=== PATIENT | female | born 1955 | race Caucasian/White ===

== ENCOUNTER → 2017-09-30 | Outpatient (CLI) | payer OTHER ==
--- NOTE | 2017-10-01 10:46 | MM ---
Reason for exam: screening (asymptomatic). Last mammogram was performed 1 year and 1 month ago. History: Family history of breast cancer in mother at age 68 and breast cancer in 2 sisters. Physical Findings: A clinical breast exam by your physician is recommended on an annual basis and results should be correlated with mammographic findings. MG Screening Mammo w CAD Bilateral CC and MLO view(s) were taken. Prior study comparison: August 19, 2016, bilateral MG 3d screening mammo w/cad. December 26, 2010, bilateral digital screening mammo w/CAD. There are scattered fibroglandular densities. No suspicious abnormality. No significant changes when compared with prior studies. ASSESSMENT: Negative, BI-RAD 1 RECOMMENDATION: Routine screening mammogram of both breasts in 1 year.
== END | disposition home or self-care (01) ==
LOC: RADMAMWWP 14:58
PROVIDERS: ATTEND Family Medicine
DX: Z12.31 Encounter for screening mammogram for malignant neoplasm of breast (principal)
CPT/HCPCS: 77067

== ENCOUNTER → 2018-02-26 | Outpatient (CLI) | payer OTHER | END | disposition home or self-care (01) | LOC: LABPAT 10:19 | PROVIDERS: ATTEND Orthopaedic Surgery | DX: Z01.812 Encounter for preprocedural laboratory examination (principal) | CPT/HCPCS: 87070 ==

== ENCOUNTER 2018-03-10 08:36 | Inpatient (IN) | payer OTHER ==
[2018-03-04 13:05] VITALS: BMI 39.9
--- NOTE | 2018-03-09 09:44 | HP ---
HISTORY AND PHYSICAL CHIEF COMPLAINT: Left knee pain. HISTORY OF PRESENT ILLNESS: The patient is a 62-year-old female on disability, who presents with progressive left knee pain, worsening over the past couple years. She has tried previous medications and injections with recurrence of her symptoms. She has swelling, locking, and giving way. She has been taking narcotic medications intermittently. PAST MEDICAL HISTORY: Significant for arthritis, hypertension, reflux disease, irritable bowel syndrome, hypothyroidism, asthma, depression. PAST SURGICAL HISTORY: Significant for hysterectomy and cervical fusion. FAMILY HISTORY: Significant for cancer and heart disease. SOCIAL HISTORY: Negative for current tobacco or alcohol use. REVIEW OF SYSTEMS: A 16 point review of systems otherwise reviewed and is noncontributory. PHYSICAL EXAMINATION: The patient is approximately 5 foot 5, 250 pounds of endomorphic habitus. HEENT exam is nonfocal. Neck is supple. She has painless passive motion of her left hip. Straight leg raise is negative. Active motion left knee -10 to 105 degrees of flexion. She has a moderate effusion. She is tender about the medial joint line. Collaterals are stable, Isela is negative, Beverly's elicits medial pain. She has pain with patellofemoral compression. She has genu varum alignment. Her distal neurovascular exam appears to be intact in the left lower extremity. Previous x-rays of the left knee obtained in the office show severe medial and patellofemoral compartment narrowing. IMPRESSION: 1. Left knee severe medial and patellofemoral compartment osteoarthrosis. 2. Increased body mass index of 41.6. RECOMMENDATIONS: I talked to the patient at length regarding her condition and treatment options. At this point, she is quite symptomatic and limited because of pain related to her osteoarthrosis despite extensive conservative measures. She opts to proceed with surgery. We will plan to proceed with left total knee arthroplasty. We will institute DVT prophylaxis postoperatively. MMODL / IJN: [id number] /
[~2018-03-10 08:36] MED LIST: ACETAMINOPHEN TAB 500 MG TAB PO ONE; CLINDAMYCIN 900 MG in DEXTROSE 5% IN WATER 50 ML IVPB ONE; DEXAMETHASONE SOD PHOSPHATE 10 MG/ML 1 ML VIAL IV ONE; MELOXICAM 7.5 MG TAB PO ONE; MIDAZOLAM 2 MG/2 ML VIAL IV PRN; ONDANSETRON 4 MG/2 ML VIAL IVP ONE; SCOPOLAMINE 1.5MG/72HR PATCH TRANSDERM ONE; TRANEXAMIC ACID 1,000 MG in SODIUM CHLORIDE 0.9% 50 ML IVPB ONE; fentaNYL (PF) 50 MCG/ML 2 ML AMP IV PRN
[2018-03-10] MEDS: LACTATED RINGERS 1,000 ML IV SCH (09:08)
[2018-03-10] MEDS ORDERED: LIDOCAINE 1% 20 ML VIAL (10MG/ML) FOR IV START INTRADERMA ONE (09:09)
[2018-03-10] MEDS ORDERED: ROPIVACAINE 246.25 MG, EPINEPHrine 0.5 MG, KETOROLAC 30 MG, cloNIDine HCL/PF 80 MCG, WA... MISCELLANE ONE ×5 (10:15)
--- NOTE | 2018-03-10 10:49 | P.ONQ ---
Anesthesiology Proc Note - PNB - Peripheral Nerve Block Performed Left Adductor Canal Time Out Performed: Yes Procedure Start Time: 09:38 Indication: Acute Post-Operative Pain, Requested by physician (Dr Armando) Sedation Type: Sedate with meaningful contact maintained Preparation: Sterile Prep Position: Supine Catheter: None Needle Types: Other (see comment) (Pajunk) Needle Size: 100mm (4") Needle Gauge: 21 Injectate: 0.5% Ropivacaine (see comment for volume) (20cc) Blood Aspirated: No Pain Paresthesia on Injection Noted: No Resistance on Injection: Normal Events: Other (see comment) (Blood in cather noticed when the needle was pulled out of it. It was decided not to place an indwelling cather, therefore the patient received a single shot blockl. no complications noted)
[2018-03-10] MEDS ORDERED: CLINDAMYCIN 1,800 MG in SODIUM CHLORIDE 0.9% IRRIGATIO 3,000 ML IRRIGATION ONE (11:52)
[2018-03-10] MEDS ORDERED: LACTATED RINGERS 1,000 ML IV ONE (12:38)
[2018-03-10] MEDS ORDERED: HYDROcodone/APAP 7.5-325MG 1 EACH TAB PO PRN (13:00)
[2018-03-10] MEDS ORDERED: MORPHINE SULFATE 2 MG/ML SYRINGE IVP PRN (13:00)
[2018-03-10] MEDS ORDERED: NALOXONE 0.4 MG/ML 1 ML VIAL IV PRN (13:00)
[2018-03-10] MEDS ORDERED: MAGNESIUM HYDROXIDE 2,400 MG/10 ML CUP PO PRN (13:00)
[2018-03-10] MEDS ORDERED: MORPHINE SULFATE 2 MG/ML SYRINGE IV PRN (13:00)
[2018-03-10] MEDS ORDERED: ONDANSETRON 4 MG/2 ML VIAL IVP PRN (13:00)
--- NOTE | 2018-03-10 13:30 | P.OP ---
Date of Procedure: 03/10/18 Preoperative Diagnosis: Left knee severe tricompartmental osteoarthrosis Postoperative Diagnosis: Same Procedure(s) Performed: Left total knee [id number]-[id number]-frsqwniai stabilized Implants: Depuy Attune size 5 cemented femoral component, size 5 cemented tibial component , 9 mm articular surface, 32 mm cemented patellar component. This is a posterior stabilized implant. Anesthesia: local, spinal Surgeon: Jason Armando Applied Statistician #1: Thompson Conner Estimated Blood Loss (ml): 50 Pathology: other (Bone fragments) Condition: stable Disposition: PACU Indications for Procedure: The patient's a 62-year-old female who presents with progressive left knee pain secondary to osteoarthrosis despite conservative measures. A discussion of the risks and benefits of operative intervention versus continued conservative measures was made with patient. She opted to proceed with surgery. Operative risks to include infection, neurovascular injury, development of blood clots, possible component loosening, possible component failure and need for subsequent procedures was discussed. Informed consent was obtained. Operative Findings: As below Description of Procedure: The patient was brought to the operating room, and after induction of spinal anesthesia the left lower extremity was prepped and draped in a normal fashion. The tourniquet was inflated to 270 mmHg. A longitudinal incision extending 3 finger breaths above the superior pole of patella extending to the medial aspect the tibial tubercle was then made. The skin and subcutaneous tissues were divided sharply. Electrocautery was used for hemostasis. A medial parapatellar arthrotomy was then performed. The medial soft tissues to include the superficial and deep portions of the medial collateral ligament as well as the medial hamstring tendons were elevated subperiosteally. The proximal medial tibia osteophytes were also removed. The patella was everted. A portion of the retropatellar fat pad was excised sharply. The knee was then flexed. The anterior cruciate ligament was sacrificed. A starting hole was made in the distal femur 1 m anterior to the posterior cruciate ligament origin. An inch medullary femoral guide was gently inserted planning on 5 valgus distal cut with 9 mm distal resection. The cutting block was pinned in place. The distal cut was then made. The posterior referencing sizing guide was utilized. 3 external rotation was built into the system and verified off the trans-epicondylar axis and the posterior condyles. I felt size 5 was most appropriate. The cutting block was pinned in place. The anterior, posterior, and chamfer cuts were made. The bone fragments were removed. The notch guide was used for the intracondylar box cut. A reciprocating saw was utilized. The bone was removed in one fragment. The trial size 5 femoral components placed and was fully seated. There was good anterior to posterior and medial to lateral fit. The distal peg holes were drilled. The trial component was then removed. An extra medullary tibial guide was utilized in line with the tibial shaft and second metatarsal distally. a 0 posterior slope cutting block was utilized. I planned on 2 mm resection from the medial compartment. The cutting block was pinned in place. The proximal tibial cut was then made. The bone was removed in one fragment. The remnants of the medial and lateral menisci were excised at the capsular junction with electrocautery. The tibia sized most appropriate size 5. The trial femoral and tibial components were placed along with a 9 mm articular surface. I was tight in flexion and extension therefore an additional 2 mm was resected from the proximal tibia utilizing the cutting block. The trial components again were placed along with a 9 mm articular surface. I was able to obtain full flexion and extension with good stability with varus and valgus stress. After several flexion and extension cycles, the tibial rotation was marked with electrocautery in line with the medial one third of the tibial tubercle. Attention was then paid towards the patella. A patella reamer was utilized taking this down to 14 mm of bone stock. A good flush cut was made. The patella sized most appropriately at 32 mm. The peg holes were drilled. The trial components placed. The knee was taken through range of motion. I had good patellofemoral tracking with no hands technique. The trial components were then removed. The tibia was prepared in the appropriate rotation with appropriate drill and keel punch. Posterior osteophytes off the distal femur were carefully removed a curved osteotome. The flexion and extension gaps were checked and felt to be symmetric. The posterior soft tissues were injected with ropivacaine. The bony surfaces were prepared with pulsatile lavage and dried. The tibia was then cemented in placed and was fully seated. Excess cement was removed. The femoral component cemented in placed and was fully seated. Excess cement was removed. The trial 9 mm articular surface was placed in the knee was put in full extension. The patella component was cemented in place. After the cement had sufficiently hardened, the knee was again taken through range of motion. Again I had good stability in flexion and extension with varus and valgus stress. The trial 9 mm articular surface was removed and the final one inserted. This was gently impacted. Care was taken to avoid any soft tissue interposition. Pulsatile lavage was again utilized. The tourniquet was deflated with approximately 70 minutes total tourniquet time. Final hemostasis was obtained with electrocautery. The second dose of IV TXA was given. The medial parapatellar arthrotomy was closed with #2 Ethibond suture. A deep drain was placed exiting laterally. The subcu changed tissues were reapproximated with interrupted 2-0 Vicryl sutures. The skin was reapproximated through a subarticular strata fix suture. Skin tape and adhesive was applied. A sterile dressing was applied. The patient was then awoken from sedation and transferred to recovery room in good condition. Blood loss was estimated at 50 mL. No complications were incurred. Sponge and needle counts were correct at the end of the case.
--- NOTE | 2018-03-10 14:03 | XR ---
EXAMINATION TYPE: XR knee limited LT DATE OF EXAM: 03/10/2018 CLINICAL HISTORY: Left knee pain and arthritis status post total knee replacement. TECHNIQUE: Portable AP and crosstable lateral views of the left knee are obtained immediately postop eratively. COMPARISON: Left knee x-ray March 23, 2015 FINDINGS: Metallic hardware from total left knee arthroplasty is seen and appears satisfactory in al ignment and position. There is evidence of recent surgery with diffuse subcutaneous gas and percutan eous suprapatellar surgical drain noted. IMPRESSION: METALLIC HARDWARE FROM TOTAL LEFT KNEE ARTHROPLASTY IS SATISFACTORY IN ALIGNMENT.
[2018-03-10] MEDS: CLINDAMYCIN 900 MG in DEXTROSE 5% IN WATER 50 ML IVPB SCH ×4 (16:08→22:19)
[2018-03-10] MEDS: traMADol 50 MG TAB PO SCH ×2 (18:03→20:52)
[2018-03-10] MEDS: SENNOSIDES-DOCUSATE SODIUM 1 EACH TAB PO SCH (20:51)
[2018-03-10] MEDS ORDERED: ALBUTEROL NEBULIZED 2.5 MG/3 ML INHALATION PRN (21:03)
--- NOTE | 2018-03-10 22:11 | CONS ---
CONSULTATION DATE OF SERVICE: 03/10/2018 REASON FOR CONSULTATION: Advice regarding hypertension and hyperlipidemia requested by Orthopedic Surgery. HISTORY OF PRESENT ILLNESS: This 62-year-old woman with past medical history of asthma, fibromyalgia, GERD, hypertension, hyperlipidemia, DJD, obstructive sleep apnea being followed by Dr. Ana Amado in the outpatient setting was admitted after left total knee arthroplasty by Dr. Callejas. There is no history of fever, rigors. No headache, loss of consciousness or seizures at this time. PAST MEDICAL HISTORY: Asthma, fibromyalgia, GERD, hypertension, DJD, obstructive sleep apnea. MEDICATIONS PRIOR TO ADMISSION: Include home medications are: 1. Trazodone 300 mg q.h.s. 2. Zocor 40 mg at bedtime. 3. Protonix 40 mg daily. 4. Aleve 220 mg p.o. b.i.d. p.r.n. 5. Claritin 10 mg p.o. daily. 6. Zestril 20 mg p.o. daily. 7. Synthroid 100 mcg p.o. daily. 8. Neurontin 360 mg q.h.s. 9. Cymbalta 60 mg p.o. daily. 10.Vitamin D 3000 daily. 11.Ventolin HFA 1-2 puffs q.6h p.r.n. 12.Tylenol 325 mg q.6h p.r.n. ALLERGIES: PENICILLIN and TETRACYCLINE. FAMILY HISTORY: History of cancer, breast, uterine and cervical in the family. SOCIAL HISTORY: No history of smoking. No history of alcohol intake. REVIEW OF SYSTEMS: ENT: No diminished hearing or diminished vision. CARDIOVASCULAR SYSTEM: No angina. RESPIRATORY SYSTEM: No cough or hemoptysis. GI: No nausea. : No dysuria. NERVOUS SYSTEM: No numbness or weakness. ALLERGY/IMMUNOLOGY: No asthma. MUSCULOSKELETAL: As mentioned earlier. HEMATOLOGY/ONCOLOGY: No history of anemia. ENDOCRINE: Hypothyroidism. CONSTITUTIONAL: As mentioned earlier. DERMATOLOGY: Negative. RHEUMATOLOGY: Negative. PSYCHIATRY: As mentioned earlier. PHYSICAL EXAM: The patient is alert and oriented x3. Pulse 100, blood pressure 170/70, respiration 20, temperature 98.2, pulse ox 92% on room air. HEENT: Conjunctivae normal. Oral mucosa moist. Neck is no jugular venous distention. No carotid bruit. No lymph node enlargement. CARDIOVASCULAR: S1, S2 muffled. No S3, S4. RESPIRATORY: Breath sounds diminished at the bases. No rhonchi, no crackles. ABDOMEN: Soft, nontender. No mass palpable. LEGS: Status post left knee arthroplasty. NERVOUS SYSTEM: Higher functions as mentioned earlier. Moves all four limbs. No focal motor deficits. LYMPHATICS: No lymphadenopathy of the neck, axillae or groin. SKIN: No ulcer, rash or bleeding. LABS: Not available. ASSESSMENT: 1. Status post left total knee arthroplasty. 2. Asthma. 3. Fibromyalgia. 4. Gastroesophageal reflux disease. 5. Hypertension. 6. Hyperlipidemia. 7. Degenerative joint disease. 8. Hypothyroidism. 9. History of depression. RECOMMENDATIONS AND DISCUSSION: In this 62-year-old woman who presented with multiple medical issues at this time I recommend to continue the current medications. Resume the home medications. I would also recommend incentive spirometry and DVT prophylaxis. Hold the NSAIDs for now and we will follow the patient closely with you and the patient may be asked to follow up with the primary physician closely after discharge. Thank you, Dr. Callejas for letting us participate in the care of this patient. DVT prophylaxis. MMODL / IJN: [id number] /
[2018-03-10] MEDS: HYDROcodone/APAP 7.5-325MG 1 EACH TAB PO PRN (22:18)
[2018-03-10] MEDS: ATORVASTATIN 20 MG TAB PO SCH (22:19)
[2018-03-10] MEDS: GABAPENTIN 300 MG CAP PO SCH (22:19)
[2018-03-10] MEDS: traZODone HCL 100 MG TAB PO SCH (22:19)
[2018-03-11] MEDS: LACTATED RINGERS 1,000 ML IV SCH (00:03)
[2018-03-11] MEDS ORDERED: FAMOTIDINE 20 MG TAB PO SCH (09:00)
[2018-03-11 09:32] LABS: Basophils % (A) 0 %; Eosinophils % (A) 0 %; HCT 32.2 % (34.0-46.0); HGB 10.6 gm/dL (11.4-16.0); Lymphocytes % (A) 21 %; MCH 28.6 pg (25.0-35.0); MCHC 32.9 g/dL (31.0-37.0); MCV 87.1 fL (80.0-100.0); Mean Platelet Volume 7.4; Monocytes # (A) 0.4 k/uL (0-1.0); Monocytes % (A) 4 %; Neutrophils # (A) 7.4 k/uL (1.3-7.7); Neutrophils % (A) 74 %; Platelet Count 279 k/uL (150-450); RDW 13.8 % (11.5-15.5); WBC 9.9 k/uL (3.8-10.6)
[2018-03-11] MEDS: LISINOPRIL 20 MG TAB PO SCH (10:40)
[2018-03-11] MEDS: DULoxetine HCL 60 MG CAPSULE.DR PO SCH (10:40)
[2018-03-11] MEDS: LORATADINE 10 MG TAB PO SCH (10:40)
[2018-03-11] MEDS: PANTOPRAZOLE 40 MG TABLET PO SCH (10:40)
[2018-03-11] MEDS: CHOLECALCIFEROL 1,000 UNIT TAB PO SCH (10:40)
[2018-03-11] MEDS: traMADol 50 MG TAB PO SCH ×4 (10:40→22:21)
[2018-03-11] MEDS: RIVAROXABAN 10 MG TAB PO SCH (10:40)
[2018-03-11] MEDS: LEVOTHYROXINE 100 MCG TAB PO SCH (10:40)
[2018-03-11] MEDS: HYDROcodone/APAP 7.5-325MG 1 EACH TAB PO PRN ×2 (13:01→19:28)
--- NOTE | 2018-03-11 13:23 | P.PN ---
Subjective Progress Note Date: 03/11/18 Principal diagnosis: Status post left total knee arthroplasty Patient seen today resting in her hospital bed, she appears comfortable. She is utilizing the CPM. She denies any headaches, lightheadedness, chest pain or shortness breath. Objective - Vital Signs Vital signs: Vital Signs Temp 98.6 F 03/11/18 00:37 Pulse 77 03/11/18 00:37 Resp 16 03/11/18 00:37 BP 93/57 03/11/18 00:37 Pulse Ox 93 L 03/11/18 00:37 Intake & Output 03/10/18 03/11/18 03/11/18 18:59 06:59 18:59 Intake Total 857 1050 400 Output Total 230 750 Balance 627 300 400 Intake: IV 857 Intake, IV Titration 50 400 Amount Clindamycin 900 mg In 50 Dextrose 5% in Water 50 ml @ 100 mls/hr IVPB Q6H [facility] Rx#:[id number] Lactated Ringers 1,000 ml 400 @ 50 mls/hr IV .Q20H [facility] Rx#:[id number] Oral 1000 Output: Urine 180 750 Estimated Blood Loss 50 Other: Voiding Method Indwelling Catheter Indwelling Catheter - Exam Left lower extremity: Incision is clean, dry, and intact. The prineo tape is in good condition. There is minimal soft tissue swelling and ecchymosis surrounding the medial and lateral aspects of the incision. Calf is soft, no tenderness with palpation. Plantar flexion, dorsiflexion, EHL, FHL are intact. Sensory exam to light touch throughout the extremity is intact, dorsal pedis pulses 2+. - Labs CBC & Chem 7: 03/11/18 08:07 Labs: Abnormal Lab Results - Last 24 Hours (Table) 03/11/18 Range/Units 08:07 RBC 3.70 L (3.80-5.40) m/uL Hgb 10.6 L (11.4-16.0) gm/dL Hct 32.2 L (34.0-46.0) % Assessment and Plan Plan: Assessment: 1. Postop day 1 status post left total knee arthroplasty Plan: Pain control, continue use of oral medication GI and DVT prophylaxis, continue current medication Daily dressing changes/ice and elevate Encourage incentive spirometer Continue with physical therapy Medical recommendations Discharge planning: Patient will likely be discharged home tomorrow Time with Patient: Less than 30
--- NOTE | 2018-03-11 13:47 | CDI ---
Last Revision, August 2017 Documentation Clarification Form Date: 03/11/2018 1:34:00 PM From: Mely AraujoSINDI, CCDS Admit Date: 03/10/2018 8:36:00 AM Patient Name: Deyanira Bedolla Visit Number: [id number] Discharge Date: ATTENTION: The Clinical Documentation Specialists (CDI) and [facility] Coding Staff appreciate your assistance in clarifying documentation. Please respond to the clarification below the line at the bottom and electronically sign. The CDI & [facility] Coding staff will review the response and follow-up if needed. Please note: Queries are made part of the Legal Health Record. If you have any questions, please contact the author of this message via ITS. Dr. Jason Armando: Per your history & physical, the patient has an "increased body mass index of 41.6". History/Risk Factors: Hypertension, Hyperlipidemia, Degenerative joint disease, GERD, Fibromyalgia, Asthma and OA of left knee. Clinical Indicators: Presented for elective Left Total Knee Arthroplasty Patients weight is: 108.8 kg Patients height is: 39.9 (per nursing). Physician documentation: 41.6 Nursing Assessment postop: 1 person assist, Obesity, High risk for thrombosis, mobility slightly limited. Treatments: Routine postop care & meds. Incentive spirometry. In order to capture the severity of condition associated with patient BMI of 41.6, a clinical diagnoses needs to be documented by the physician. Please clarify: Obese Morbidly obese Other, please specify Unable to determine Please continue to document in your progress notes and discharge summary in order to capture severity of illness and risk of mortality. Include clinical findings that support your diagnosis. morbidly obese MTDD
[2018-03-11] MEDS: MORPHINE SULFATE 2 MG/ML SYRINGE IVP PRN ×3 (13:57→21:08)
--- NOTE | 2018-03-11 15:05 | PN ---
PROGRESS NOTE DATE OF SERVICE: 03/11/2018. INTERVAL HISTORY: This 62-year-old woman who was admitted after left knee arthroplasty, is being closely monitored. No chest pain. No palpitations. No fever. EXAM: Alert and oriented times three. Pulse 77. Blood pressure 93/52, respiratory rate 16, temperature 98.2, pulse ox 98% on room air. HEENT: Conjunctivae normal. NECK: No jugular venous distention. CARDIOVASCULAR: S1, S2 muffled. RESPIRATION: Breath sounds diminished in the bases. No rhonchi. No crackles. ABDOMEN: Soft, nontender. Legs: Status post surgery. CENTRAL NERVOUS SYSTEM: No focal deficits. LABS: Hemoglobin 10.6. ASSESSMENT: 1. Status post left total knee arthroplasty. 2. Asthma. 3. Fibromyalgia. 4. Gastroesophageal reflux disease. 5. Hypertension. 6. Hyperlipidemia. 7. Degenerative joint disease. 8. Hypothyroidism. 9. History of depression. RECOMMENDATIONS AND DISCUSSION: Recommend to continue current medications, management and symptomatic treatment. Otherwise, at this time, resume home medications. DVT prophylaxis. Incentive spirometry. Continue to monitor. Further recommendations to follow. MMODL / IJN: [id number] /
--- NOTE | 2018-03-11 17:37 | US ---
EXAMINATION TYPE: US venous doppler duplex LE LT DATE OF EXAM: 03/11/2018 5:25 PM COMPARISON: NONE CLINICAL HISTORY: pain. Left leg pain 1 day post op. SIDE PERFORMED: Left TECHNIQUE: The lower extremity deep venous system is examined utilizing real time linear array sonog kathya with graded compression, doppler sonography and color-flow sonography. VESSELS IMAGED: External Iliac Vein (EIV) Common Femoral Vein Deep Femoral Vein Greater Saphenous Vein * Femoral Vein Popliteal Vein Small Saphenous Vein * Proximal Calf Veins (* superficial vessels FINDINGS: Grayscale, color doppler, spectral doppler imaging performed of the deep veins of the lower extremities. There is normal flow, compressibility, vascular waveforms. IMPRESSION: NEGATIVE FOR DVT LEFT LOWER EXTREMITY.
[2018-03-11] MEDS: GABAPENTIN 300 MG CAP PO SCH (20:58)
[2018-03-11] MEDS: ATORVASTATIN 20 MG TAB PO SCH (20:59)
[2018-03-11] MEDS: traZODone HCL 100 MG TAB PO SCH (20:59)
[2018-03-11] MEDS: SENNOSIDES-DOCUSATE SODIUM 1 EACH TAB PO SCH (21:00)
[2018-03-11] MEDS ORDERED: ATORVASTATIN 20 MG TAB PO SCH (21:00)
[2018-03-11] MEDS ORDERED: traZODone HCL 100 MG TAB PO SCH (21:00)
[2018-03-11] MEDS ORDERED: GABAPENTIN 300 MG CAP PO SCH (21:00)
[2018-03-12] MEDS: LACTATED RINGERS 1,000 ML IV SCH (01:01)
[2018-03-12] MEDS: HYDROcodone/APAP 7.5-325MG 1 EACH TAB PO PRN ×3 (01:02→12:08)
[2018-03-12] MEDS: LEVOTHYROXINE 100 MCG TAB PO SCH (05:35)
--- NOTE | 2018-03-12 08:28 | P.PN ---
Subjective Progress Note Date: 03/12/18 Principal diagnosis: Status post left total knee arthroplasty Patient seen today resting in her hospital bed, she appears comfortable. She does admit to increase in pain yesterday. There was concern over pain in the back of the knee, Doppler was ordered for prophylaxis, and was negative for DVT. She notes improvement in the pain this morning. She denies any headaches , lightheadedness, chest pain or shortness breath. Objective - Vital Signs Vital signs: Vital Signs Temp 98.8 F 03/11/18 23:00 Pulse 89 03/11/18 23:00 Resp 18 03/11/18 23:00 BP 128/62 03/11/18 23:00 Pulse Ox 94 L 03/11/18 23:00 Intake & Output 03/11/18 03/12/18 03/12/18 18:59 06:59 18:59 Intake Total 400 600 Balance 400 600 Intake: Intake, IV Titration 400 600 Amount Lactated Ringers 1,000 ml 400 600 @ 50 mls/hr IV .Q20H [facility] Rx#:[id number] Other: Voiding Method Toilet # Voids 3 - Exam Left lower extremity: Incision is clean, dry, and intact. The prineo tape is in good condition. There is minimal soft tissue swelling and ecchymosis surrounding the medial and lateral aspects of the incision. Calf is soft, no tenderness with palpation. Plantar flexion, dorsiflexion, EHL, FHL are intact. Sensory exam to light touch throughout the extremity is intact, dorsal pedis pulses 2+. - Labs CBC & Chem 7: 03/11/18 08:07 Labs: Abnormal Lab Results - Last 24 Hours (Table) 03/11/18 Range/Units 08:07 RBC 3.70 L (3.80-5.40) m/uL Hgb 10.6 L (11.4-16.0) gm/dL Hct 32.2 L (34.0-46.0) % Assessment and Plan Plan: Assessment: 1. Postop day #2 status post left total knee arthroplasty Plan: Pain control, continue use of oral medication GI and DVT prophylaxis, plan for discharge home on Xarelto 10 mg daily for 12 days Daily dressing changes/ice and elevate Encourage incentive spirometer Continue with physical therapy Medical recommendations Discharge planning: Discharged home today Time with Patient: Less than 30
[2018-03-12 08:33] VITALS: BP 111/76; PULSE 92; RESP 16; TEMP 98.7
[2018-03-12] MEDS: traMADol 50 MG TAB PO SCH ×2 (08:34→13:48)
--- NOTE | 2018-03-12 08:34 | P.DS ---
Providers Date of admission: 03/10/18 08:36 Expected date of discharge: 03/12/18 Attending physician: Jason Armando Consults: 03/10/18 13:02 Consult Physician Routine Consulting Provider: Sugey Campbell Consult Reason/Comments: Medical Management Do you want consulting provider notified?: Yes 03/10/18 15:31 Consult Physician Routine Consulting Provider: Lauren Stockton Consult Reason/Comments: medical managment Do you want consulting provider notified?: Yes Primary care physician: [facility] Hospital Course: Date of admission: 03/10/2019 Date of discharge: 03/12/2018 Admission diagnosis: Status post left total knee arthroplasty Discharge diagnosis: Same Attending physician: Dr. Armando Surgical procedures: Left total knee arthroplasty Brief history: Patient is a 62-year-old female with a history of progressive primary left knee osteoarthritis. At this point patient has failed conservative treatment measures and has opted to proceed with a elective left total knee arthroplasty. Hospital course: Details of patient's surgery can be found in operative report. Patient tolerated the procedure well and was subsequently transported to orthopedic floor. Patient's orthopeidc and medical care was provided daily. Patient had daily laboratory tests performed for evaluation of overall blood counts. Patient had daily physical therapy to include strengthening range of motion as well as education with walker ambulation. Patient had daily CPM usage as part of their physical therapy program. Patient was treated with Xarelto for their postoperative DVT prophylaxis during their inpatient stay. Patient was noted to have a relatively uneventful postoperative course. Patient reported satisfactory pain control with oral pain medications by postoperative day 0. Patient showed satisfactory progress with physical therapy. Patient moved steadily through the program and had no difficulty meeting the goals by postoperative day 2. Given patient's otherwise satisfactory course and having met physical therapy goals, plan is to discharge patient home on postoperative day 2. Discharge condition/disposition: Patient will be discharged home in stable condition. Discharge medications: Instructions are given on resumption of patient's normal daily medications per primary care recommendation, in addition patient will be prescribed [place] 7.5 mg/325 mg, Colace 100 mg, Xarelto 10 mg. Discharge instructions: 1. Wound care and infection precautions, keep incision dry and covered while showering, no lotions, creams, moisturizers. No soaking, tubs, pools, hottubs. Do not scrub over the incision. 2. Weight-bear [as tolerated] with walker / cane until follow-up. 3. Ice and elevate when necessary. Do not exceed 20 minutes per hour with ice pack. 4. Utilize compression sleeve until seen at first follow up appointment. 5. Visiting nursing care. 6. Home physical therapy [including home CPM]. 7. Pain meds and anticoagulants per prescription. 8. Pain medication has potential to cause constipation. Increase oral fluid and fiber intake. Contact primary care provider if you have not had a bowel movement within 48 hours after discharge 9. No anti-inflammatory medication until discussed at first post operative visit, this including Motrin, Aleve, Mobic, Diclofenac. 10. Follow up in office at 2 weeks postop with Ismael Conner PA-C 11. Follow up with your primary care doctor 7-10 days after discharge. 12. Contact [facility] with any questions, . Procedures: Left total knee arthroplasty Patient Condition at Discharge: Good Plan - Discharge Summary Discharge Rx Participant: Yes New Discharge Prescriptions: New Rivaroxaban [Xarelto] 10 mg PO DAILY #12 tab Docusate [Colace] 100 mg PO DAILY #30 capsule HYDROcodone/APAP 7.5-325MG [[place] 7.5] 1 - 2 each PO Q6HR PRN #56 tab PRN Reason: Pain No Action Gabapentin [Neurontin] 600 mg PO HS traZODone HCL 300 mg PO HS Loratadine [Claritin] 10 mg PO DAILY Lisinopril [Zestril] 20 mg PO DAILY Levothyroxine Sodium [Synthroid] 100 mcg PO DAILY Simvastatin [Zocor] 40 mg PO HS DULoxetine HCL [Cymbalta] 60 mg PO DAILY Cholecalciferol [Vitamin D3] 1,000 unit PO DAILY Albuterol Inhaler [Ventolin Hfa Inhaler] 1 - 2 puff INHALATION RT-Q6H PRN PRN Reason: Dyspnea Acetaminophen [Tylenol] 325 mg PO Q6H PRN PRN Reason: Pain Pantoprazole Sodium [Protonix] 40 mg PO DAILY Discharge Medication List Acetaminophen [Tylenol] 325 mg PO Q6H PRN 03/04/18 [History] Albuterol Inhaler [Ventolin Hfa Inhaler] 1 - 2 puff INHALATION RT-Q6H PRN [History] Cholecalciferol [Vitamin D3] 1,000 unit PO DAILY 03/04/18 [History] DULoxetine HCL [Cymbalta] 60 mg PO DAILY 03/04/18 [History] Gabapentin [Neurontin] 600 mg PO HS 03/04/18 [History] Levothyroxine Sodium [Synthroid] 100 mcg PO DAILY 03/04/18 [History] Lisinopril [Zestril] 20 mg PO DAILY 03/04/18 [History] Loratadine [Claritin] 10 mg PO DAILY 03/04/18 [History] Pantoprazole Sodium [Protonix] 40 mg PO DAILY 03/04/18 [History] Simvastatin [Zocor] 40 mg PO HS 03/04/18 [History] traZODone HCL 300 mg PO HS 03/04/18 [History] Docusate [Colace] 100 mg PO DAILY #30 capsule 03/12/18 [Rx] HYDROcodone/APAP 7.5-325MG [[place] 7.5] 1 - 2 each PO Q6HR PRN #56 tab 03/12/18 [ Rx] Rivaroxaban [Xarelto] 10 mg PO DAILY #12 tab 03/12/18 [Rx] Follow up Appointment(s)/Referral(s): Thompson Conner PAC [[employer]ENTATIVE] - 2 Weeks Activity/Diet/Wound Care/Special Instructions: [place] is setting up home care and will notify patient of agency - [phone] [id number] Orthopedic Discharge Instructions: 1. Wound care and infection precautions, keep incision dry and covered while showering, no lotions, creams, moisturizers. No soaking, pools, hot tubs. Do not scrub over incision. 2. Weight-bear as tolerated with walker / cane until follow-up. 3. Ice and elevate when necessary. Do not exceed 20 minutes per hour with ice pack. 4. Utilize compression sleeve until seen at first follow up appointment. 5. Visiting nursing care. 6. Home physical therapy including home CPM. 7. Pain meds and anticoagulants per prescription. 8. Pain medication has potential to cause constipation. Increase oral fluid and fiber intake. Contact primary care provider if you have not had a bowel movement within 48 hours after discharge. 9. No anti-inflammatory medication until discussed at first post operative visit, this including Motrin, Aleve, Mobic, Diclofenac. 10. Follow up in office at 2 weeks postop with Ismael Conner PA-C 11. Follow up with your primary care doctor 7-10 days after discharge. 12. Contact [facility] with any questions, . Discharge Disposition: HOME WITH HOME HEALTH SERVICES
[2018-03-12] MEDS: LORATADINE 10 MG TAB PO SCH (08:35)
[2018-03-12] MEDS: CHOLECALCIFEROL 1,000 UNIT TAB PO SCH (08:35)
[2018-03-12] MEDS: LISINOPRIL 20 MG TAB PO SCH (08:35)
[2018-03-12] MEDS: PANTOPRAZOLE 40 MG TABLET PO SCH (08:35)
[2018-03-12] MEDS: DULoxetine HCL 60 MG CAPSULE.DR PO SCH (08:35)
[2018-03-12] MEDS: RIVAROXABAN 10 MG TAB PO SCH (08:35)
--- NOTE | 2018-03-12 14:27 | P.PN ---
Subjective No overnight events patient is clinically doing well is being discharged today her blood pressure is stable. No changes in medications are being made and I did review the vacation reconciliation no further recommendations from medicine perspective. Constitutional: Denied any fatigue denied any fever. Cardio vascular: denied any chest pain, palpitations Gastrointestinal denied any nausea vomiting Pulmonary: Denied any shortness of breath cough Neurologic denied any new focal deficits Objective - Vital Signs Vital signs: Vital Signs Temp 98.7 F 03/12/18 08:32 Pulse 92 03/12/18 08:32 Resp 16 03/12/18 08:32 BP 111/76 03/12/18 08:32 Pulse Ox 95 03/12/18 08:32 Intake & Output 03/11/18 03/12/18 03/12/18 18:59 06:59 18:59 Intake Total 400 600 740 Balance 400 600 740 Intake: Intake, IV Titration 400 600 Amount Lactated Ringers 1,000 ml 400 600 @ 50 mls/hr IV .Q20H WILLIS Rx#:[id number] Oral 740 Other: Voiding Method Toilet # Voids 3 2 - Exam PHYSICAL EXAMINATION: GENERAL: The patient is alert and oriented x3, not in any acute distress. Well developed, well nourished. HEENT: Pupils are round and equally reacting to light. EOMI. No scleral icterus. No conjunctival pallor. Normocephalic, atraumatic. No pharyngeal erythema. No thyromegaly. CARDIOVASCULAR: S1 and S2 present. No murmurs, rubs, or gallops. PULMONARY: Chest is clear to auscultation, no wheezing or crackles. ABDOMEN: Soft, nontender, nondistended, normoactive bowel sounds. No palpable organomegaly. MUSCULOSKELETAL: Deferred to orthopedic surgery EXTREMITIES: No cyanosis, clubbing, or pedal edema. NEUROLOGICAL: Gross neurological examination did not reveal any focal deficits. SKIN: No rashes. - Labs CBC & Chem 7: 03/11/18 08:07 Assessment and Plan Plan: Have is status post left knee arthroplasty: Pain management due to prophylaxis per primary service -Chronic intermittent asthma not in acute exacerbation -Fibromyalgia -Hypertension blood pressure is well controlled postoperatively patient was resumed on on her antidepressants medications postoperatively. -Gastro-esophageal reflux disease -Fibromyalgia -Hyperlipidemia -Hypothyroidism -Depression -Degenerative joint disease Her discharge medication reconciliation was reviewed no further recommendations for medicine perspective patient can be discharged from medicine perspective.
== END 2018-03-12 14:10 | disposition home health service (06) | DRG 470 ==
LOC: 2ORMAIN 08:36 → 3SUR 14:23
PROVIDERS: ADMIT Orthopaedic Surgery; ATTEND Orthopaedic Surgery
PROC: 0SRD0J9 Replacement of Left Knee Joint with Synthetic Substitute, Cemented, Open Approach (ICD-10-PCS; principal; 2018-03-10 10:40)
DX: M17.12 Unilateral primary osteoarthritis, left knee (principal); Z68.41 Body mass index [BMI] 40.0-44.9, adult; E66.01 Morbid (severe) obesity due to excess calories; I10 Essential (primary) hypertension; K21.9 Gastro-esophageal reflux disease without esophagitis; K58.9 Irritable bowel syndrome, unspecified; E03.9 Hypothyroidism, unspecified; J45.20 Mild intermittent asthma, uncomplicated; F32.9 Major depressive disorder, single episode, unspecified; M79.7 Fibromyalgia; E78.5 Hyperlipidemia, unspecified; G47.33 Obstructive sleep apnea (adult) (pediatric); Z79.890 Hormone replacement therapy; Z79.899 Other long term (current) drug therapy; Z90.710 Acquired absence of both cervix and uterus; Z98.1 Arthrodesis status; Z88.1 Allergy status to other antibiotic agents; Z88.0 Allergy status to penicillin; Z80.3 Family history of malignant neoplasm of breast; Z82.49 Family history of ischemic heart disease and other diseases of the circulatory system; Z80.49 Family history of malignant neoplasm of other genital organs
CPT/HCPCS: 85025; 88300; 94640

== ENCOUNTER → 2018-10-06 | Outpatient (CLI) | payer OTHER ==
--- NOTE | 2018-10-12 14:40 | MM ---
Reason for exam: screening (asymptomatic). Last mammogram was performed 1 year ago. History: Family history of breast cancer in mother at age 68 and breast cancer in 2 sisters. Physical Findings: A clinical breast exam by your physician is recommended on an annual basis and results should be correlated with mammographic findings. MG Screening Mammo w CAD Bilateral CC and MLO view(s) were taken. Prior study comparison: September 30, 2017, bilateral MG screening mammo w CAD. August 19, 2016, bilateral MG 3d screening mammo w/cad. There are scattered fibroglandular densities. No significant changes when compared with prior studies. ASSESSMENT: Negative, BI-RAD 1 RECOMMENDATION: Routine screening mammogram of both breasts in 1 year.
== END | disposition home or self-care (01) ==
LOC: RADMAMWWP 08:46
PROVIDERS: ATTEND Physician Assistant
DX: Z12.31 Encounter for screening mammogram for malignant neoplasm of breast (principal)
CPT/HCPCS: 77067

== ENCOUNTER 2019-02-18 13:03 | Observation (INO) | payer OTHER ==
[2019-02-18] MEDS ORDERED: ASPIRIN 81 MG PO STA (13:06)
--- NOTE | 2019-02-18 13:21 | ED ---
General Adult HPI - General Stated complaint: chest pain Time Seen by Provider: 02/18/19 13:06 Source: patient, RN notes reviewed Limitations: no limitations - History of Present Illness Initial comments: 63-year-old female with a past medical history of fibromyalgia, hyperlipidemia, hypertension, thyroid disorder presents to the emergency department for a chief complaint of chest pain 2 days. Patient states 2 days ago she was at her son's name. States she had to walk across the field quite a long wait started to have left-sided chest pain and pressure. States that she became diaphoretic and so mewhat short of breath. Patient at home and this resolved. Patient states yesterday she was in her group grief meeting because her granddaughter of the IPG 6 months ago. States that during this meeting she started to have this chest pressure again and became sweaty. States that she washed her face off in the bathroom and started to feel somewhat better. States she was following up with her doctor today at [facility] for headaches that have been ongoing chronically and when she mentioned the chest pain he wanted her to be evaluated through the emergency department. The patient denies any smoking history. Does admit to history of hyperlipidemia and hypertension. States that sister had an VT requiring stent placement when she was only 39. States her parents both had heart problems but she does not know much about this. States she is pain-free at this time.Patient has no other complaints at this time including abdominal pain, nausea or vomiting, headache, or visual changes. - Related Data Home Medications Medication Instructions Recorded Confirmed Albuterol Inhaler [Ventolin Hfa 1 - 2 puff INHALATION RT-Q6H PRN 03/04/18 10/08/18 Inhaler] DULoxetine HCL [Cymbalta] 60 mg PO BID 03/04/18 10/08/18 Levothyroxine Sodium [Synthroid] 100 mcg PO DAILY 03/04/18 10/08/18 Lisinopril [Zestril] 20 mg PO DAILY 03/04/18 10/08/18 Loratadine [Claritin] 10 mg PO DAILY 03/04/18 10/08/18 traZODone HCL 300 mg PO HS 03/04/18 10/08/18 Gabapentin [Neurontin] 400 mg PO TID 10/08/18 10/08/18 Omeprazole 40 mg PO DAILY 10/08/18 10/08/18 Simvastatin [Zocor] 20 mg PO HS 10/08/18 10/08/18 Previous Rx's Medication Instructions Recorded Cyclobenzaprine [Flexeril] 10 mg PO TID #20 tab 10/08/18 Ibuprofen 600 mg PO TID #30 tablet 10/08/18 Nitrofurantoin Monohyd/M-Cryst 100 mg PO Q12HR #14 cap 10/08/18 [Macrobid] Allergies Allergy/AdvReac Type Severity Reaction Status Date / Time Penicillins Allergy Swelling Verified 02/18/19 13:38 Tetracyclines Allergy Dyspnea Verified 02/18/19 13:38 Review of Systems ROS Statement: Those systems with pertinent positive or pertinent negative responses have been documented in the HPI. ROS Other: All systems not noted in ROS Statement are negative. Past Medical History Past Medical History: Fibromyalgia, Hyperlipidemia, Hypertension, Thyroid Disorder Additional Past Medical History / Comment(s): Chronic back pain. History of Any Multi-Drug Resistant Organisms: None Reported Past Surgical History: Hysterectomy Additional Past Surgical History / Comment(s): cervical fusion Oct 2017 Past Anesthesia/Blood Transfusion Reactions: No Reported Reaction Past Psychological History: Depression Smoking Status: Never smoker Past Alcohol Use History: None Reported Past Drug Use History: None Reported - Past Family History Mother Sister(s) Family Medical History: Cancer Additional Family Medical History / Comment(s): breast,uterine,cervical Brother(s) Family Medical History: Cancer General Exam General appearance: alert, in no apparent distress Head exam: Present: atraumatic, normocephalic, normal inspection Eye exam: Present: normal appearance, PERRL, EOMI. Absent: scleral icterus, conjunctival injection, periorbital swelling ENT exam: Present: normal exam, mucous membranes moist Neck exam: Present: normal inspection, full ROM. Absent: tenderness, meningismus, lymphadenopathy Respiratory exam: Present: normal lung sounds bilaterally. Absent: respiratory distress, wheezes, rales, rhonchi, stridor, chest wall tenderness Cardiovascular Exam: Present: regular rate, normal rhythm, normal heart sounds. Absent: systolic murmur, diastolic murmur, rubs, gallop, clicks GI/Abdominal exam: Present: soft, normal bowel sounds. Absent: distended, tenderness, guarding, rebound, rigid Neurological exam: Present: alert, oriented X3, CN II-XII intact Psychiatric exam: Present: normal affect, normal mood Course Vital Signs 02/18/19 02/18/19 13:15 14:36 Temperature 98.1 F 97.9 F Pulse Rate 72 71 Respiratory 18 18 Rate Blood Pressure 142/85 143/73 O2 Sat by Pulse 99 100 Oximetry EKG Findings - EKG Comments: EKG Findings:: Normal sinus rhythm, ventricular rate 75, CT interval 158, QTC 439, no evidence of ST elevation or depression, T-wave inversions noted in V2 V3 Medical Decision Making - Medical Decision Making 63-year-old female with a past medical history of fibromyalgia, hyperlipidemia, hypertension since to the emergency department for chest pain 2 days. Chest pain does seem to be secondary to exertion and includes diaphoresis and a pressure in her chest. Also include shortness of breath. Patient is currently pain-free at this time but did come to the ER because her primary care provider wanted her to be seen. CBC and CMP are unremarkable. Troponin is negative. EKG does not show any evidence of elevation or depressions but does show inverted T waves in V2 V3. Patient was given aspirin however as she denies any chest pain whatsoever she was not heparinized. Patient is complaining of headache which is chronic and has been ongoing for several months. Will be given Tylenol for this. Vitals are stable. Patient will be admitted for cardiology consultation and trending troponin. - Lab Data Result diagrams: 02/18/19 13:15 02/18/19 13:15 Lab Results 02/18/19 02/18/19 02/18/19 Range/Units 13:15 13:15 13:15 WBC 5.6 (3.8-10.6) k/uL RBC 4.20 (3.80-5.40) m/uL Hgb 11.8 (11.4-16.0) gm/dL Hct 35.4 (34.0-46.0) % MCV 84.5 (80.0-100.0) fL MCH 28.1 (25.0-35.0) pg MCHC 33.3 (31.0-37.0) g/dL RDW 13.9 (11.5-15.5) % Plt Count 321 (150-450) k/uL Neutrophils % 48 % Lymphocytes % 39 % Monocytes % 7 % Eosinophils % 3 % Basophils % 1 % Neutrophils # 2.7 (1.3-7.7) k/uL Lymphocytes # 2.2 (1.0-4.8) k/uL Monocytes # 0.4 (0-1.0) k/uL Eosinophils # 0.2 (0-0.7) k/uL Basophils # 0.0 (0-0.2) k/uL PT 9.6 (9.0-12.0) sec INR 0.9 (<1.2) APTT 23.9 (22.0-30.0) sec Sodium 139 (137-145) mmol/L Potassium 4.3 (3.5-5.1) mmol/L Chloride 104 (98-107) mmol/L Carbon Dioxide 29 (22-30) mmol/L Anion Gap 6 mmol/L BUN 16 (7-17) mg/dL Creatinine 0.81 (0.52-1.04) mg/dL Est GFR (CKD-EPI)AfAm >90 (>60 ml/min/1.73 sqM) Est GFR (CKD-EPI)NonAf 79 (>60 ml/min/1.73 sqM) Glucose 99 (74-99) mg/dL Calcium 9.5 (8.4-10.2) mg/dL Magnesium 1.9 (1.6-2.3) mg/dL Total Bilirubin 0.4 (0.2-1.3) mg/dL AST 21 (14-36) U/L ALT 22 (9-52) U/L Alkaline Phosphatase 60 (38-126) U/L Troponin I (0.000-0.034) ng/mL Total Protein 7.1 (6.3-8.2) g/dL Albumin 4.4 (3.5-5.0) g/dL /03/03 Range/Units 13:15 WBC (3.8-10.6) k/uL RBC (3.80-5.40) m/uL Hgb (11.4-16.0) gm/dL Hct (34.0-46.0) % MCV (80.0-100.0) fL MCH (25.0-35.0) pg MCHC (31.0-37.0) g/dL RDW (11.5-15.5) % Plt Count (150-450) k/uL Neutrophils % % Lymphocytes % % Monocytes % % Eosinophils % % Basophils % % Neutrophils # (1.3-7.7) k/uL Lymphocytes # (1.0-4.8) k/uL Monocytes # (0-1.0) k/uL Eosinophils # (0-0.7) k/uL Basophils # (0-0.2) k/uL PT (9.0-12.0) sec INR (<1.2) APTT (22.0-30.0) sec Sodium (137-145) mmol/L Potassium (3.5-5.1) mmol/L Chloride (98-107) mmol/L Carbon Dioxide (22-30) mmol/L Anion Gap mmol/L BUN (7-17) mg/dL Creatinine (0.52-1.04) mg/dL Est GFR (CKD-EPI)AfAm (>60 ml/min/1.73 sqM) Est GFR (CKD-EPI)NonAf (>60 ml/min/1.73 sqM) Glucose (74-99) mg/dL Calcium (8.4-10.2) mg/dL Magnesium (1.6-2.3) mg/dL Total Bilirubin (0.2-1.3) mg/dL AST (14-36) U/L ALT (9-52) U/L Alkaline Phosphatase (38-126) U/L Troponin I <0.012 (0.000-0.034) ng/mL Total Protein (6.3-8.2) g/dL Albumin (3.5-5.0) g/dL - EKG Data -: EKG Interpreted by Me (and Dr Aguillon) Disposition Clinical Impression: Chest pain Disposition: ADMITTED IP TO THIS HOSP Condition: Fair Is patient prescribed a controlled substance at d/c from ED?: No Referrals: [facility],Clinic [Primary Care Provider] - 1-2 days Time of Disposition: 15:06
[2019-02-18 13:51] LABS: Basophils % (A) 1 %; Eosinophils # (A) 0.2 k/uL (0-0.7); Eosinophils % (A) 3 %; HCT 35.4 % (34.0-46.0); HGB 11.8 gm/dL (11.4-16.0); Lymphocytes # (A) 2.2 k/uL (1.0-4.8); Lymphocytes % (A) 39 %; MCH 28.1 pg (25.0-35.0); MCHC 33.3 g/dL (31.0-37.0); MCV 84.5 fL (80.0-100.0); Mean Platelet Volume 7.6; Monocytes # (A) 0.4 k/uL (0-1.0); Monocytes % (A) 7 %; Neutrophils # (A) 2.7 k/uL (1.3-7.7); Neutrophils % (A) 48 %; Platelet Count 321 k/uL (150-450); RDW 13.9 % (11.5-15.5); WBC 5.6 k/uL (3.8-10.6)
[2019-02-18 13:58] LABS: ALT 22 U/L (9-52); AST 21 U/L (14-36); African American GFR (CKD) >90 (>60 ml/min/1.73 sqM); Albumin 4.4 g/dL (3.5-5.0); Alkaline Phosphatase 60 U/L (38-126); Anion Gap 6 mmol/L; Blood Urea Nitrogen 16 mg/dL (7-17); Calcium 9.5 mg/dL (8.4-10.2); Carbon Dioxide 29 mmol/L (22-30); Chloride 104 mmol/L (98-107); Glucose 99 mg/dL (74-99); Magnesium 1.9 mg/dL (1.6-2.3); Potassium 4.3 mmol/L (3.5-5.1); Sodium 139 mmol/L (137-145); Total Bilirubin 0.4 mg/dL (0.2-1.3); Total Protein 7.1 g/dL (6.3-8.2)
[2019-02-18 14:06] LABS: INR 0.9 (<1.2); Partial Thromboplastin Time 23.9 sec (22.0-30.0); Prothrombin Time 9.6 sec (9.0-12.0)
--- NOTE | 2019-02-18 14:18 | XR ---
EXAMINATION TYPE: XR chest 2V DATE OF EXAM: 02/18/2019 COMPARISON: None INDICATION: Chest pain TECHNIQUE: Frontal and lateral views of the chest are obtained. FINDINGS: The heart size is normal. The pulmonary vasculature is normal. The lungs are clear. IMPRESSION: 1. No acute pulmonary process.
[2019-02-18] MEDS ORDERED: ACETAMINOPHEN TAB 325 MG TAB PO STA (15:03)
[2019-02-18] MEDS ORDERED: NITROGLYCERIN SL TABS 0.4 MG TAB SUBLINGUAL PRN (15:06)
[2019-02-18] MEDS ORDERED: SODIUM CHLORIDE 0.9% 1,000 ML IV STA (15:09)
[2019-02-18] MEDS ORDERED: FLUTICASONE 50MCG/SPRAY NASAL 16GM EA NOSTRIL PRN (23:15)
[2019-02-18] MEDS ORDERED: ATORVASTATIN 20 MG TAB PO SCH (23:15)
[2019-02-18] MEDS ORDERED: traZODone HCL 50 MG TAB PO SCH (23:15)
[2019-02-18] MEDS: LISINOPRIL 20 MG TAB PO SCH (23:27)
[2019-02-18] MEDS: LORATADINE 10 MG TAB PO SCH (23:28)
[2019-02-18] MEDS: GABAPENTIN 400 MG CAP PO SCH (23:28)
[2019-02-19] MEDS: Carboxymethylcellulose Sodium [Refresh Tears] BOTH EYES SCH ×2 (01:06→12:10)
[2019-02-19 02:39] LABS: Cholesterol 155 mg/dL (<200); HDL Cholesterol 57 mg/dL (40-60); LDL Cholesterol,Calculated 78 mg/dL (0-99); Triglycerides 102 mg/dL (<150)
[2019-02-19] MEDS ORDERED: LEVOTHYROXINE 100 MCG TAB PO SCH (06:30)
--- NOTE | 2019-02-19 07:39 | P.CRDCN ---
History of Present Illness Consult date: 02/19/19 Chief complaint: Chest pain History of present illness: This is a pleasant 63-year-old female patient with a past medical history significant for hypertension as well as dyslipidemia and history of depression presented to the emergency room complaining of chest discomfort. She was in her usual state of health when she was watching a baseball game with her grandson the day before yesterday when she was walking to her car and started experien cing discomfort in the mid of the chest, as a pressure on the chest, without any radiation to the arm or neck or shoulders but it was associated with shortness of breath as well as a sweating. The discomfort lasted for about 15 minutes. The following day, she was walking in the hallway when she started experiencing chest discomfort again. She described it as a pressure again on the chest without any radiation and without any associated symptoms at this time. The patient does have hypertension as well as dyslipidemia. She is not a smoker. She does have fairly significant family history of coronary artery disease with her sister who does have CAD and prior stenting and she is in the 30s. The EKG showed sinus rhythm with nonspecific changes. The cardiac enzymes were checked and came in to be unremarkable. The chest x-ray did not show any acute abnormalities. Past Medical History Past Medical History: Fibromyalgia, Hyperlipidemia, Hypertension, Thyroid Disorder Additional Past Medical History / Comment(s): Chronic back pain. hypothyroid. History of Any Multi-Drug Resistant Organisms: None Reported Past Surgical History: Hysterectomy Additional Past Surgical History / Comment(s): cervical fusion Oct 2017, left total knee replacement. Past Anesthesia/Blood Transfusion Reactions: No Reported Reaction Past Psychological History: Anxiety, Depression Smoking Status: Never smoker Past Alcohol Use History: None Reported Past Drug Use History: None Reported - Past Family History Mother Sister(s) Family Medical History: Cancer Additional Family Medical History / Comment(s): breast,uterine,cervical Brother(s) Family Medical History: Cancer Medications and Allergies Home Medications Medication Instructions Recorded Confirmed Type Levothyroxine Sodium [Synthroid] 100 mcg PO DAILY 03/04/18 02/18/19 History Lisinopril [Zestril] 20 mg PO DAILY 03/04/18 02/18/19 History Loratadine [Claritin] 10 mg PO DAILY 03/04/18 02/18/19 History traZODone HCL 300 mg PO HS 03/04/18 02/18/19 History Gabapentin [Neurontin] 400 mg PO TID 10/08/18 02/18/19 History Carboxymethylcellulose Sodium 1 drop BOTH EYES TID 02/18/19 02/18/19 History [Refresh Tears] Cholecalciferol [Vitamin D3 (25 1,000 unit PO DAILY 02/18/19 02/18/19 History Mcg = 1000 Iu)] DULoxetine HCL [Cymbalta] 90 mg PO DAILY 02/18/19 02/18/19 History Fluticasone Nasal [place] [Flonase 1 spray EA NOSTRIL DAILY 02/18/19 02/18/19 History Nasal [place]] Meloxicam 15 mg PO DAILY 02/18/19 02/18/19 History [place]-3 Fatty Acids/Fish Oil [Fish 1 cap PO DAILY 02/18/19 02/18/19 History Oil 1,000 mg Softgel] Pantoprazole [Protonix] 40 mg PO DAILY 02/18/19 02/18/19 History Simvastatin [Zocor] 40 mg PO HS 02/18/19 02/18/19 History Allergies Allergy/AdvReac Type Severity Reaction Status Date / Time Penicillins Allergy Swelling Verified 02/18/19 15:54 Tetracyclines Allergy Dyspnea Verified 02/18/19 15:54 Physical Exam Vitals: Vital Signs Temp Pulse Pulse Resp BP BP Pulse Ox 02/19/19 07:10 97.9 F 65 16 126/78 96 02/19/19 04:00 76 16 02/19/19 03:56 97.8 F 67 16 128/66 94 L 02/19/19 00:00 67 16 02/18/19 23:38 97.9 F 67 16 113/56 95 02/18/19 20:00 70 16 02/18/19 19:43 98.2 F 68 16 116/72 94 L 02/18/19 17:35 98.2 F 70 16 114/71 100 02/18/19 17:02 98.2 F 68 18 133/69 100 02/18/19 15:30 72 18 117/73 100 02/18/19 14:36 97.9 F 71 18 143/73 100 02/18/19 13:15 98.1 F 72 18 142/85 99 Intake and Output 02/18/19 02/19/19 02/19/19 22:59 06:59 14:59 Other: Voiding Method Toilet Toilet # Voids 2 - Constitutional General appearance: no acute distress - Respiratory Respiratory: bilateral: CTA - Cardiovascular Rhythm: regular Heart sounds: normal: S1, S2 Results 02/18/19 13:15 02/18/19 13:15 Cardiac Enzymes 02/18/19 02/18/19 02/18/19 Range/Units 13:15 13:15 18:51 AST 21 (14-36) U/L Troponin I <0.012 <0.012 (0.000-0.034) ng/mL 02/19/19 Range/Units 01:00 AST (14-36) U/L Troponin I <0.012 (0.000-0.034) ng/mL Coagulation 02/18/19 Range/Units 13:15 PT 9.6 (9.0-12.0) sec APTT 23.9 (22.0-30.0) sec Lipids 02/18/19 Range/Units 13:15 Triglycerides 102 (<150) mg/dL Cholesterol 155 (<200) mg/dL HDL Cholesterol 57 (40-60) mg/dL CBC 02/18/19 Range/Units 13:15 WBC 5.6 (3.8-10.6) k/uL RBC 4.20 (3.80-5.40) m/uL Hgb 11.8 (11.4-16.0) gm/dL Hct 35.4 (34.0-46.0) % Plt Count 321 (150-450) k/uL Comprehensive Metabolic Panel 02/18/19 Range/Units 13:15 Sodium 139 (137-145) mmol/L Potassium 4.3 (3.5-5.1) mmol/L Chloride 104 (98-107) mmol/L Carbon Dioxide 29 (22-30) mmol/L BUN 16 (7-17) mg/dL Creatinine 0.81 (0.52-1.04) mg/dL Glucose 99 (74-99) mg/dL Calcium 9.5 (8.4-10.2) mg/dL AST 21 (14-36) U/L ALT 22 (9-52) U/L Alkaline Phosphatase 60 (38-126) U/L Total Protein 7.1 (6.3-8.2) g/dL Albumin 4.4 (3.5-5.0) g/dL Current Medications Generic Name Dose Route Start Last Admin Trade Name Freq PRN Reason Stop Dose Admin Aspirin 325 mg 02/19/19 09:00 Aspirin PO DAILY [facility] Atorvastatin Calcium 20 mg 02/18/19 23:15 02/18/19 23:27 Lipitor PO 20 mg HS WILLIS Administration Cholecalciferol 1,000 unit 02/19/19 09:00 Vitamin D3 (25 Mcg = 1000 Iu) PO DAILY [facility] Duloxetine HCl 90 mg 02/19/19 09:00 Cymbalta PO DAILY [facility] Fluticasone Propionate 1 spray 02/18/19 23:15 Flonase Nasal [place] EA NOSTRIL DAILY PRN ALLERGIES Gabapentin 400 mg 02/18/19 23:15 02/18/19 23:28 Neurontin PO 400 mg TID WILLIS Administration Levothyroxine Sodium 100 mcg 02/19/19 06:30 02/19/19 05:29 Synthroid PO 100 mcg DAILY@0630 [facility] Administration Lisinopril 20 mg 02/18/19 23:15 02/18/19 23:27 Zestril PO Not Given DAILY [facility] Loratadine 10 mg 02/18/19 23:15 02/18/19 23:28 Claritin PO Not Given DAILY [facility] Nitroglycerin 0.4 mg 02/18/19 15:06 Nitrostat SUBLINGUAL Q5M PRN Chest Pain Carboxymethylcellulo 1 drop 02/18/19 23:15 02/19/19 01:06 se Sodium [Refresh BOTH EYES Not Given Tears] TID [facility] Pantoprazole Sodium 40 mg 02/19/19 09:00 Protonix PO DAILY [facility] Trazodone HCl 300 mg 02/18/19 23:15 02/18/19 23:27 Desyrel PO 300 mg HS [facility] Administration Intake and Output 02/18/19 02/19/19 02/19/19 22:59 06:59 14:59 Other: Voiding Method Toilet Toilet # Voids 2 02/18/19 13:15 02/18/19 13:15 Assessment and Plan Assessment: Assessment #1 intermittent episodes of chest discomfort #2 multiple risk factors for CAD including hypertension and dyslipidemia #3 significant family history of coronary artery disease Plan #1 the patient was ruled out for acute coronary syndrome #2 I am concerned about severe CAD behind her symptoms #3 I did recommend proceeding with a stress test and echocardiogram #4 follow-up with the patient Thank you for allowing us participate in her care
[2019-02-19] MEDS ORDERED: AMINOPHYLLINE 500 MG/20 ML VIAL IV PRN (07:41)
[2019-02-19] MEDS ORDERED: CAFFEINE CITRATE 60 MG/3 ML VIAL IV PRN (07:41)
--- NOTE | 2019-02-19 07:56 | HP ---
HISTORY AND PHYSICAL DATE OF SERVICE: 02/18/2019 CHIEF COMPLAINT: Chest pain. HISTORY OF PRESENT ILLNESS: This 63-year-old woman with a past medical history of multiple medical problems including fibromyalgia, hypertension, hyperlipidemia, history of DJD, anxiety and depression being followed by [facility] in the outpatient setting was complaining of significant social stressors. The patient apparently had a stress test some time ago which was reported negative. The results are not available at this time. Currently, the patient is complaining of chest pain which is mostly in central part and left side of the chest for the last 2 days. The pain was increasing on walking and also sharp and pressure type of character and the patient also had shortness of breath, and as well as diaphoresis also. The patient came to [facility] admitted for evaluation and treatment. The initial troponins are negative at this time. Initial EKG showed ST changes. There is no history of fever, rigors. No headache, loss of consciousness or seizures. Patient had family history of coronary artery disease also. PAST MEDICAL HISTORY: Past medical history of fibromyalgia, hyperlipidemia, hypertension, hypothyroidism, history of anxiety and depression. MEDICATIONS ARE: 1. Trazodone 300 mg q.h.s. 2. Zocor 40 mg q.h.s. 3. Protonix 40 mg p.o. daily. 4. Synthroid 100 mcg p.o. daily. 5. Vitamin D 3000 mg b.i.d. 6. Meloxicam 50 mg p.o. daily. 7. Neurontin 400 mg p.o. t.i.d. 8. Cymbalta 90 mg p.o. daily. 9. Refresh 1 drop eyes t.i.d. 10.Fish oil 1 p.o. daily. 11.Claritin 10 mg p.o. daily. 12.Zestril 20 mg p.o. daily. 13.Flonase 1 spray daily. ALLERGIES: PENICILLIN. FAMILY HISTORY: History of breast cancer, uterine cancer, cervical cancer. SOCIAL HISTORY: No history of smoking. No history of alcohol intake. REVIEW OF SYSTEMS: ENT: No diminished vision. No diminished hearing. CARDIOVASCULAR SYSTEM: As mentioned earlier. RESPIRATORY: As mentioned earlier. GI no nausea or vomiting. no dysuria. NERVOUS SYSTEM: No angina or palpitations. ALLERGY/IMMUNOLOGY: No asthma or hayfever. MUSCULOSKELETAL as mentioned earlier. HEMATOLOGY/ONCOLOGY: No history of anemia. ENDOCRINE: No history of diabetes. The patient has hypothyroidism. CONSTITUTIONAL: As mentioned earlier. DERMATOLOGY: Negative. RHEUMATOLOGY: Negative. PSYCHIATRY: As mentioned earlier. PHYSICAL EXAMINATION: GENERAL: Alert and oriented x3. VITAL SIGNS: Pulse is 67. Blood pressure 113/56, respirations 16, temperature 97.9, pulse ox 94% on room air. HEENT: Conjunctivae normal. Oral mucosa moist. NECK is no jugular venous distention. No carotid bruit. No lymph node enlargement. CARDIOVASCULAR system: S1, S2 muffled. RESPIRATORY: Breath sounds diminished in the bases. A few scattered rhonchi. No crackles. ABDOMEN: Soft, nontender. No mass palpable. LEGS: No edema. No swelling. NERVOUS SYSTEM: Higher functions as mentioned earlier. Moves all 4 limbs. No focal motor or sensory deficits. LYMPHATICS: No lymph nodes palpable in the neck, axillae or groin. JOINTS no active deforming arthropathy. LABS: At this time shows CBC within normal limits. INR is 0.9, PTT is 9.6. CMP within normal limits. ASSESSMENT: 1. Chest pain possible unstable angina. 2. Hypertension. 3. Hyperlipidemia. 4. Fibromyalgia. 5. Social stressors. 6. Hypothyroid. 7. Chronic back pain. 8. History of cervical fusion. 9. History of anxiety and depression. 10.Obesity with body mass index of 40.9. RECOMMENDATIONS AND DISCUSSION: This 63-year-old woman who presented with multiple complex medical issues, we will monitor the patient closely. Continue the current medications, management and symptomatic treatment. Unstable angina protocol. Closely follow with Cardiology. Resume the home medications. Otherwise, I would also recommend review of the previous stress test and continue to monitor. supply service worker to address social issues. Repeat labs will be ordered. Prognosis guarded because of multiple complex medical issues. Discussed with the patient. A copy of dictation being forwarded to Dr. Marino who is the primary physician. MMJOSHL / SAMANTHAN: [id number] /
[2019-02-19] MEDS ORDERED: DIPYRIDAMOLE IV ONE (08:00)
[2019-02-19] MEDS ORDERED: SODIUM CHLORIDE 0.9% IV ONE (08:00)
[2019-02-19] MEDS ORDERED: DULoxetine HCL 30 MG CAPSULE.DR PO SCH (09:00)
[2019-02-19] MEDS ORDERED: CHOLECALCIFEROL 1,000 UNIT TAB PO SCH (09:00)
[2019-02-19] MEDS ORDERED: NON-FORMULARY DRUG (Omega-3 Fatty Acids/Fish Oil [Fish Oil 1,000 Mg Softgel] 1 CAP) PO SCH (09:00)
[2019-02-19] MEDS ORDERED: ASPIRIN 325 MG TAB PO SCH (09:00)
[2019-02-19] MEDS ORDERED: PANTOPRAZOLE 40 MG TABLET PO SCH (09:00)
--- NOTE | 2019-02-19 10:39 | ECHOF ---
Referral Reason:cp MEASUREMENTS -------- HEIGHT: 165.1 cm WEIGHT: 111.6 kg BP: 126/78 RVIDd: 2.4 cm (< 3.3) IVSd: 1.6 cm (0.6 - 1.1) LVIDd: 3.9 cm (3.9 - 5.3) LVPWd: 1.6 cm (0.6 - 1.1) IVSs: 1.9 cm LVIDs: 2.6 cm LVPWs: 1.8 cm LAESV Index (A-L): 14.27 ml/m Ao Diam: 3.4 cm (2.0 - 3.7) AV Cusp: 2.0 cm (1.5 - 2.6) LA Diam: 3.5 cm (2.7 - 3.8) MV EXCURSION: 8.677 mm (> 18.000) MV EF SLOPE: 84 mm/s (70 - 150) EPSS: 0.6 cm MV E Farzad: 0.60 m/s MV DecT: 223 ms MV A Farzad: 0.63 m/s MV E/A Ratio: 0.95 RAP: 5.00 mmHg RVSP: 20.11 mmHg FINDINGS -------- Sinus rhythm. This was a technically good study. The left ventricular size is normal. There is moderate concentric left ventricular hypertrophy. O verall left ventricular systolic function is normal with, an EF between 55 - 60 %. The right ventricle is normal in size. The left atrial size is normal. The right atrial size is normal. Interatrial and interventricular septum intact. The aortic valve is trileaflet and appears structurally normal. The mitral valve is normal. There is trace mitral regurgitation. Trace tricuspid regurgitation present. Right ventricular systolic pressure is normal at < 35 mmHg. There is no pulmonic regurgitation present. The aortic root size is normal. Normal inferior vena cava with normal inspiratory collapse consistent with estimated right atrial pre ssure of 5 mmHg. There is no pericardial effusion. CONCLUSIONS -------- 1. Sinus rhythm. 2. This was a technically good study. 3. The left ventricular size is normal. 4. There is moderate concentric left ventricular hypertrophy. 5. Overall left ventricular systolic function is normal with, an EF between 55 - 60 %. 6. The right ventricle is normal in size. 7. The left atrial size is normal. 8. The right atrial size is normal. 9. Interatrial and interventricular septum intact. 10. The aortic valve is trileaflet and appears structurally normal. 11. The mitral valve is normal. 12. There is trace mitral regurgitation. 13. Trace tricuspid regurgitation present. 14. Right ventricular systolic pressure is normal at < 35 mmHg. 15. There is no pulmonic regurgitation present. 16. The aortic root size is normal. 17. Normal inferior vena cava with normal inspiratory collapse consistent with estimated right atrial pressure of 5 mmHg. 18. There is no pericardial effusion. CEMENT TESTER ASSISTANT: Lainey Conn RDCS
[2019-02-19 12:10] VITALS: BP 121/64; PULSE 72; RESP 17; TEMP 98.4
[2019-02-19] MEDS: LORATADINE 10 MG TAB PO SCH (12:13)
[2019-02-19] MEDS: LISINOPRIL 20 MG TAB PO SCH (12:14)
[2019-02-19] MEDS: GABAPENTIN 400 MG CAP PO SCH (12:14)
--- NOTE | 2019-02-19 12:40 | NM ---
EXAMINATION TYPE: NM stress persantine cardiolit DATE OF EXAM: 02/19/2019 COMPARISON: NONE HISTORY: Chest pain TECHNIQUE: After the intravenous administration of 10.3 mCi Tc 99m Sestamibi - Cardiolite resting SP ECT images acquired 60 minutes post injection. The patient received 64 mg Persantine, 25.7 mCi Tc 99m Sestamibi - Stress images obtained 35 minutes post injection FINDINGS: Review of stress and rest SPECT images demonstrates decreased radio pharmaceutical uptake along the i nferolateral left ventricle extending towards the apex on stress as compared to rest images. Gated a nalysis shows normal wall motion with an estimated left ventricular ejection fraction of 62 %. IMPRESSION: Pharmacologically induced left ventricular myocardial ischemia
--- NOTE | 2019-02-19 13:44 | EST ---
EXERCISE STRESS DATE OF SERVICE: 02/19/2019 AGE: 63 SEX: Female HT: 5'5" WT: 246 PROTOCOL: Persantine Cardiolite STAGE: DURATION OF EXERCISE: HEART RATE REST: 64 BLOOD PRESSURE REST: 122/70 MAXIMUM HEART RATE ACHIEVED: 83 MAXIMUM BLOOD PRESSURE: 128/67 85% MPHR: 135 100% MPHR: 159 METS: INDICATIONS: Chest pain. CLINICAL INFORMATION: STRESS DATA: Heart rate is 64, pressure 122/70 mmHg. Baseline EKG showed sinus mechanism. There was 64 mg of Persantine given over 15 seconds per protocol. Max heart rate was 83 beats per minute. Maximum pressure was 128/67 mmHg. Clinically the patient did not have any symptoms and the EKG did not show any significant ST or T-wave abnormalities concerning for ischemia. CONCLUSION: 1. Nondiagnostic electrocardiogram stress testing in response to Persantine. 2. Please follow up on the Cardiolite portion on separate report from radiology department. MMODL / IJN: [id number] /
--- NOTE | 2019-02-19 15:05 | PN ---
PROGRESS NOTE DATE OF SERVICE: 02/19/2019 This is a 63-year-old woman admitted with chest pain, had an abnormal stress test, pharmacologically induced reversible ischemia is suspected in the Cardiolite stress test. No chest pain. No palpitations. No fever. PHYSICAL EXAM: Alert and oriented x3. Pulse 72, blood pressure 120/65, respirations 17, temperature 98.2, pulse ox 94% on room air skin: HEENT: Conjunctivae normal. NECK: No jugular venous distension. CARDIOVASCULAR SYSTEM: S1, S2, muffled. RESPIRATION: Breath sounds diminished at the bases. No rhonchi. No crackles. ABDOMEN: Soft, nontender. LEGS: No edema, no swelling. NERVOUS SYSTEM: No focal deficits. LABS: CBC, BMP within normals. ASSESSMENT: 1. Chest pain, possible unstable angina. 2. Possible positive stress test. 3. Hypertension. 4. Hyperlipidemia. 5. History of fibromyalgia. 6. Social stressors. 7. Hypothyroid. 8. Chronic back pain. 9. History of cervical fusion. 10.History of anxiety, depression. 11.Obesity with body mass index 40.9. RECOMMENDATION: Recommend to continue current medications, symptomatic treatment. Otherwise closely with Cardiology. Possible cardiac cath. Guarded prognosis because of multiple complex medical issues. Further recommendations to follow. MMODL / IJN: [id number] /
== END 2019-02-19 14:10 | disposition home or self-care (01) ==
LOC: EC 13:03 → 1SOBS 15:00
PROVIDERS: ADMIT Internal Medicine; ATTEND Internal Medicine
DX: R07.89 Other chest pain (principal); R61 Generalized hyperhidrosis; R51 Headache; R06.02 Shortness of breath; E78.5 Hyperlipidemia, unspecified; I10 Essential (primary) hypertension; M79.7 Fibromyalgia; E03.9 Hypothyroidism, unspecified; E66.9 Obesity, unspecified; F32.9 Major depressive disorder, single episode, unspecified; G89.29 Other chronic pain; M54.9 Dorsalgia, unspecified; Z68.41 Body mass index [BMI] 40.0-44.9, adult; Z79.1 Long term (current) use of non-steroidal anti-inflammatories (NSAID); Z79.890 Hormone replacement therapy; Z79.899 Other long term (current) drug therapy; Z98.1 Arthrodesis status; Z96.652 Presence of left artificial knee joint; Z90.710 Acquired absence of both cervix and uterus; Z88.0 Allergy status to penicillin; Z88.1 Allergy status to other antibiotic agents; Z80.49 Family history of malignant neoplasm of other genital organs; Z82.49 Family history of ischemic heart disease and other diseases of the circulatory system
CPT/HCPCS: 96360; 99285; 36415; 93005; 93017; 93306; 80061; 80053; 83735; 84484 ×2; 85025; 85610; 85730; 71046; 78452; G0378 ×2; A9500

== ENCOUNTER → 2019-03-30 | Outpatient (CLI) | payer OTHER ==
[2019-03-30 10:30] LABS: HCT 36.8 % (34.0-46.0); HGB 12.1 gm/dL (11.4-16.0); MCH 28.5 pg (25.0-35.0); MCHC 32.9 g/dL (31.0-37.0); MCV 86.8 fL (80.0-100.0); Mean Platelet Volume 6.8; Platelet Count 349 k/uL (150-450); RBC 4.24 m/uL (3.80-5.40); RDW 13.7 % (11.5-15.5); WBC 7.1 k/uL (3.8-10.6)
[2019-03-30 10:44] LABS: African American GFR (CKD) >90 (>60 ml/min/1.73 sqM); Anion Gap 7 mmol/L; Blood Urea Nitrogen 12 mg/dL (7-17); Carbon Dioxide 31 mmol/L (22-30); Chloride 102 mmol/L (98-107); Potassium 4.6 mmol/L (3.5-5.1); Sodium 140 mmol/L (137-145)
== END | disposition home or self-care (01) ==
LOC: LABPAT 09:35
PROVIDERS: ATTEND Internal Medicine Interventional Cardiology
DX: Z01.812 Encounter for preprocedural laboratory examination (principal); R94.39 Abnormal result of other cardiovascular function study
CPT/HCPCS: 36415; 80051; 82565; 84520; 85027

== ENCOUNTER 2019-04-07 11:46 | Day surgery (SDC) | payer OTHER ==
[2019-03-31 13:02] VITALS: BMI 41.5
[~2019-04-07 11:46] MED LIST changes: -ACETAMINOPHEN TAB 500 MG TAB PO ONE; +ALPRAZolam 0.25 MG TAB PO PRN; +ALPRAZolam 0.5 MG TAB PO PRN; +ASPIRIN 325 MG TAB PO STA; +ATORVASTATIN 80 MG TAB PO STA; -CLINDAMYCIN 900 MG in DEXTROSE 5% IN WATER 50 ML IVPB ONE; -DEXAMETHASONE SOD PHOSPHATE 10 MG/ML 1 ML VIAL IV ONE; -MELOXICAM 7.5 MG TAB PO ONE; -MIDAZOLAM 2 MG/2 ML VIAL IV PRN; +NITROGLYCERIN SL TABS 0.4 MG TAB SUBLINGUAL PRN; -ONDANSETRON 4 MG/2 ML VIAL IVP ONE; -SCOPOLAMINE 1.5MG/72HR PATCH TRANSDERM ONE; +SODIUM CHLORIDE 0.9% 1,000 ML in EMPTY BAG 1 BAG IV ONE; -TRANEXAMIC ACID 1,000 MG in SODIUM CHLORIDE 0.9% 50 ML IVPB ONE; -fentaNYL (PF) 50 MCG/ML 2 ML AMP IV PRN
[2019-04-07] MEDS ORDERED: IV FLUID CONTINUATION 1,000 ML IV ONE (14:52)
[2019-04-07] MEDS ORDERED: VERAPAMIL 2.5 MG/ML 2 ML AMP ONE (15:02)
[2019-04-07] MEDS ORDERED: HEPARIN SODIUM 1,000 UN/ML (10ML VL) ONE (15:02)
[2019-04-07] MEDS ORDERED: LIDOCAINE 1% INJ 10MG/ML (20 ML MDV) ONE (15:02)
[2019-04-07] MEDS ORDERED: MIDAZOLAM (PF) 2 MG/2 ML VIAL IVP ONE (15:21)
[2019-04-07] MEDS ORDERED: LIDOCAINE 1% INJ 10MG/ML (20 ML MDV) SQ ONE (15:23)
[2019-04-07] MEDS: VERAPAMIL SYRINGE (5 MG/10 ML) INTRAARTER ONE ×2 (15:25→15:33)
[2019-04-07] MEDS ORDERED: HEPARIN SODIUM 1,000 UN/ML (10ML VL) IV ONE (15:25)
[2019-04-07] MEDS ORDERED: IOPAMIDOL-370 125ML BTL INJ ONE (15:33)
[2019-04-07] MEDS ORDERED: RX INFO: IV CONTRAST WAS GIVEN 1 EACH MISC MISCELLANE PRN (15:54)
[2019-04-07] MEDS ORDERED: SODIUM CHLORIDE 0.9% 1,000 ML IV SCH (16:00)
--- NOTE | 2019-04-07 17:55 | CC ---
CARDIAC CATHETERIZATION REPORT DATE OF SERVICE: 04/07/2019 PERFORMING PHYSICIAN: Santos Garcia MD, Planimeter Operator. PROCEDURES PERFORMED: 1. Selective right and left coronary angiogram. 2. Left heart catheterization. INDICATION: This is a 64-year-old female patient with hypertension and dyslipidemia who was experiencing chest discomfort and underwent myocardial perfusion imaging stress test and that revealed reversible defect. Because of that, a heart catheterization was advised. APPROACH: Right radial artery. COMPLICATIONS: None. LEVEL OF SEDATION: Moderate, with sedation length of 13 minutes. PROCEDURE DESCRIPTION: After obtaining informed consent, the patient was brought to the cardiac bundle tier and labeler. The right radial artery was cannulated using micropuncture technique. The micropuncture wire passed easily. Then I placed a 5-Faroese sheath in the right radial artery. After that I gave the patient 2 mg of verapamil IA and 8000 units of heparin IV. Selective right and left coronary angiogram was performed using JR4 and JL3.5 catheters. After that I did left heart catheterization using the JR4 catheter which flipped into the LV, then I pulled back across the aortic valve. The procedure was completed without any complication. SELECTIVE CORONARY ANGIOGRAM: 1. The right coronary artery is a large-caliber vessel and it is a dominant vessel and appears to be angiographically normal. 2. The left main is angiographically normal. It bifurcates into left circumflex and left anterior descending artery. 3. The left circumflex is a large-caliber vessel. It is a nondominant vessel and appeared to be angiographically normal. It gives rise in the proximal portion to a large OM branch which ramus intermedius and second OM branch which appeared to be angiographically normal. 4. The LAD is angiographically normal. It gives rise in the proximal to mid portion to a diagonal branch which seems to be normal. HEMODYNAMICS: The left ventricular end-diastolic pressure was about 10 mmHg without significant gradient across the aortic valve. CONCLUSION: 1. Normal coronary angiogram. 2. Normal left ventricular end-diastolic pressure. POST-PROCEDURE MANAGEMENT: 1. Medical treatment. 2. Follow up with the patient. MMJOSHL / SAMANTHAN: [id number] /
[2019-04-07 19:32] VITALS: BP 95/61; PULSE 61; RESP 16; TEMP 98
== END 2019-04-07 20:10 | disposition home or self-care (01) ==
LOC: CATHCVL 11:46 → 1SOBS 15:34 → CATHCVL 20:10
PROVIDERS: ATTEND Internal Medicine Interventional Cardiology
DX: R94.39 Abnormal result of other cardiovascular function study (principal); I10 Essential (primary) hypertension; E78.5 Hyperlipidemia, unspecified; Z82.49 Family history of ischemic heart disease and other diseases of the circulatory system; E03.9 Hypothyroidism, unspecified; Z79.890 Hormone replacement therapy; Z79.899 Other long term (current) drug therapy
CPT/HCPCS: 93458

== ENCOUNTER → 2019-04-09 | Outpatient (CLI) | payer OTHER ==
--- NOTE | 2019-04-09 09:50 | CT ---
EXAMINATION TYPE: CT brain w con DATE OF EXAM: 04/09/2019 COMPARISON: None HISTORY: Left sided headache, pain behind left eye, and dizziness x [address] DLP: 2348 mGycm Automated exposure control for dose reduction was used. CONTRAST: CT scan of the head is performed with IV Contrast, patient injected with 100 mL of Isovue M300. FINDINGS: There is no abnormal enhancing mass or midline shift identified. The ventricles and sulci are within normal limits in size. The globes are intact and the visualized sinuses are clear. IMPRESSION: Negative contrast enhanced head CT exam.
== END | disposition home or self-care (01) ==
LOC: RADCTMAIN 09:00
DX: R51 Headache (principal); Z88.0 Allergy status to penicillin; Z88.8 Allergy status to other drugs, medicaments and biological substances
CPT/HCPCS: 70460; Q9967

== ENCOUNTER → 2019-11-24 | Outpatient (CLI) | payer OTHER ==
--- NOTE | 2019-11-24 12:23 | CONS ---
CONSULTATION DATE OF SERVICE: 11/24/2019 A 64-year-old lady who has been evaluated [facility] the [facility] for possible obstructive sleep apnea-hypopnea syndrome. HISTORY OF PRESENT ILLNESS, SLEEP/WAKE EVALUATION: Patient had been diagnosed with obstructive sleep apnea about 10 years ago in [facility]. She tried to use the CPAP but for different reason including insurance issues, the treatment was stopped. Presently, her sleep schedule is from 10 p.m. to 7:30 am. She does have problems with falling asleep, partially related to discomfort in her legs and restless leg symptoms. She snores and has episodes of stopped breathing during sleep according to her sister. She wakes up from sleep up to 4 times with nocturia, dry mouth, heartburn, episodes of gasping for air, restless leg, sweating. Patient also has episodes of choking during the sleep. In the morning, patient wakes up tired, has problems with memory, concentration, irritability, depression, anxiety. She worries about her sleep. Star Sleepiness Scale is 10. She may take one nap after noon, usually does not feel refreshed often and does not see the dreams during naps. No history of hypnagogic hallucinations, sleep paralysis or cataplexy. PAST MEDICAL HISTORY: Positive for hypertension, hyperlipidemia, acid reflux, hypothyroidism, low level of vitamin D. PAST SURGICAL HISTORY: Partial hysterectomy, neck fusion, total left knee replacement. MEDICATIONS: Fluticasone, Loratadine, lisinopril, aspirin, simvastatin, duloxetine, gabapentin, trazodone at bedtime to help falling asleep, pantoprazole, cholecalciferol, levothyroxine. SOCIAL HISTORY: Negative for smoking. Alcohol consumption rarely. FAMILY HISTORY: Hypertension, heart problems, hyperlipidemia, stroke, fibromyalgia, asthma, sinus problems. pneumonia, headaches, snoring, emphysema, bronchitis, thyroid problems, mental illness, restless legs. REVIEW OF SYSTEMS: Multiple awakenings from sleep, restless legs, and kicking at night, sleepiness during the day. PHYSICAL EXAM: lady without distress, BP 130/72, HR 68, RR 16, height 5 foot 5-1/2 inches, weight 259 pounds. Body mass index 42.4, temperature 98.3, oxygen saturation at room air 94% oropharynx slightly too low position of soft palate, Mallampati II to III. Short distance between soft palate and posterior pharyngeal wall. Sharp wide pillars, restriction of nasal breathing. Neck 15-3/4 inches in circumference. ABDOMEN: Slightly obese. LUNGS: Clear to percussion and to auscultation. Good air exchange. No wheezing or rhonchi. HEART: S1, S2 regular. No murmurs, gallops, or rubs. EXTREMITIES: No clubbing or cyanosis. COLLECTION SYSTEMS TECHNICIAN: Awake, alert, and oriented X3. Cranial nerves 2 to 7 intact. There is no fasciculation or atrophy. noted. No focal deficits observed. IMPRESSION: 1. Snoring, witnessed episodes of stopped breathing during the sleep, a small oropharyngeal air space restriction of nasal breathing, multiple awakenings from sleep, sleepiness, history of obstructive sleep apnea in the past, obstructive sleep apnea-hypopnea syndrome. 2. Obesity, body mass index 42.4. 3. Hypertension. 4. Restless legs. 5. Possible periodic limb movements. 6. Hyperlipidemia. 7. Acid reflux. 8. Hypothyroidism. 9. Low vitamin D level on vitamin D replacement pills. 10.Allergies. 11.Status post partial hysterectomy. 12.Status post neck fusion. 13.Status post total left knee replacement. PLAN: 1. Polysomnography for evaluation of patient's breathing during sleep. 2. CPAP/BiPAP titration if sleep study confirms obstructive sleep apnea-hypopnea syndrome. 3. Preferable position during sleep on the side. 4. No driving if patient feels any sleepiness. 5. I will see patient for follow up visit to explain results of testing and following plan. Thank you very much for referring this patient for consultation. Sincerely, Aakash Ramirez MD, PhD, FAASM Diplomat of [employer] [place] [employer] [place] [employer] Word Processing Operator of [facility] [place] MMODL / IJN: [id number] /
== END | disposition home or self-care (01) ==
LOC: SLEEP 10:06
PROVIDERS: ATTEND Internal Medicine
DX: R06.83 Snoring (principal); E66.9 Obesity, unspecified; Z68.41 Body mass index [BMI] 40.0-44.9, adult; I10 Essential (primary) hypertension; G25.81 Restless legs syndrome; E78.5 Hyperlipidemia, unspecified; K21.9 Gastro-esophageal reflux disease without esophagitis; E03.9 Hypothyroidism, unspecified; T78.40XA Allergy, unspecified, initial encounter; Z90.711 Acquired absence of uterus with remaining cervical stump; Z98.1 Arthrodesis status; Z96.652 Presence of left artificial knee joint; Z79.82 Long term (current) use of aspirin; Z79.899 Other long term (current) drug therapy
CPT/HCPCS: 99211

== ENCOUNTER → 2020-07-20 | Outpatient (CLI) | payer OTHER ==
--- NOTE | 2020-07-20 16:06 | US ---
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 Cyst seen on outside MRI EXAM MEASUREMENTS: Right Kidney: 9.3 x 5.0 x 4.5 cm Left Kidney: 10.8 x 4.7 x 4.5 cm Right Kidney: Cyst lower/lateral= 2.2 x 1.7 x 1.7 cm/ cyst upper pole= 1.1 x 0.8 x 1.0 cm evaluation somewhat limited due to technical features. Left Kidney: wnl Bladder: wnl Bilateral Jets seen: Yes There is no evidence for hydronephrosis at this point in time. No nephrolithiasis is seen. No bebe s are identified. The urinary bladder is anechoic. Bilateral ureteral jets are seen. Cortical medul felecia differentiation is maintained. IMPRESSION: Probable simple cysts right kidney, consider follow-up
== END | disposition home or self-care (01) ==
LOC: RADUSWWP 15:29
DX: Q61.8 Other cystic kidney diseases (principal)
CPT/HCPCS: 76770

== ENCOUNTER 2020-09-22 14:18 | Emergency (ER) | payer OTHER, MEDICARE ==
[2020-09-22 14:39] VITALS: RESP 18; TEMP 98.2
[2020-09-22] MEDS ORDERED: SODIUM CHLORIDE 0.9% 500 ML 500 ML IV STA (15:06)
[2020-09-22] MEDS ORDERED: MORPHINE SULFATE 4 MG/ML SYRINGE IV STA (15:06)
--- NOTE | 2020-09-22 15:26 | XR ---
EXAMINATION TYPE: XR KUB DATE OF EXAM: 09/22/2020 3:22 PM CLINICAL HISTORY: Left lower quadrant pain TECHNIQUE: Two Upright KUB images of the abdomen are obtained. COMPARISON: CT abdomen and pelvis October 08, 2018. FINDINGS: Gas seen in nondistended stomach. Scattered gas is seen in non-distended small bowel loops. Gas and fecal material is seen in non-distended colon. There is no visceromegaly, pneumoperitoneum, or abnormal calcification appreciated. The lung bases are clear and the osseous structures are intact . IMPRESSION: Overall nonobstructive bowel gas pattern.
[2020-09-22 15:27] LABS: Appearance,Urine Clear (Clear); Bacteria,Urine Rare /hpf; Bilirubin,Urine Negative (Negative); Blood,Urine Negative (Negative); Color,Urine Yellow; Glucose,Urine (UA) Negative (Negative); Hyaline Casts,Urine 1 /lpf (0-2); Ketones,Urine Negative (Negative); Leukocyte Esterase,Urine Large (Negative); Mucus,Urine Few /hpf; Nitrite,Urine Negative (Negative); Protein,Urine Negative (Negative); RBC,Urine 2 /hpf (0-5); Specific Gravity,Urine 1.018 (1.001-1.035); Squamous Epithelial Cell,Urine 2 /hpf (0-4); Urobilinogen,Urine <2.0 mg/dL (<2.0); WBC,Urine 6 /hpf (0-5)
[2020-09-22 15:31] LABS: Basophils % (A) 0 %; Eosinophils # (A) 0.1 k/uL (0-0.7); Eosinophils % (A) 1 %; HCT 39.7 % (34.0-46.0); HGB 12.5 gm/dL (11.4-16.0); Lymphocytes # (A) 2.2 k/uL (1.0-4.8); Lymphocytes % (A) 36 %; MCH 27.4 pg (25.0-35.0); MCHC 31.5 g/dL (31.0-37.0); MCV 87.1 fL (80.0-100.0); Mean Platelet Volume 7.1; Monocytes # (A) 0.4 k/uL (0-1.0); Monocytes % (A) 6 %; Neutrophils # (A) 3.2 k/uL (1.3-7.7); Neutrophils % (A) 53 %; Platelet Count 312 k/uL (150-450); RBC 4.55 m/uL (3.80-5.40); RDW 14.3 % (11.5-15.5)
--- NOTE | 2020-09-22 16:05 | ED ---
General Adult HPI - General Chief complaint: Abdominal Pain Stated complaint: abd & back pain Time Seen by Provider: 09/22/20 15:01 Source: patient, RN notes reviewed, old records reviewed Mode of arrival: ambulatory Limitations: no limitations - History of Present Illness Initial comments: 64-year-old female with left-sided abdominal pain, left flank pain. Patient states she's had some constipation. She denies dysuria or hematuria. She denies vomiting. She denies fever. Pain is moderate to severe. No previous history of abdominal surgeries according to the patient. No right-sided abdominal pain. - Related Data Home Medications Medication Instructions Recorded Confirmed Levothyroxine Sodium [Synthroid] 100 mcg PO DAILY 03/04/18 09/22/20 Loratadine [Claritin] 10 mg PO DAILY 03/04/18 09/22/20 lisinopriL [Zestril] 20 mg PO DAILY 03/04/18 09/22/20 Cholecalciferol [Vitamin D3 (25 1,000 unit PO DAILY 02/18/19 09/22/20 Mcg = 1000 Iu)] Fluticasone Nasal [place] [Flonase 1 spray EA NOSTRIL DAILY 02/18/19 09/22/20 Nasal [place]] Wilkinson-3 Fatty Acids/Fish Oil [Fish 1,000 mg PO DAILY 02/18/19 09/22/20 Oil 1,000 mg Softgel] Pantoprazole [Protonix] 40 mg PO DAILY 02/18/19 09/22/20 Metoprolol Succinate [Toprol XL] 25 mg PO DAILY 03/31/19 09/22/20 Aspirin [Adult Low Dose Aspirin EC] 81 mg PO DAILY 04/02/19 09/22/20 Albuterol Inhaler [Ventolin Hfa 2 puff INHALATION RT-QID PRN 09/22/20 09/22/20 Inhaler] Calcium Carbonate 500 mg PO BID 09/22/20 09/22/20 Cyclobenzaprine [Flexeril] 5 mg PO TID PRN 09/22/20 09/22/20 DULoxetine HCL [Cymbalta] 60 mg PO BID 09/22/20 09/22/20 Diclofenac Sodium [Voltaren Gel] 1 applic TOPICAL BID PRN 09/22/20 09/22/20 Ferrous Sulfate [Feosol] 325 mg PO BID 09/22/20 09/22/20 Gabapentin 600 mg PO TID 09/22/20 09/22/20 Lidocaine 5% Patch [Lidoderm] 1 patch TOPICAL DAILY PRN 09/22/20 09/22/20 Simvastatin 40 mg PO HS 09/22/20 09/22/20 Sodium Chloride 0.65% Nasal [Deep 2 spray EA NOSTRIL HS 09/22/20 09/22/20 Sea (Saline)] traZODone HCL 300 mg PO HS 09/22/20 09/22/20 Previous Rx's Medication Instructions Recorded Nitrofurantoin Monohyd/M-Cryst 100 mg PO Q12HR #20 cap 09/22/20 [Macrobid] Allergies Allergy/AdvReac Type Severity Reaction Status Date / Time Penicillins Allergy Rash/Hives/ Verified 09/22/20 16:26 Swelling Tetracyclines Allergy Rash/Hives/ Verified 09/22/20 16:26 Swelling Review of Systems ROS Statement: Those systems with pertinent positive or pertinent negative responses have been documented in the HPI. ROS Other: All systems not noted in ROS Statement are negative. Past Medical History Past Medical History: Fibromyalgia, Hyperlipidemia, Hypertension, Thyroid Disorder Additional Past Medical History / Comment(s): Chronic back pain. hypothyroid. History of Any Multi-Drug Resistant Organisms: None Reported Past Surgical History: Hysterectomy Additional Past Surgical History / Comment(s): cervical fusion Oct 2017, left total knee replacement. Past Anesthesia/Blood Transfusion Reactions: No Reported Reaction Past Psychological History: Anxiety, Depression Smoking Status: Never smoker Past Alcohol Use History: None Reported Past Drug Use History: None Reported - Past Family History Mother Sister(s) Family Medical History: Cancer Additional Family Medical History / Comment(s): breast,uterine,cervical Brother(s) Family Medical History: Cancer Sister(s) Family Medical History: Cancer General Exam Limitations: no limitations General appearance: alert, in no apparent distress Head exam: Present: atraumatic, normocephalic Eye exam: Present: normal appearance, PERRL ENT exam: Present: normal exam Neck exam: Present: normal inspection. Absent: tenderness, meningismus Respiratory exam: Present: normal lung sounds bilaterally. Absent: respiratory distress, wheezes Cardiovascular Exam: Present: regular rate, normal rhythm GI/Abdominal exam: Present: soft, tenderness (Left upper and lower tenderness palpation). Absent: distended, guarding, rebound Extremities exam: Present: normal inspection, normal capillary refill. Absent: pedal edema Neurological exam: Present: alert, oriented X3, CN II-XII intact. Absent: motor sensory deficit Psychiatric exam: Present: normal affect, normal mood Skin exam: Present: warm, dry, intact. Absent: cyanosis, diaphoretic Course Vital Signs 09/22/20 14:36 Temperature 98.2 F Pulse Rate 76 Respiratory 18 Rate Blood Pressure 125/57 O2 Sat by Pulse 98 Oximetry Medical Decision Making - Medical Decision Making 64-year-old female with left-sided abdominal pain. Patient well-appearing with stable vitals. Workup initiated, normal CBC, normal CMP, mild hematuria 6 red cells in the urine and rare bacteria, culture will be obtained. X-ray negative for obstruction or intraperitoneal free air. Did perform CT without contrast, this is negative for kidney stone, negative for hydronephrosis, shows a moderate stool burden but no acute process. Patient feeling better on reevaluation. She will have a trial of magnesium citrate as well as will be treated for possible UTI she does report some dysuria. - Lab Data Result diagrams: 09/22/20 15:07 09/22/20 15:41 Lab Results 09/22/20 09/22/20 09/22/20 Range/Units 15:07 15:07 15:41 WBC 6.0 (3.8-10.6) k/uL RBC 4.55 (3.80-5.40) m/uL Hgb 12.5 (11.4-16.0) gm/dL Hct 39.7 (34.0-46.0) % MCV 87.1 (80.0-100.0) fL MCH 27.4 (25.0-35.0) pg MCHC 31.5 (31.0-37.0) g/dL RDW 14.3 (11.5-15.5) % Plt Count 312 (150-450) k/uL MPV 7.1 Neutrophils % 53 % Lymphocytes % 36 % Monocytes % 6 % Eosinophils % 1 % Basophils % 0 % Neutrophils # 3.2 (1.3-7.7) k/uL Lymphocytes # 2.2 (1.0-4.8) k/uL Monocytes # 0.4 (0-1.0) k/uL Eosinophils # 0.1 (0-0.7) k/uL Basophils # 0.0 (0-0.2) k/uL Sodium 139 (137-145) mmol/L Potassium 4.0 (3.5-5.1) mmol/L Chloride 104 (98-107) mmol/L Carbon Dioxide 32 H (22-30) mmol/L Anion Gap 3 mmol/L BUN 10 (7-17) mg/dL Creatinine 0.78 (0.52-1.04) mg/dL Est GFR (CKD-EPI)AfAm >90 (>60 ml/min/1.73 sqM) Est GFR (CKD-EPI)NonAf 82 (>60 ml/min/1.73 sqM) Glucose 92 (74-99) mg/dL Plasma Lactic Acid Donnell (0.7-2.0) mmol/L Calcium 9.1 (8.4-10.2) mg/dL Total Bilirubin 0.4 (0.2-1.3) mg/dL AST 26 (14-36) U/L ALT 18 (4-34) U/L Alkaline Phosphatase 63 (38-126) U/L Total Protein 6.7 (6.3-8.2) g/dL Albumin 3.9 (3.5-5.0) g/dL Amylase 37 (30-110) U/L Lipase 84 (23-300) U/L Urine Color Yellow Urine Appearance Clear (Clear) Urine pH 6.0 (5.0-8.0) Ur Specific [place] 1.018 (1.001-1.035) Urine Protein Negative (Negative) Urine Glucose (UA) Negative (Negative) Urine Ketones Negative (Negative) Urine Blood Negative (Negative) Urine Nitrite Negative (Negative) Urine Bilirubin Negative (Negative) Urine Urobilinogen <2.0 (<2.0) mg/dL Ur Leukocyte Esterase Large H (Negative) Urine RBC 2 (0-5) /hpf Urine WBC 6 H (0-5) /hpf Ur Squamous Epith Cells 2 (0-4) /hpf Urine Bacteria Rare H (None) /hpf Hyaline Casts 1 (0-2) /lpf Urine Mucus Few H (None) /hpf 09/22/20 Range/Units 15:41 WBC (3.8-10.6) k/uL RBC (3.80-5.40) m/uL Hgb (11.4-16.0) gm/dL Hct (34.0-46.0) % MCV (80.0-100.0) fL MCH (25.0-35.0) pg MCHC (31.0-37.0) g/dL RDW (11.5-15.5) % Plt Count (150-450) k/uL MPV Neutrophils % % Lymphocytes % % Monocytes % % Eosinophils % % Basophils % % Neutrophils # (1.3-7.7) k/uL Lymphocytes # (1.0-4.8) k/uL Monocytes # (0-1.0) k/uL Eosinophils # (0-0.7) k/uL Basophils # (0-0.2) k/uL Sodium (137-145) mmol/L Potassium (3.5-5.1) mmol/L Chloride (98-107) mmol/L Carbon Dioxide (22-30) mmol/L Anion Gap mmol/L BUN (7-17) mg/dL Creatinine (0.52-1.04) mg/dL Est GFR (CKD-EPI)AfAm (>60 ml/min/1.73 sqM) Est GFR (CKD-EPI)NonAf (>60 ml/min/1.73 sqM) Glucose (74-99) mg/dL Plasma Lactic Acid Donnell 0.9 (0.7-2.0) mmol/L Calcium (8.4-10.2) mg/dL Total Bilirubin (0.2-1.3) mg/dL AST (14-36) U/L ALT (4-34) U/L Alkaline Phosphatase (38-126) U/L Total Protein (6.3-8.2) g/dL Albumin (3.5-5.0) g/dL Amylase (30-110) U/L Lipase (23-300) U/L Urine Color Urine Appearance (Clear) Urine pH (5.0-8.0) Ur Specific [place] (1.001-1.035) Urine Protein (Negative) Urine Glucose (UA) (Negative) Urine Ketones (Negative) Urine Blood (Negative) Urine Nitrite (Negative) Urine Bilirubin (Negative) Urine Urobilinogen (<2.0) mg/dL Ur Leukocyte Esterase (Negative) Urine RBC (0-5) /hpf Urine WBC (0-5) /hpf Ur Squamous Epith Cells (0-4) /hpf Urine Bacteria (None) /hpf Hyaline Casts (0-2) /lpf Urine Mucus (None) /hpf Disposition Clinical Impression: Abdominal pain, UTI (urinary tract infection) Disposition: HOME SELF-CARE Condition: Good Instructions (If sedation given, give patient instructions): Abdominal Pain (ED) Prescriptions: Nitrofurantoin Monohyd/M-Cryst [Macrobid] 100 mg PO Q12HR #20 cap Is patient prescribed a controlled substance at d/c from ED?: No Referrals: [facility],Clinic [Primary Care Provider] - 1-2 days Time of Disposition: 17:14
[2020-09-22 16:09] LABS: ALT 18 U/L (4-34); AST 26 U/L (14-36); African American GFR (CKD) >90 (>60 ml/min/1.73 sqM); Albumin 3.9 g/dL (3.5-5.0); Alkaline Phosphatase 63 U/L (38-126); Amylase 37 U/L (30-110); Anion Gap 3 mmol/L; Blood Urea Nitrogen 10 mg/dL (7-17); Calcium 9.1 mg/dL (8.4-10.2); Carbon Dioxide 32 mmol/L (22-30); Chloride 104 mmol/L (98-107); Glucose 92 mg/dL (74-99); Lipase 84 U/L (23-300); Non-African American GFR(CKD) 82 (>60 ml/min/1.73 sqM); Sodium 139 mmol/L (137-145); Total Bilirubin 0.4 mg/dL (0.2-1.3); Total Protein 6.7 g/dL (6.3-8.2)
--- NOTE | 2020-09-22 16:55 | CT ---
EXAMINATION TYPE: CT abdomen pelvis wo con DATE OF EXAM: 09/22/2020 COMPARISON: 10/08/2018 HISTORY: Left flank pain. CT DLP: 1211.4 mGycm Automated exposure control for dose reduction was used. The lung bases are clear. There is no pleural effusion. There is no pericardial effusion. Liver and spleen appear normal. Bile ducts are not dilated. Stomach is intact. Gallbladder appears no rmal. There is no evidence of pancreatic mass. There is no adrenal mass. Kidneys have normal size. There is no hydronephrosis. There is 3 cm exophyt ic cortical cyst lower pole right kidney. There is no retroperitoneal adenopathy. Bladder distends smoothly. There is no inguinal hernia. There is hysterectomy. There is no mesenteric edema. There is no ascites or free air. There is no evidence of bowel obstruct ion. Appendix is posterior and appears normal. There is no sign of a pelvic mass. The lumbar vertebra have normal alignment. There is no compression fracture. There is vacuum disc and disc space narrowing at L4-5. The bony pelvis is intact. The hip joints are intact. IMPRESSION: Normal appendix. No sign of acute abdomen and pelvis. No adverse change compared to old exam.
[2020-09-22] MEDS ORDERED: MAGNESIUM CITRATE 296 ML BOTTLE PO ONE (17:12)
[2020-09-22 17:28] VITALS: BP 127/67; PULSE 67
== END 2020-09-22 17:28 | disposition home or self-care (01) ==
LOC: EC 14:18
DX: N39.0 Urinary tract infection, site not specified (principal); F41.9 Anxiety disorder, unspecified; F32.9 Major depressive disorder, single episode, unspecified; E78.5 Hyperlipidemia, unspecified; I10 Essential (primary) hypertension; E03.9 Hypothyroidism, unspecified; Z79.82 Long term (current) use of aspirin; Z79.890 Hormone replacement therapy; Z79.899 Other long term (current) drug therapy; Z88.0 Allergy status to penicillin; Z88.1 Allergy status to other antibiotic agents; Z90.710 Acquired absence of both cervix and uterus; Z98.1 Arthrodesis status; Z96.652 Presence of left artificial knee joint
CPT/HCPCS: 36415; 80053; 82150; 83605; 83690; 85025; 81001; 74018; 74176; 99285; 96374; 96361; J2270

== ENCOUNTER 2020-11-06 09:38 | Day surgery (SDC) | payer MEDICARE, OTHER ==
[2020-11-02 10:42] VITALS: BMI 43.2
[~2020-11-06 09:38] MED LIST changes: -ALPRAZolam 0.25 MG TAB PO PRN; -ALPRAZolam 0.5 MG TAB PO PRN; -ASPIRIN 325 MG TAB PO STA; -ATORVASTATIN 80 MG TAB PO STA; +LACTATED RINGERS 1,000 ML IV SCH; +LIDOCAINE 1% (10MG/ML) FOR IV START INTRADERMA PRN; -NITROGLYCERIN SL TABS 0.4 MG TAB SUBLINGUAL PRN; -SODIUM CHLORIDE 0.9% 1,000 ML in EMPTY BAG 1 BAG IV ONE
[2020-11-06 10:13] VITALS: TEMP 97.4
[2020-11-06] MEDS ORDERED: fentaNYL (PF) 50 MCG/ML 2 ML AMP ONE (10:36)
[2020-11-06] MEDS ORDERED: LIDOCAINE 1% INJ 10MG/ML (20 ML MDV) ONE (10:36)
[2020-11-06] MEDS ORDERED: PROPOFOL 10 MG/ML 20 ML VIAL IV ONE (10:36)
--- NOTE | 2020-11-06 11:17 | P.PCN ---
Date of Procedure: 11/06/20 Description of Procedure: BRIEF HISTORY: Patient is a 65-year-old female presenting for outpatient colonoscopy for screening for malignant neoplasm of the colon. She believes her last colonoscopy was 3-4 years ago. Denies any change in bowel habits or blood per rectum. No family history of colon cancer. PROCEDURE PERFORMED: Colonoscopy with polypectomy. PREOPERATIVE DIAGNOSIS: Screening from the neoplasm of the colon, patient reports last colonoscopy was 3-4 years ago with polypectomy at that time. ESTIMATED BLOOD LOSS: Minimal. IV sedation per Anesthesia. PROCEDURE: After informed consent was obtained, the patient, was brought into the endoscopy unit. IV sedation was administered by Anesthesia under continuous monitoring. Digital rectal examination was normal. Initially the Olympus CF-190 flexible video colonoscope was then inserted in the rectum, gradually advanced into the cecum without any difficulty. Careful examination was performed as the scope was gradually being withdrawn. Ileocecal valve and the appendiceal orifice were visualized and appeared normal. Prep was excellent. Mucosa of the cecum, ascending colon, transverse colon, descending colon, sigmoid colon, and rectum appeared normal. 2 diminutive polyps measuring 1-2 mm in size removed from the ascending colon and hepatic flexure with cold forcep polypectomy. Retroflexion was performed in the rectum and no lesions were seen. The patient tolerated the procedure well. IMPRESSION: 2 diminutive polyps removed with forcep polypectomy from the ascending colon and hepatic flexure. Otherwise normal appearing colon. RECOMMENDATIONS: Findings of this examination were discussed with the patient and her family. Okay to resume diet. Okay to resume medications. Await pathology from polypectomies. Recommend repeat colonoscopy in 5 years given patient's history of colon polyps.
[2020-11-06 11:35] VITALS: BP 123/74; PULSE 75; RESP 16
== END 2020-11-06 11:55 | disposition home or self-care (01) ==
LOC: ORWHC2ENDO 09:38
PROVIDERS: ATTEND Internal Medicine
DX: Z12.11 Encounter for screening for malignant neoplasm of colon (principal); D12.2 Benign neoplasm of ascending colon; D12.3 Benign neoplasm of transverse colon; I10 Essential (primary) hypertension; E78.5 Hyperlipidemia, unspecified; J45.909 Unspecified asthma, uncomplicated; G47.00 Insomnia, unspecified; K21.9 Gastro-esophageal reflux disease without esophagitis; Z79.899 Other long term (current) drug therapy; Z88.0 Allergy status to penicillin; Z88.1 Allergy status to other antibiotic agents; Z90.710 Acquired absence of both cervix and uterus; Z98.51 Tubal ligation status; Z96.652 Presence of left artificial knee joint; Z98.890 Other specified postprocedural states
CPT/HCPCS: 88305; 45380; J2001; J3010; J2704

== ENCOUNTER → 2021-01-09 | Outpatient (CLI) | payer OTHER | LOC: CPPFTMAIN 12:00 | DX: R06.02 Shortness of breath (principal) | CPT/HCPCS: 94060; 94726; 94729 ==

== ENCOUNTER → 2021-02-01 | Outpatient (CLI) | payer OTHER ==
--- NOTE | 2021-02-05 09:59 | MM ---
Reason for exam: screening (asymptomatic). Last mammogram was performed 2 years and 4 months ago. History: Family history of breast cancer in mother at age 68 and breast cancer in 2 sisters. Physical Findings: A clinical breast exam by your physician is recommended on an annual basis and results should be correlated with mammographic findings. MG Screening Mammo w CAD Bilateral CC and MLO view(s) were taken. Prior study comparison: October 06, 2018, bilateral MG screening mammo w CAD. September 30, 2017, bilateral MG screening mammo w CAD. There are scattered fibroglandular densities. ASSESSMENT: Benign, BI-RAD 2 RECOMMENDATION: Routine screening mammogram of both breasts in 1 year.
== END | disposition home or self-care (01) ==
LOC: RADMAMWWP 13:23
DX: Z12.31 Encounter for screening mammogram for malignant neoplasm of breast (principal); Z80.3 Family history of malignant neoplasm of breast
CPT/HCPCS: 77067

== ENCOUNTER → 2021-05-16 | Outpatient (CLI) | payer OTHER ==
--- NOTE | 2021-05-18 14:57 | MR ---
EXAMINATION TYPE: MR cervical spine wo con DATE OF EXAM: 05/16/2021 COMPARISON: MR cervical spine from outside institution 06/28/2020 HISTORY: Radiculopathy, cervical region, neck pain, renee x 10 years TECHNIQUE: Multiplanar, multisequence images of the cervical spine were acquired without contrast. C2-C3: No evidence for degenerative disc disease. No disc bulge/herniation or protrusion. No Canal stenosis. Foramina are patent bilaterally. C3-C4: No evidence for degenerative disc disease. No disc bulge/herniation or protrusion. No Canal stenosis. Foramina are patent bilaterally. C4-C5: Posterior extension of endplate disc complex shows a similar appearance, is mild anterior mass effect on the thecal sac. Uncovertebral joint hypertrophy encroaches minimally on the right neural f oramen. No significant spinal stenosis. C5-C6: Posterior extension endplate disc complex is present similar to prior exam, there is anterolat eral mass effect on the thecal sac greater on the left, there is left-sided foraminal encroachment si milar to prior exam. No central canal stenosis. C6-C7: Bilateral foraminal encroachment is present due to uncovertebral joint hypertrophy. No signifi cant spinal stenosis or evident disc herniation. C7-T1: No evidence for degenerative disc disease. No disc bulge/herniation or protrusion. No Canal stenosis. Foramina are patent bilaterally. There is stable alignment. Cervical spinal cord is remarkable for hyperintense signal on T2, low sig nal on T1 at the C6-7 level, stable finding, patient is status post anterior cervical fusion and disc ectomy at C5-C7. Craniovertebral junction relationships are within normal limits. IMPRESSION: Stable myelomalacia within the cord. Degenerative disc disease, foraminal encroachment. Postop change s. Similar findings to prior exam.
== END | disposition home or self-care (01) ==
LOC: RADMRIMAIN 09:32
PROVIDERS: ATTEND Physician Assistant
DX: G95.89 Other specified diseases of spinal cord (principal); M50.123 Cervical disc disorder at C6-C7 level with radiculopathy; M99.71 Connective tissue and disc stenosis of intervertebral foramina of cervical region
CPT/HCPCS: 72141

== ENCOUNTER → 2021-05-29 | Outpatient (CLI) | payer OTHER | END | disposition home or self-care (01) | LOC: LABWHC1 12:17 | PROVIDERS: ATTEND Psychiatry & Neurology Pain Medicine | DX: H02.402 Unspecified ptosis of left eyelid (principal); H53.8 Other visual disturbances | CPT/HCPCS: 36415 ==

== ENCOUNTER → 2022-02-13 | Outpatient (CLI) | payer OTHER ==
--- NOTE | 2022-02-14 12:10 | MM ---
Reason for Exam: Screening (asymptomatic). Last mammogram was performed 1 year(s) and 1 month(s) ago. Patient History: Menarche at age 16. First Full-Term at age 24. Hysterectomy at age 40. Sister had breast cancer. Sister had breast cancer. Mother had breast cancer, age 68. Risk Values: Gracy 5 year model risk: 6.0%. NCI Lifetime model risk: 22.1%. Prior Study Comparison: 09/30/2017 Bilateral Screening Mammogram, [facility]. 10/06/2018 Bilateral Screening Mammogram, [facility]. 02/01/2021 Bilateral Screening Mammogram, [facility]. Tissue Density: There are scattered fibroglandular densities. Findings: Analyzed By CAD. A few scattered benign-appearing punctate calcifications bilaterally are redemonstrated. There is no suspicious group of microcalcifications or new suspicious mass in either breast. Overall Assessment: Benign, BI-RAD 2 Management: Screening Mammogram of both breasts in 1 year. A clinical breast exam by your physician is recommended on an annual basis and results should be correlated with mammographic findings. Electronically signed and approved by: Tray Sterling M.D.
== END | disposition home or self-care (01) ==
LOC: RADMAMWWP 08:49
DX: Z12.31 Encounter for screening mammogram for malignant neoplasm of breast (principal); Z80.3 Family history of malignant neoplasm of breast
CPT/HCPCS: 77067

== ENCOUNTER → 2022-03-01 | Outpatient (CLI) | payer OTHER ==
--- NOTE | 2022-03-01 12:50 | MR ---
EXAMINATION TYPE: MR knee RT wo con DATE OF EXAM: 03/01/2022 COMPARISON: none HISTORY: R knee pain TECHNIQUE: Multiplanar, multisequence imaging of the right knee is performed without IV contrast. FINDINGS: MEDIAL MENISCUS: Anterior and posterior horns are intact without tear. LATERAL MENISCUS: Anterior and posterior horns are intact without tear. CRUCIATE LIGAMENTS: The anterior and posterior cruciate ligaments are intact and unremarkable. COLLATERAL LIGAMENTS: The medial collateral ligament and lateral collateral ligament complex are inta ct and unremarkable. EXTENSOR MECHANISM: Visualized quadriceps and patellar tendons are intact. EFFUSION: No significant suprapatellar joint effusion. POPLITEAL CYST: 8 mm Hickman's cyst. TRICOMPARTMENT SPACES: Moderate narrowing medial tibiofemoral joint space. CARTILAGE: Cartilaginous thinning patellofemoral joint space and medial tibiofemoral joint space. BONE MARROW SIGNAL: No focal abnormal marrow signal is appreciated. OTHER: No additional significant abnormality is appreciated. IMPRESSION: 1. Degenerative changes of osteoarthritis as noted.
== END | disposition home or self-care (01) ==
LOC: RADMRIMAIN 11:13
PROVIDERS: ATTEND Orthopaedic Surgery
DX: M17.11 Unilateral primary osteoarthritis, right knee (principal)

== ENCOUNTER 2022-03-22 13:28 | Emergency (ER) | payer OTHER, MEDICARE ==
[2022-03-22 14:31] VITALS: BP 128/80; PULSE 77; RESP 16; TEMP 98.4
[2022-03-22] MEDS ORDERED: ALPRAZolam 0.25 MG TAB PO STA (15:58)
--- NOTE | 2022-03-22 16:01 | ED ---
Anxiety HPI - General Chief Complaint: Anxiety Stated Complaint: KRISTIE/Anxiety Time Seen by Provider: 03/22/22 15:50 Source: patient, RN notes reviewed, old records reviewed Mode of arrival: wheelchair - History of Present Illness Initial Comments: 67-year-old female presents tearful with complaints of anxiety for several months with shortness of breath. Patient states that she seen the [place] doctors and they have done cardiac and pulmonary workups and all normal. She states that she has been seeing through telemedicine her psychiatrist and was recently placed on Rexulti a month and half ago for her depression but she states it is not helping. She states that her symptoms are worse at night when she feels like she can't breathe. She states that she cannot get into her doctor again until the . She denies any homicidal or suicidal ideations. No chest pain, fevers, nausea or vomiting. She does have a history of asthma, hypertension, depression, anxiety and fibromyalgia. MD Complaint: anxiety, shortness of breath -: month(s) (2) Place: home Previous History of Same: Yes Quality: worsening, similar to prior episodes Improves With: nothing Associated symptoms: shortness of breath - Related Data Home Medications: Home Medications Medication Instructions Recorded Confirmed Levothyroxine Sodium [Synthroid] 100 mcg PO DAILY 03/04/18 11/06/20 Loratadine [Claritin] 10 mg PO DAILY 03/04/18 11/06/20 lisinopriL [Zestril] 20 mg PO DAILY 03/04/18 11/06/20 Cholecalciferol [Vitamin D3 (25 1,000 unit PO DAILY 02/18/19 11/06/20 Mcg = 1000 Iu)] Fluticasone Nasal [place] [Flonase 1 spray EA NOSTRIL DAILY 02/18/19 11/06/20 Nasal [place]] [place]-3 Fatty Acids/Fish Oil [Fish 1,000 mg PO DAILY 02/18/19 11/06/20 Oil 1,000 mg Softgel] Pantoprazole [Protonix] 40 mg PO DAILY 02/18/19 11/06/20 Metoprolol Succinate [Toprol XL] 25 mg PO DAILY 03/31/19 11/06/20 Aspirin [Adult Low Dose Aspirin EC] 81 mg PO DAILY 04/02/19 11/06/20 Albuterol Inhaler [Ventolin Hfa 2 puff INHALATION RT-QID PRN 09/22/20 11/06/20 Inhaler] Calcium Carbonate 500 mg PO BID 09/22/20 11/06/20 Cyclobenzaprine [Flexeril] 5 mg PO TID PRN 09/22/20 11/06/20 DULoxetine HCL [Cymbalta] 60 mg PO BID 09/22/20 11/06/20 Ferrous Sulfate [Feosol] 325 mg PO BID 09/22/20 11/06/20 Gabapentin 600 mg PO TID 09/22/20 11/06/20 Lidocaine 5% Patch [Lidoderm] 1 patch TOPICAL DAILY PRN 09/22/20 11/06/20 Simvastatin 40 mg PO HS 09/22/20 11/06/20 Sodium Chloride 0.65% Nasal [Deep 2 spray EA NOSTRIL HS PRN 09/22/20 11/06/20 Sea (Saline)] traZODone HCL 300 mg PO HS 09/22/20 11/06/20 Allergies/Adverse Reactions: Allergies Allergy/AdvReac Type Severity Reaction Status Date / Time Penicillins Allergy Rash/Hives/ Verified 03/22/22 14:29 Swelling Tetracyclines Allergy Dyspnea/asa Verified 03/22/22 14:29 h Review of Systems ROS Statement: Those systems with pertinent positive or pertinent negative responses have been documented in the HPI. ROS Other: All systems not noted in ROS Statement are negative. Past Medical History Past Medical History: Asthma, Chest Pain / Angina, Fibromyalgia, GERD/Reflux, Hyperlipidemia, Hypertension, Osteoarthritis (OA), Skin Disorder, Sleep Apnea/C PAP/BIPAP, Thyroid Disorder Additional Past Medical History / Comment(s): Chronic back pain. no cpap used currently, IBS, hx colitis, flaky spot on eyelid, History of Any Multi-Drug Resistant Organisms: None Reported Past Surgical History: Hysterectomy, Joint Replacement, Tubal Ligation Additional Past Surgical History / Comment(s): cervical fusion, left total knee replacement. Past Anesthesia/Blood Transfusion Reactions: No Reported Reaction Past Psychological History: Anxiety, Depression Smoking Status: Never smoker - Past Family History Mother Sister(s) Family Medical History: Cancer Additional Family Medical History / Comment(s): breast,uterine,cervical Brother(s) Family Medical History: Cancer Sister(s) Family Medical History: Cancer Mother Family Medical History: Cancer General Exam Limitations: no limitations General appearance: alert, in no apparent distress Head exam: Present: atraumatic Eye exam: Present: normal appearance. Absent: scleral icterus, conjunctival injection, periorbital swelling, periorbital tenderness ENT exam: Present: mucous membranes moist Neck exam: Present: full ROM. Absent: tenderness, meningismus Respiratory exam: Present: normal lung sounds bilaterally. Absent: respiratory distress, accessory muscle use Cardiovascular Exam: Present: regular rate, normal rhythm GI/Abdominal exam: Present: soft. Absent: distended, tenderness, rigid Extremities exam: Present: normal inspection, normal capillary refill. Absent: pedal edema Neurological exam: Present: alert, oriented X3 Psychiatric exam: Present: depressed, anxious (tearful). Absent: flat affect, manic, homicidal ideation, suicidal ideation Skin exam: Present: warm, dry, normal color. Absent: cyanosis, diaphoretic, petechiae, pallor Course Vital Signs 03/22/22 03/22/22 14:29 16:55 Temperature 98.4 F 98.4 F Pulse Rate 77 77 Respiratory 16 16 Rate Blood Pressure 128/80 128/80 O2 Sat by Pulse 96 96 Oximetry Medical Decision Making - Medical Decision Making Patient complains of anxiety for several years of anxiety and shortness of breath. She denies any homicidal or suicidal ideations. No chest pain, fevers, nausea or vomiting. She does have a history of depression and anxiety. Patient states that her symptoms have been ongoing for years and she is seeing a psychiatrist and was recently placed on Rexulti a month and half ago for her depression. She does have an appointment on April 08 with her psychiatrist. Patient has also had a cardiac catheterization in 2018, sleep study done in 2019, and pulmonary function tests December 2020 for her symptoms. I did explain that the Rexulti may help with her anxiety in addition to her depression but any dosing changes or new medications should be discussed with your doctor before making changes. She was directed to continue her previously prescribed medications. Return to the emergency room if any new or concerning symptoms including worsening difficulty breathing, chest pain or fevers. Call her primary care doctor and psychiatrist next week to discuss her symptoms. Patient is agreeable to this plan of care. Case discussed with Dr. Aguillon. Disposition Clinical Impression: Acute anxiety Disposition: HOME SELF-CARE Condition: Good Instructions (If sedation given, give patient instructions): Generalized Anxiety Disorder (ED) Additional Instructions: Continue taking your previously prescribed medications. Call your primary care doctor next week to discuss your symptoms. You're prescription for Rexulti may help with anxiety in addition to your depression but any dosing changes or new medications should be discussed with your doctor before making changes. Return to the emergency room if any new or concerning symptoms including worsening difficulty breathing, chest pain or fevers. Is patient prescribed a controlled substance at d/c from ED?: No [facility] [Primary Care Provider] - 1-2 days Time of Disposition: 16:18
== END 2022-03-22 16:56 | disposition home or self-care (01) ==
LOC: EC 13:28
DX: F41.9 Anxiety disorder, unspecified (principal); I10 Essential (primary) hypertension; J45.909 Unspecified asthma, uncomplicated; K21.9 Gastro-esophageal reflux disease without esophagitis; E78.5 Hyperlipidemia, unspecified; M79.7 Fibromyalgia; M19.90 Unspecified osteoarthritis, unspecified site; E07.9 Disorder of thyroid, unspecified; F32.A Depression, unspecified; Z79.82 Long term (current) use of aspirin; Z79.51 Long term (current) use of inhaled steroids; Z79.890 Hormone replacement therapy; Z79.899 Other long term (current) drug therapy
CPT/HCPCS: 99284

== ENCOUNTER → 2022-04-22 | Outpatient (CLI) | payer OTHER | END | disposition home or self-care (01) | LOC: LABWHC1 14:25 | PROVIDERS: ATTEND Orthopaedic Surgery | DX: Z01.812 Encounter for preprocedural laboratory examination (principal); Z22.322 Carrier or suspected carrier of Methicillin resistant Staphylococcus aureus; M17.11 Unilateral primary osteoarthritis, right knee | CPT/HCPCS: 87070 ==

== ENCOUNTER → 2023-04-30 | Outpatient (CLI) | payer OTHER ==
--- NOTE | 2023-05-01 08:04 | MM ---
Reason for Exam: Screening (asymptomatic). Last mammogram was performed 1 year(s) and 2 month(s) ago. Patient History: Menarche at age 16. First Full-Term at age 24. Hysterectomy at age 40. Postmenopausal. Patient has history of breast feeding. Sister had breast cancer under age 50. Sister had breast cancer at or over age 50. Mother had breast cancer, age 68. Risk Values: Gracy 5 year model risk: 6.2%. NCI Lifetime model risk: 20.7%. Prior Study Comparison: 08/19/2016 Bilateral Screening Mammogram, [facility]. 09/30/2017 Bilateral Screening Mammogram, [facility]. 10/06/2018 Bilateral Screening Mammogram, [facility]. 02/01/2021 Bilateral Screening Mammogram, [facility]. 02/13/2022 Bilateral MG screening mammo w CAD, [facility]. Tissue Density: There are scattered fibroglandular densities. Findings: Analyzed By CAD. There is no suspicious group of microcalcifications or new suspicious mass in either breast. Few scattered benign-appearing punctate calcifications bilaterally redemonstrated. Overall Assessment: Benign, BI-RAD 2 Management: Screening Mammogram of both breasts in 1 year. A clinical breast exam by your physician is recommended on an annual basis and results should be correlated with mammographic findings. Note on Gracy scores and lifetime risk: 1. A Gracy score greater than 3% is considered moderate risk. If this is the case, consider specialist referral to assess eligibility for a risk reducing agent. If overall lifetime risk for the development of breast cancer is 20% or higher, the patient may qualify for future screening with alternating mammogram and breast MRI. Electronically signed and approved by: Jake Collins D.O.
== END | disposition home or self-care (01) ==
LOC: RADMAMWWP 10:18
PROVIDERS: ATTEND Physician Assistant
DX: Z12.31 Encounter for screening mammogram for malignant neoplasm of breast (principal); Z78.0 Asymptomatic menopausal state; Z80.3 Family history of malignant neoplasm of breast
CPT/HCPCS: 77067

== ENCOUNTER 2023-09-07 20:18 | Emergency (ER) | payer OTHER ==
[2023-09-07 20:44] VITALS: RESP 18
[2023-09-07] MEDS ORDERED: SODIUM CHLORIDE 0.9% 1,000 ML IV STA (20:51)
[2023-09-07] MEDS ORDERED: ACETAMINOPHEN TAB 500 MG TAB PO STA (20:52)
[2023-09-07] MEDS ORDERED: MECLIZINE 12.5 MG TAB PO STA (20:52)
[2023-09-07 20:58] LABS: Glucose,Whole Blood 111 mg/dL (70-110)
[2023-09-07 21:12] LABS: Basophils % (A) 0 %; Eosinophils # (A) 0.1 k/uL (0-0.7); Eosinophils % (A) 1 %; HCT 37.2 % (34.0-46.0); HGB 12.5 gm/dL (11.4-16.0); Lymphocytes # (A) 0.8 k/uL (1.0-4.8); Lymphocytes % (A) 13 %; MCH 29.5 pg (25.0-35.0); MCHC 33.6 g/dL (31.0-37.0); MCV 87.6 fL (80.0-100.0); Mean Platelet Volume 7.8; Monocytes # (A) 0.6 k/uL (0-1.0); Monocytes % (A) 9 %; Neutrophils # (A) 4.7 k/uL (1.3-7.7); Neutrophils % (A) 75 %; Platelet Count 214 k/uL (150-450); RBC 4.24 m/uL (3.80-5.40); RDW 12.9 % (11.5-15.5); WBC 6.4 k/uL (3.8-10.6)
[2023-09-07 21:23] LABS: ALT 27 U/L (4-34); AST 35 U/L (14-36); African American GFR (CKD) >90 (>60 ml/min/1.73 sqM); Albumin 3.8 g/dL (3.5-5.0); Alkaline Phosphatase 81 U/L (38-126); Anion Gap 9 mmol/L; Blood Urea Nitrogen 11 mg/dL (7-17); Calcium 8.8 mg/dL (8.4-10.2); Carbon Dioxide 28 mmol/L (22-30); Chloride 97 mmol/L (98-107); Glucose 105 mg/dL (74-99); Magnesium 1.6 mg/dL (1.6-2.3); Non-African American GFR(CKD) 83 (>60 ml/min/1.73 sqM); Sodium 134 mmol/L (137-145); Total Bilirubin 0.4 mg/dL (0.2-1.3); Total Protein 6.4 g/dL (6.3-8.2)
[2023-09-07 21:36] LABS: INR 0.9 (<1.2); Partial Thromboplastin Time 23.7 sec (22.0-30.0); Prothrombin Time 9.9 sec (10.0-12.5)
--- NOTE | 2023-09-07 21:42 | ED ---
General Adult HPI - General Chief complaint: Weakness Stated complaint: Fall-dizziness Time Seen by Provider: 09/07/23 20:28 Source: patient, family, RN notes reviewed, old records reviewed Mode of arrival: wheelchair Limitations: no limitations - History of Present Illness Initial comments: Patient is a 68-year-old female who presents emergency Department complaining of weakness. Patient is also complaining of joint aches, body aches, upper respiratory infection symptoms including cough, congestion. LOW-grade fever. Has a history of chronic urinary issues. Had some intermittent lightheadedness is not on blood thinners. He did fall twice today prior to arrival. She did lightly hit her head on one of these episodes. States she feels lightheaded. No significant vertigo symptoms. Denies blurry vision or headache. No other acute complaints at this time. Presents for further evaluation of this time due to weakness, fatigue, lightheadedness as well. She endorses loss of appetite as well. Denies chest pain, abdominal pain, shortness of breath. - Related Data Home Medications Medication Instructions Recorded Confirmed Levothyroxine Sodium [Synthroid] 100 mcg PO QAM 03/04/18 04/24/22 Loratadine [Claritin] 10 mg PO DAILY 03/04/18 04/24/22 lisinopriL [Zestril] 20 mg PO QAM 03/04/18 04/24/22 Cholecalciferol [Vitamin D3 (25 25 mcg PO DAILY 02/18/19 04/24/22 Mcg = 1000 Iu)] Fluticasone Nasal [place] [Flonase 1 spray EA NOSTRIL DAILY 02/18/19 04/24/22 Nasal [place]] [place]-3 Fatty Acids/Fish Oil [Fish 1,000 mg PO DAILY 02/18/19 04/24/22 Oil 1,000 mg Softgel] Pantoprazole [Protonix] 40 mg PO QAM 02/18/19 04/24/22 Metoprolol Succinate [Toprol XL] 25 mg PO QAM 03/31/19 04/24/22 Aspirin [Adult Low Dose Aspirin EC] 81 mg PO DAILY 04/02/19 04/24/22 Albuterol Inhaler [Ventolin Hfa 2 puff INHALATION RT-QID PRN 09/22/20 04/24/22 Inhaler] Calcium Carbonate 500 mg PO BID 09/22/20 04/24/22 Cyclobenzaprine [Flexeril] 5 mg PO TID PRN 09/22/20 04/30/22 DULoxetine HCL [Cymbalta] 60 mg PO BID 09/22/20 04/24/22 Gabapentin 600 mg PO TID 09/22/20 04/24/22 Simvastatin [Zocor] 40 mg PO HS 09/22/20 04/30/22 traZODone HCL 300 mg PO HS 09/22/20 04/30/22 Previous Rx's Medication Instructions Recorded Apixaban [Eliquis] 2.5 mg PO BID #60 tab 05/02/22 Docusate [Colace] 100 mg PO DAILY #30 capsule 05/02/22 HYDROcodone/APAP 7.5-325MG [[place] 1 - 2 each PO Q6HR PRN #36 tab 05/02/22 7.5] Cephalexin [Keflex] 500 mg PO Q12HR 5 Days #10 cap 09/07/23 Allergies Allergy/AdvReac Type Severity Reaction Status Date / Time Penicillins Allergy Rash/Hives/Swelling,as Verified 09/07/23 20:24 a child Tetracyclines Allergy Dyspnea/asa Verified 09/07/23 20:24 h Review of Systems ROS Statement: Those systems with pertinent positive or pertinent negative responses have been documented in the HPI. Review of Systems: CONST: Denies fever EYES: Denies blurry vision ENT: Endorses nasal congestion C/V: Denies Chest pain RESP: Denies shortness of breath GI: Denies abdominal pain : Denies dysuria SKIN: Denies rash. MSK: Denies joint pain. NEURO: Denies headache ROS Other: All systems not noted in ROS Statement are negative. Past Medical History Past Medical History: Asthma, Chest Pain / Angina, Fibromyalgia, GERD/Reflux, Hyperlipidemia, Hypertension, Osteoarthritis (OA), Skin Disorder, Sleep Apnea/CPAP/BIPAP, Thyroid Disorder Additional Past Medical History / Comment(s): Chronic back pain. no cpap used currently, IBS, hx colitis, flaky spot on eyelid, History of Any Multi-Drug Resistant Organisms: None Reported Past Surgical History: Hysterectomy, Joint Replacement, Tubal Ligation Additional Past Surgical History / Comment(s): cervical fusion, left total knee replacement. Past Anesthesia/Blood Transfusion Reactions: No Reported Reaction Additional Past Anesthesia/Blood Transfusion Reaction / Comment(s): no hx blood transfusion Past Psychological History: Anxiety, Depression Smoking Status: Never smoker Past Alcohol Use History: None Reported Past Drug Use History: None Reported - Past Family History Mother Sister(s) Family Medical History: Cancer Additional Family Medical History / Comment(s): breast,uterine,cervical Brother(s) Family Medical History: Cancer Sister(s) Family Medical History: Cancer Mother Family Medical History: Cancer General Exam - General Exam Comments Initial Comments: General: Appears in no acute distress. Low-grade fever. HEAD: Normal with no signs of head trauma. Negative elias sign. Negative ra ccoon eyes. EYES: PERRLA, EOMI, conjunctiva normal, no discharge. Pupils are 3 mm and equal bilaterally. ENT: Hearing grossly intact, normal oropharynx. Dry mucous membranes. RESPIRATORY: Clear breath sounds bilaterally. No wheezes, rales, or rhonchi. C/V: Regular rate and rhythm. S1 and S2 auscultated, no edema, peripheral pulses 2+ and intact throughout ABD: Abd is soft, nontender, nondistended EXT: Normal range of motion, no obvious deformity SKIN: No rashes or lesions observed on exposed skin. NEURO: Alert and oriented x 4. Cranial nerves II-XII intact. No focal sensory or strength deficits. GCS of 15. Limitations: no limitations Course Vital Signs 09/07/23 09/07/23 20:20 22:21 Temperature 99.8 F H 97.9 F Pulse Rate 86 78 Respiratory 18 18 Rate Blood Pressure 127/68 136/68 O2 Sat by Pulse 91 L 94 L Oximetry Medical Decision Making - Medical Decision Making Was pt. sent in by a medical professional or institution (, PA, CIGARETTE BOOK MAKER, urgent care, hospital, or intermediate...) When possible be specific @ -No Did you speak to anyone other than the patient for history (EMS, parent, family, police, friend...)? What history was obtained from this source @ -No Did you review nursing and triage notes (agree or disagree)? Why? @ -I reviewed and agree with nursing and triage notes Were old charts reviewed (outside hosp., previous admission, EMS record, old EKG, old radiological studies, urgent care reports/EKG's, intermediate records)? Report findings @ -Old charts reviewed Differential Diagnosis (chest pain, altered mental status, abdominal pain women, abdominal pain men, vaginal bleeding, weakness, fever, dyspnea, syncope, headache, dizziness, GI bleed, back pain, seizure, CVA, palpatations, mental health, musculoskeletal)? @ -Differential Weakness: Hypoglycemia, shock, sepsis, hyponatremia, anemia, infection, PR, ETOH, adverse medicine reaction, overdose, stroke, this is not meant to be an all-inclusive list. EKG interpreted by me (3pts min.). @ -As above X-rays interpreted by me (1pt min.). @ -Chest x-ray reveals no evidence of acute cardio pulmonary process. Radiology does detect a possible pulmonary nodule in the right upper lobe. CT interpreted by me (1pt min.). @ -CT brain reveals no obvious acute intracranial process. U/S interpreted by me (1pt. min.). @ -None done What testing was considered but not performed or refused? (CT, X-rays, U/S, labs)? Why? @ -None What meds were considered but not given or refused? Why? @ -None Did you discuss the management of the patient with other professionals (professionals i.e. , PA, CIGARET[employer] BOOK MAKER, lab, RT, psych nurse, secondary social studies teacher, shuttle fitting supervisor, teacher, staff weapons officer, cyanide case hardener)? Give summary @ -No Was smoking cessation discussed for >3mins.? @ -No Was critical care preformed (if so, how long)? @ -No Were there social determinants of health that impacted care today? How? (Homelessness, low income, unemployed, alcoholism, drug addiction, transportation, low edu. Level, literacy, decrease access to med. care, penitentiary, rehab)? @ -No Was there de-escalation of care discussed even if they declined (Discuss DNR or withdrawal of care, Hospice)? DNR status @ -No What co-morbidities impacted this encounter? (DM, HTN, Smoking, COPD, CAD, Cancer, CVA, ARF, Chemo, Hep., AIDS, mental health diagnosis, sleep apnea, morbid obesity)? @ -None Was patient admitted / discharged? Hospital course, mention meds given and route, prescriptions, significant lab abnormalities, going to OR and other pertinent info. @ -Based on the patient's presentation and physical exam, presents emergency department for any lightheadedness, weakness, as well as upper respiratory illness symptoms. I'm concerned for possible infection such as Covid her UTI. We will obtain infectious labs, and discussed a CT brain and decided to obtain one due to the patient hitting her head as well as her having the dizziness spells. She was in agreement this plan. She'll be symptomatically treated with IV fluids, meclizine as well as Tylenol for low-grade fever. She was in agreement this plan. EKG showed no signs of ischemia.CT brain reveals no obvious acute intercurrent process, chest x-ray shows no evidence of acute infection. Possible pulmonary nodule in the right upper lobe. Patient's laboratory studies are remarkable for a positive COVID-19 test. Urinalysis could represent an early UTI. Remainder the labs within acceptable limits. On reevaluation, patient is feeling improved. He is able to ambulate without issue. Fever is improved. Vital signs are improved. I discussed results with patient. She'll be discharged home at this time. We discussed obtaining a pulse oximeter, as well as isolation for at least 5 days from symptom onset. First day was yesterday. I did offer antiviral medications which were declined. She'll follow-up with her PCP this week.Patient started on Keflex empirically for UTI. I instructed the patient to follow up with their PCP in the next 1-3 days. I explained that the patient should return to the emergency department if they experience any worsening symptoms. Strict return precautions were discussed with the patient. The patient expressed understanding of these instructions. I answered all questions that the patient had. The patient was discharged home in good condition with their prescriptions and follow up information. I did later call the patient, and update her regarding the chest x-ray findings a possible pulmonary nodule. She expressed understanding. I discussed with her over the phone regarding this possibility on chest x-ray and informed her that she should receive follow-up imaging in 2-3 months either chest x-ray or CT of the chest. She did express understanding. She'll follow up with her PCP regarding this. Undiagnosed new problem with uncertain prognosis? @ -No Drug Therapy requiring intensive monitoring for toxicity (Heparin, Nitro, Insulin, Cardizem)? @ -No Were any procedures done? @ -No Diagnosis/symptom? @ -UTI, dehydration, COVID-19 infection Acute, or Chronic, or Acute on Chronic? @ -Acute Uncomplicated (without systemic symptoms) or Complicated (systemic symptoms)? @ -complicated Side effects of treatment? @ -none Exacerbation, Progression, or Severe Exacerbation] @ -no Poses a threat to life or bodily function? @ -Unlikely Diagnosis/symptom? @ -Pulmonary nodule Acute, or Chronic, or Acute on Chronic? @ -Unknown Uncomplicated (without systemic symptoms) or Complicated (systemic symptoms)? @ -Uncomplicated Side effects of treatment? @ -none Exacerbation, Progression, or Severe Exacerbation] @ -no Poses a threat to life or bodily function? @ -Unknown - Lab Data Result diagrams: 09/07/23 20:58 09/07/23 20:58 Lab Results 09/07/23 09/07/23 09/07/23 Range/Units 20:56 20:58 20:58 WBC 6.4 (3.8-10.6) k/uL RBC 4.24 (3.80-5.40) m/uL Hgb 12.5 (11.4-16.0) gm/dL Hct 37.2 (34.0-46.0) % MCV 87.6 (80.0-100.0) fL MCH 29.5 (25.0-35.0) pg MCHC 33.6 (31.0-37.0) g/dL RDW 12.9 (11.5-15.5) % Plt Count 214 (150-450) k/uL MPV 7.8 Neutrophils % 75 % Lymphocytes % 13 % Monocytes % 9 % Eosinophils % 1 % Basophils % 0 % Neutrophils # 4.7 (1.3-7.7) k/uL Lymphocytes # 0.8 L (1.0-4.8) k/uL Monocytes # 0.6 (0-1.0) k/uL Eosinophils # 0.1 (0-0.7) k/uL Basophils # 0.0 (0-0.2) k/uL PT 9.9 L (10.0-12.5) sec INR 0.9 (<1.2) APTT 23.7 (22.0-30.0) sec Sodium (137-145) mmol/L Potassium (3.5-5.1) mmol/L Chloride (98-107) mmol/L Carbon Dioxide (22-30) mmol/L Anion Gap mmol/L BUN (7-17) mg/dL Creatinine (0.52-1.04) mg/dL Est GFR (CKD-EPI)AfAm (>60 ml/min/1.73 sqM) Est GFR (CKD-EPI)NonAf (>60 ml/min/1.73 sqM) Glucose (74-99) mg/dL POC Glucose (mg/dL) 111 H (70-110) mg/dL POC Glu Heavy Truck Technician ID Primo, Neeta Plasma Lactic Acid Donnell (0.7-2.0) mmol/L Calcium (8.4-10.2) mg/dL Magnesium (1.6-2.3) mg/dL Total Bilirubin (0.2-1.3) mg/dL AST (14-36) U/L ALT (4-34) U/L Alkaline Phosphatase (38-126) U/L Total Protein (6.3-8.2) g/dL Albumin (3.5-5.0) g/dL Urine Color Urine Appearance (Clear) Urine pH (5.0-8.0) Ur Specific [place] (1.001-1.035) Urine Protein (Negative) Urine Glucose (UA) (Negative) Urine Ketones (Negative) Urine Blood (Negative) Urine Nitrite (Negative) Urine Bilirubin (Negative) Urine Urobilinogen (<2.0) mg/dL Ur Leukocyte Esterase (Negative) Urine RBC (0-5) /hpf Urine WBC (0-5) /hpf Ur Squamous Epith Cells (0-4) /hpf Urine Bacteria (None) /hpf Urine Mucus (None) /hpf Influenza Type A (PCR) (Not Detectd) Influenza Type B (PCR) (Not Detectd) RSV (PCR) (Not Detectd) SARS-CoV-2 (PCR) (Not Detectd) 09/07/23 09/07/23 09/07/23 Range/Units 20:58 20:58 20:58 WBC (3.8-10.6) k/uL RBC (3.80-5.40) m/uL Hgb (11.4-16.0) gm/dL Hct (34.0-46.0) % MCV (80.0-100.0) fL MCH (25.0-35.0) pg MCHC (31.0-37.0) g/dL RDW (11.5-15.5) % Plt Count (150-450) k/uL MPV Neutrophils % % Lymphocytes % % Monocytes % % Eosinophils % % Basophils % % Neutrophils # (1.3-7.7) k/uL Lymphocytes # (1.0-4.8) k/uL Monocytes # (0-1.0) k/uL Eosinophils # (0-0.7) k/uL Basophils # (0-0.2) k/uL PT (10.0-12.5) sec INR (<1.2) APTT (22.0-30.0) sec Sodium 134 L (137-145) mmol/L Potassium 4.0 (3.5-5.1) mmol/L Chloride 97 L (98-107) mmol/L Carbon Dioxide 28 (22-30) mmol/L Anion Gap 9 mmol/L BUN 11 (7-17) mg/dL Creatinine 0.76 (0.52-1.04) mg/dL Est GFR (CKD-EPI)AfAm >90 (>60 ml/min/1.73 sqM) Est GFR (CKD-EPI)NonAf 83 (>60 ml/min/1.73 sqM) Glucose 105 H (74-99) mg/dL POC Glucose (mg/dL) (70-110) mg/dL POC Glu Heavy Truck Technician ID Plasma Lactic Acid Donnell 1.3 (0.7-2.0) mmol/L Calcium 8.8 (8.4-10.2) mg/dL Magnesium 1.6 (1.6-2.3) mg/dL Total Bilirubin 0.4 (0.2-1.3) mg/dL AST 35 (14-36) U/L ALT 27 (4-34) U/L Alkaline Phosphatase 81 (38-126) U/L Total Protein 6.4 (6.3-8.2) g/dL Albumin 3.8 (3.5-5.0) g/dL Urine Color Yellow Urine Appearance Clear (Clear) Urine pH 8.5 H (5.0-8.0) Ur Specific [place] 1.019 (1.001-1.035) Urine Protein Trace H (Negative) Urine Glucose (UA) Negative (Negative) Urine Ketones Negative (Negative) Urine Blood Negative (Negative) Urine Nitrite Negative (Negative) Urine Bilirubin Negative (Negative) Urine Urobilinogen <2.0 (<2.0) mg/dL Ur Leukocyte Esterase Large H (Negative) Urine RBC 4 (0-5) /hpf Urine WBC 22 H (0-5) /hpf Ur Squamous Epith Cells 3 (0-4) /hpf Urine Bacteria Rare H (None) /hpf Urine Mucus Occasional H (None) /hpf Influenza Type A (PCR) (Not Detectd) Influenza Type B (PCR) (Not Detectd) RSV (PCR) (Not Detectd) SARS-CoV-2 (PCR) (Not Detectd) 09/07/23 Range/Units 20:58 WBC (3.8-10.6) k/uL RBC (3.80-5.40) m/uL Hgb (11.4-16.0) gm/dL Hct (34.0-46.0) % MCV (80.0-100.0) fL MCH (25.0-35.0) pg MCHC (31.0-37.0) g/dL RDW (11.5-15.5) % Plt Count (150-450) k/uL MPV Neutrophils % % Lymphocytes % % Monocytes % % Eosinophils % % Basophils % % Neutrophils # (1.3-7.7) k/uL Lymphocytes # (1.0-4.8) k/uL Monocytes # (0-1.0) k/uL Eosinophils # (0-0.7) k/uL Basophils # (0-0.2) k/uL PT (10.0-12.5) sec INR (<1.2) APTT (22.0-30.0) sec Sodium (137-145) mmol/L Potassium (3.5-5.1) mmol/L Chloride (98-107) mmol/L Carbon Dioxide (22-30) mmol/L Anion Gap mmol/L BUN (7-17) mg/dL Creatinine (0.52-1.04) mg/dL Est GFR (CKD-EPI)AfAm (>60 ml/min/1.73 sqM) Est GFR (CKD-EPI)NonAf (>60 ml/min/1.73 sqM) Glucose (74-99) mg/dL POC Glucose (mg/dL) (70-110) mg/dL POC Glu Heavy Truck Technician ID Plasma Lactic Acid [place]nell (0.7-2.0) mmol/L Calcium (8.4-10.2) mg/dL Magnesium (1.6-2.3) mg/dL Total Bilirubin (0.2-1.3) mg/dL AST (14-36) U/L ALT (4-34) U/L Alkaline Phosphatase (38-126) U/L Total Protein (6.3-8.2) g/dL Albumin (3.5-5.0) g/dL Urine Color Urine Appearance (Clear) Urine pH (5.0-8.0) Ur Specific [place] (1.001-1.035) Urine Protein (Negative) Urine Glucose (UA) (Negative) Urine Ketones (Negative) Urine Blood (Negative) Urine Nitrite (Negative) Urine Bilirubin (Negative) Urine Urobilinogen (<2.0) mg/dL Ur Leukocyte Esterase (Negative) Urine RBC (0-5) /hpf Urine WBC (0-5) /hpf Ur Squamous Epith Cells (0-4) /hpf Urine Bacteria (None) /hpf Urine Mucus (None) /hpf Influenza Type A (PCR) Not Detected (Not Detectd) Influenza Type B (PCR) Not Detected (Not Detectd) RSV (PCR) Not Detected (Not Detectd) SARS-CoV-2 (PCR) Detected A (Not Detectd) - EKG Data -: EKG Interpreted by Me EKG Comments: 12-lead Electrocardiogram Interpretation Note EKG was reviewed and interpreted by myself. 12-lead ECG performed at 2107 is interpreted by me as revealing normal sinus rhythm at a rate of 71 beats per minute. [place] is normal. [place] interval is 142 ms, QRS duration 73 ms, QTc is 406 ms. Isolated T-wave inversion in lead V3.. There were no acute ST or T wave abnormalities to suggest myocardial ischemia or injury. R wave progression across the precordium was satisfactory. By my interpretation this EKG is non- diagnostic for acute ischemia. Disposition Clinical Impression: COVID-19, Dehydration, UTI (urinary tract infection), Pulmonary nodule Disposition: HOME SELF-CARE Condition: Good Prescriptions: Cephalexin [Keflex] 500 mg PO Q12HR 5 Days #10 cap Is patient prescribed a controlled substance at d/c from ED?: No Referrals: [facility]inic [Primary Care Provider] - 1-2 days Time of Disposition: 22:20
--- NOTE | 2023-09-07 21:58 | CT ---
EXAMINATION TYPE: CT brain wo con DATE OF EXAM: 09/07/2023 COMPARISON: 04/09/2019 HISTORY: 68-year-old female weakness and dizziness TECHNIQUE: Examination was done in axial plane without intravenous contrast. Coronal and sagittal r econstructions performed. CT DLP: 1146.4 mGycm Automated exposure control for dose reduction was used. FINDINGS: There is no evidence of acute intracranial hemorrhage, acute ischemic changes, mass, mass-effect, or extra-axial fluid collection. There is no effacement of cerebral sulci or basal subarachnoid cister ns. There is no hydrocephalus. There is no midline shift. Ny-white matter distinction is preserv ed. Anatomic variation with smaller right lateral ventricle, unchanged from 2019. Scattered mild mucosal thickening ethmoid air cells. Mastoid air cells well pneumatized. Rightward na carlos manuel septal deviation. Orbits and globes are intact. IMPRESSION: No acute intracranial abnormality seen. Mild chronic ethmoid sinus disease.
--- NOTE | 2023-09-07 22:02 | XR ---
EXAMINATION TYPE: XR chest 2V DATE OF EXAM: 09/07/2023 COMPARISON: 02/18/2019 HISTORY: 68-year-old female with fall, dizziness, weakness TECHNIQUE: PA and lateral views FINDINGS: Heart upper limits of normal in size. Mildly tortuous/ectatic aortic arch. Mild interstitial prominen ce of the chronic appearance. ACDF hardware. No consolidation or pleural effusion. Either summation s hadow or a subtle pulmonary nodule or density in the right upper lobe. IMPRESSION: 1. Borderline heart size. Chronic appearing changes. No definite acute process. 2. There is either a summation shadow versus a subtle underlying pulmonary nodule at the right upper lobe. Nonemergent outpatient follow-up CT chest to exclude underlying pulmonary nodule.
[2023-09-07 22:06] LABS: Appearance,Urine Clear (Clear); Bacteria,Urine Rare /hpf; Bilirubin,Urine Negative (Negative); Blood,Urine Negative (Negative); Color,Urine Yellow; Glucose,Urine (UA) Negative (Negative); Ketones,Urine Negative (Negative); Leukocyte Esterase,Urine Large (Negative); Mucus,Urine Occasional /hpf; Nitrite,Urine Negative (Negative); PH, Urine 8.5 (5.0-8.0); Protein,Urine Trace (Negative); RBC,Urine 4 /hpf (0-5); Specific Gravity,Urine 1.019 (1.001-1.035); Squamous Epithelial Cell,Urine 3 /hpf (0-4); Urobilinogen,Urine <2.0 mg/dL (<2.0); WBC,Urine 22 /hpf (0-5)
[2023-09-07] MEDS ORDERED: CEPHALEXIN 500 MG CAP PO STA (22:29)
[2023-09-07] MEDS ORDERED: CEPHALEXIN 500MG STARTER PACK 4 CAP BTL PO STA (22:29)
[2023-09-07 22:48] VITALS: BP 136/68; PULSE 78; TEMP 97.9
== END 2023-09-07 22:58 | disposition home or self-care (01) ==
LOC: EC 20:18
DX: U07.1 COVID-19 (principal); E86.0 Dehydration; N39.0 Urinary tract infection, site not specified; R91.1 Solitary pulmonary nodule; J45.909 Unspecified asthma, uncomplicated; E07.9 Disorder of thyroid, unspecified; E78.5 Hyperlipidemia, unspecified; I10 Essential (primary) hypertension; G47.30 Sleep apnea, unspecified; K21.9 Gastro-esophageal reflux disease without esophagitis; F41.9 Anxiety disorder, unspecified; F32.A Depression, unspecified; Z79.890 Hormone replacement therapy; Z79.899 Other long term (current) drug therapy; Z88.0 Allergy status to penicillin; Z88.8 Allergy status to other drugs, medicaments and biological substances
CPT/HCPCS: 36415; 70450; 71046; 80053; 81001; 83605; 83735; 85025; 85610; 85730; 87636; 96360; 99285

== ENCOUNTER → 2023-09-29 | Outpatient (CLI) | payer OTHER ==
--- NOTE | 2023-09-29 09:59 | CT ---
EXAMINATION TYPE: CT chest wo con CT DLP: 494.9 mGycm, Automated exposure control for dose reduction was used. DATE OF EXAM: 09/29/2023 9:35 AM COMPARISON: Chest radiograph from 09/07/2023. 09/22/2020. CLINICAL INDICATION:Female, 68 years old with history of R91 abnormal findings lung field; PHH, abnor mal finding of cxr TECHNIQUE: Multiple axial images were obtained through the chest. Sagittal and coronal reformats were created for review. Contrast used: mL of (None if empty) Oral contrast used: (None if empty) FINDINGS: LUNGS/ PLEURA: No pulmonary nodule to correlate with the upper right lung finding on prior radiograph . There is right middle lobe pulmonary nodule near the diaphragm measuring 5 mm. Minor fissure intraf issural lymph nodes are present. AIRWAY: Patent and unremarkable. HEART: Heart is mildly enlarged for size. Fat density protruding into the atrium measuring 11 mm. MEDIASTINUM: No gross evidence of adenopathy. VASCULATURE: No aortic aneurysm. 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 MUSCULOSKELETAL: No acute osseous abnormalities, partially visualized fixation hardware in the cervic al spine is intact. SOFT TISSUES/LYMPH NODES: Unremarkable. LOWER NECK: No significant findings. UPPER ABDOMEN: No significant findings. IMPRESSION: 1. No finding to correlate with right upper lobe nodule. Finding on prior chest radiograph likely re presenting summation artifact versus resolved airspace disease. 2. 5 mm right middle lobe pulmonary nodule. Stable from 09/22/2020. This is felt to be different than the chest radiograph finding. 3. Fat density protruding into the left atrium correlate with echogram for myxoma. 4. Mild cardiomegaly. 5. 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 Follow up recommendations for incidental pulmonary nodules, if there are any, are per [employer] [employer] or [place] [employer]. [email or web address].org/[email or web address]?lang=us
== END | disposition home or self-care (01) ==
LOC: RADCTMAIN 09:00
PROVIDERS: ATTEND Family Medicine
DX: I77.810 Thoracic aortic ectasia (principal); I51.7 Cardiomegaly; R91.1 Solitary pulmonary nodule; R91.8 Other nonspecific abnormal finding of lung field
CPT/HCPCS: 71250

== ENCOUNTER 2023-10-24 06:13 | Day surgery (SDC) | payer OTHER ==
[2023-10-21 14:03] VITALS: BMI 42.5
[2023-10-24] MEDS: SODIUM CHLORIDE 0.9% 500 ML 500 ML IV ONE (06:36)
[2023-10-24] MEDS ORDERED: fentaNYL (PF) 50 MCG/ML 2 ML AMP ONE (07:08)
[2023-10-24 07:27] VITALS: TEMP 97.8
[2023-10-24] MEDS: MIDAZOLAM 2 MG/2 ML VIAL IVP ONE ×2 (07:41→07:45)
[2023-10-24] MEDS: fentaNYL (PF) 50 MCG/ML 2 ML AMP IVP ONE (07:41)
--- NOTE | 2023-10-24 07:59 | P.PCN ---
Date of Procedure: 10/24/23 Operative Findings: TRANSESOPHAGEAL ECHOCARDIOGRAM INTERNATIONAL OPERATIONS MANAGER: VERN GARCIA MD, RPVI INDICATION: Left atrial mass was identified on the computed tomography scan of the chest SEDATION: Conscious sedation COMPLICATION: None LEVEL OF SEDATION [] PROCEDURE DESCRIPTION: After obtaining an informed consent, the patient was brought to transesophageal echocardiogram room. Pulse oximetry and heart monitors were attached to the patient. The patient throat was sprayed using lidocaine. The patient was turned into left lateral position. After that a bite guard was placed. After an appropriate conscious sedation was initiated, the transesophageal echocardiogram was advanced through a bite guard into the mid esophagus. A 2-D echocardiogram images, color Doppler images, continuous wave images, pulse-wave images, of various cardiac structure were performed. After that the transesophageal echocardiogram probe was advanced into the stomach and fixed to obtain transgastric view was. The probe was brought into the mid esophagus. Inter-atrial septum was interrogated using 2D images, color Doppler images, and then contrast study. After that transesophageal echocardiogram was withdrawn out and upon withdrawing the descending thoracic aorta all the way up to the arch was evaluated. CONCLUSION: 1. Thick interatrial septum with no evidence of patent foramen ovale or atrial septal defect 2. Normal biventricular dimension and systolic function 3. Trileaflet aortic valve was mild aortic insufficiency 4. Normal mitral valve leaflets with mild MR 5. Normal tricuspid valve and pulmonic valve 6. No evidence of pericardial effusion
[2023-10-24 09:32] VITALS: BP 142/62; PULSE 59; RESP 16
== END 2023-10-24 09:02 | disposition home or self-care (01) ==
LOC: CATHCVL 06:13
PROVIDERS: ATTEND Internal Medicine Interventional Cardiology
DX: I35.1 Nonrheumatic aortic (valve) insufficiency (principal); I10 Essential (primary) hypertension; E78.5 Hyperlipidemia, unspecified; E03.9 Hypothyroidism, unspecified; Z79.899 Other long term (current) drug therapy; Z79.890 Hormone replacement therapy; Z88.0 Allergy status to penicillin; Z88.8 Allergy status to other drugs, medicaments and biological substances; I25.10 Atherosclerotic heart disease of native coronary artery without angina pectoris; Z82.49 Family history of ischemic heart disease and other diseases of the circulatory system
CPT/HCPCS: 93312; 93320; 93325; J2250; J3010

== ENCOUNTER 2024-01-11 16:57 | Emergency (ER) | payer OTHER ==
[2024-01-11 18:01] VITALS: RESP 18
--- NOTE | 2024-01-11 18:09 | ED ---
General Adult HPI - General Chief complaint: Abdominal Pain Stated complaint: Abd pain Time Seen by Provider: 01/11/24 17:28 Source: patient Mode of arrival: wheelchair Limitations: no limitations - History of Present Illness Initial comments: 68-year-old female presents for evaluation of left-sided abdominal pain constipation. Patient states that this has been going on for around 1 week but the pain in her abdomen has been worse today. Patient reports having a small bowel movement 2 days ago. She admits to nausea without vomiting. Patient reports that she has been taking [id number] laxatives although she is not sure which one. Denies fever, chills. - Related Data Home Medications Medication Instructions Recorded Confirmed Levothyroxine Sodium [Synthroid] 100 mcg PO DAILY 03/04/18 01/11/24 lisinopriL [Zestril] 20 mg PO DAILY 03/04/18 01/11/24 Fluticasone Nasal [place] [Flonase 1 spray EA NOSTRIL DAILY PRN 02/18/19 01/11/24 Nasal [place]] [place]-3 Fatty Acids/Fish Oil [Fish 1,000 mg PO DAILY 02/18/19 01/11/24 Oil 1,000 mg Softgel] Pantoprazole [Protonix] 40 mg PO DAILY 02/18/19 01/11/24 Metoprolol Succinate [Toprol XL] 25 mg PO DAILY 03/31/19 01/11/24 Aspirin [Adult Low Dose Aspirin EC] 81 mg PO DAILY 04/02/19 01/11/24 Cyclobenzaprine [Flexeril] 5 mg PO BID 09/22/20 01/11/24 Simvastatin [Zocor] 40 mg PO HS 09/22/20 01/11/24 traZODone HCL 300 mg PO HS 09/22/20 01/11/24 HYDROcodone/APAP 5-325MG [[place] 1 tab PO TID PRN 10/21/23 01/11/24 5-325] Meloxicam [Mobic] 15 mg PO DAILY PRN 10/21/23 01/11/24 Tamsulosin [Flomax] 0.8 mg PO DAILY 10/21/23 01/11/24 Cholecalciferol [Vitamin D3 (25 25 mcg PO DAILY 01/11/24 01/11/24 Mcg = 1000 Iu)] DULoxetine HCL [Cymbalta] 30 mg PO DIRECTED 01/11/24 01/11/24 Desvenlafaxine Succinate [Pristiq 50 mg PO DAILY 01/11/24 01/11/24 ER] busPIRone HCL 15 mg PO BID 01/11/24 01/11/24 Allergies Allergy/AdvReac Type Severity Reaction Status Date / Time Penicillins Allergy Rash/Hives/ Verified 01/11/24 19:47 Swelling Tetracyclines Allergy Dyspnea/asa Verified 01/11/24 19:47 h Review of Systems ROS Statement: Those systems with pertinent positive or pertinent negative responses have been documented in the HPI. ROS Other: All systems not noted in ROS Statement are negative. Past Medical History Past Medical History: Asthma, Chest Pain / Angina, Fibromyalgia, GERD/Reflux, Hyperlipidemia, Hypertension, Osteoarthritis (OA), Skin Disorder, Sleep A pnea/CPAP/BIPAP, Thyroid Disorder Additional Past Medical History / Comment(s): Chronic back pain. no cpap used currently, IBS, hx colitis, flaky spot on eyelid, History of Any Multi-Drug Resistant Organisms: None Reported Past Surgical History: Hysterectomy, Joint Replacement, Tubal Ligation Additional Past Surgical History / Comment(s): cervical fusion, left total knee replacement. Past Anesthesia/Blood Transfusion Reactions: No Reported Reaction Additional Past Anesthesia/Blood Transfusion Reaction / Comment(s): no hx blood transfusion Past Psychological History: Anxiety, Depression Smoking Status: Never smoker Past Alcohol Use History: None Reported Past Drug Use History: None Reported - Past Family History Mother Sister(s) Family Medical History: Cancer Additional Family Medical History / Comment(s): breast,uterine,cervical Brother(s) Family Medical History: Cancer Sister(s) Family Medical History: Cancer Additional Family Medical History / Comment(s): 3 sisters had cancer. Oldest had bone cancer at age 13, other 2 had breast cancer. Mother Family Medical History: Cancer Additional Family Medical History / Comment(s): Breast cancer. General Exam Limitations: no limitations General appearance: alert, in no apparent distress Head exam: Present: atraumatic, normocephalic, normal inspection Eye exam: Present: normal appearance, PERRL, EOMI. Absent: scleral icterus, conjunctival injection, periorbital swelling ENT exam: Present: normal exam, mucous membranes moist Neck exam: Present: normal inspection. Absent: tenderness, meningismus, lymphadenopathy Respiratory exam: Present: normal lung sounds bilaterally. Absent: respiratory distress, wheezes, rales, rhonchi, stridor Cardiovascular Exam: Present: regular rate, normal rhythm, normal heart sounds. Absent: systolic murmur, diastolic murmur, rubs, gallop, clicks GI/Abdominal exam: Present: soft, tenderness (Left-sided upper and lower), normal bowel sounds. Absent: distended, guarding, rebound, rigid Extremities exam: Present: normal inspection, full ROM, normal capillary refill. Absent: tenderness, pedal edema, joint swelling, calf tenderness Back exam: Present: normal inspection Neurological exam: Present: alert, oriented X3 Psychiatric exam: Present: normal affect, normal mood Skin exam: Present: warm, dry, intact, normal color. Absent: rash Course Vital Signs 01/11/24 01/11/24 01/11/24 17:21 20:00 21:27 Temperature 98.4 F 98.1 F Pulse Rate 64 60 60 Respiratory 18 18 18 Rate Blood Pressure 135/81 153/79 141/84 O2 Sat by Pulse 97 95 94 L Oximetry Medical Decision Making - Medical Decision Making Was pt. sent in by a medical professional or institution (, PA, DESTINATION IMAGINATION COORDINATOR, urgent care, hospital, or usp...) When possible be specific @ -No Did you speak to anyone other than the patient for history (EMS, parent, family, police, friend...)? What history was obtained from this source @ -No Did you review nursing and triage notes (agree or disagree)? Why? @ -I reviewed and agree with nursing and triage notes Were old charts reviewed (outside hosp., previous admission, EMS record, old EKG, old radiological studies, urgent care reports/EKG's, usp records)? Report findings @ -No old charts were reviewed Differential Diagnosis (chest pain, altered mental status, abdominal pain women, abdominal pain men, vaginal bleeding, weakness, fever, dyspnea, syncope, headache, dizziness, GI bleed, back pain, seizure, CVA, palpatations, mental health, musculoskeletal)? @ -Differential Abdominal Pain Women: Appendicitis, Cholecystitis, diverticulosis, ischemic bowel, pancreatitis, hepatitis, UTI, gastroenteritis, AAA, incarcerated hernia, bowel obstruction, constipation, inflammatory bowel, hepatitis, peptic ulcer disease, splenic infarction, perforated viscus, vulvitis, ovarian torsion, PID, kidney stone, placenta abruption, this is not meant to be an all-inclusive list e EKG interpreted by me (3pts min.). @ -None X-rays interpreted by me (1pt min.). @ -None done CT interpreted by me (1pt min.). @ -CT abdomen pelvis obtained which shows moderate stool burden with no acute process, no evidence of bowel obstruction U/S interpreted by me (1pt. min.). @ -None done What testing was considered but not performed or refused? (CT, X-rays, U/S, labs)? Why? @ -None What meds were considered but not given or refused? Why? @ -None Did you discuss the management of the patient with other professionals (melanie perry i.e. , PA, DESTINATION IMAGINATION COORDINATOR, lab, RT, psych nurse, health care social worker, director community organization, teacher, senior compliance officer, case sealer)? Give summary @ -No Was smoking cessation discussed for >3mins.? @ -No Was critical care preformed (if so, how long)? @ -No Were there social determinants of health that impacted care today? How? (Homelessness, low income, unemployed, alcoholism, drug addiction, transportation, low edu. Level, literacy, decrease access to med. care, detention, rehab)? @ -No Was there de-escalation of care discussed even if they declined (Discuss DNR or withdrawal of care, Hospice)? DNR status @ -No What co-morbidities impacted this encounter? (DM, HTN, Smoking, COPD, CAD, Cancer, CVA, ARF, Chemo, Hep., AIDS, mental health diagnosis, sleep apnea, morbid obesity)? @ -None Was patient admitted / discharged? Hospital course, mention meds given and route, prescriptions, significant lab abnormalities, going to OR and other pertinent info. @ -Discharge. Patient presented to the emergency department for evaluation of left-sided abdominal pain and constipation. Laboratory studies obtained. CBC, C MP essentially unremarkable; UA shows trace protein, small leukocyte esterase otherwise unremarkable. CT abdomen pelvis was obtained which shows no evidence for acute process, moderate stool burden. Patient provided medication for constipation relief. Strict return precautions discussed. Patient understanding and agreeable with plan. stable at time of discharge. Case discussed with Dr. Nance Undiagnosed new problem with uncertain prognosis? @ -No Drug Therapy requiring intensive monitoring for toxicity (Heparin, Nitro, Insulin, Cardizem)? @ -No Were any procedures done? @ -No Diagnosis/symptom? @ -Abdominal pain, constipation Acute, or Chronic, or Acute on Chronic? @ -Acute Uncomplicated (without systemic symptoms) or Complicated (systemic symptoms)? @ -Uncomplicated Side effects of treatment? @ -No Exacerbation, Progression, or Severe Exacerbation? @ -No Poses a threat to life or bodily function? How? (Chest pain, USA, MS, pneumonia, PE, COPD, DKA, ARF, appy, cholecystitis, CVA, Diverticulitis, Homicidal, Suicidal, threat to staff... and all critical care pts) @ -No - Lab Data Result diagrams: 01/11/24 19:00 01/11/24 19:00 Lab Results 01/11/24 01/11/24 01/11/24 Range/Units 19:00 19:00 19:00 WBC 6.9 (3.8-10.6) k/uL RBC 4.50 (3.80-5.40) m/uL Hgb 13.1 (11.4-16.0) gm/dL Hct 40.4 (34.0-46.0) % MCV 89.9 (80.0-100.0) fL MCH 29.0 (25.0-35.0) pg MCHC 32.3 (31.0-37.0) g/dL RDW 12.9 (11.5-15.5) % Plt Count 285 (150-450) k/uL MPV 8.1 Neutrophils % 54 % Lymphocytes % 35 % Monocytes % 7 % Eosinophils % 2 % Basophils % 1 % Neutrophils # 3.7 (1.3-7.7) k/uL Lymphocytes # 2.4 (1.0-4.8) k/uL Monocytes # 0.5 (0-1.0) k/uL Eosinophils # 0.1 (0-0.7) k/uL Basophils # 0.1 (0-0.2) k/uL Sodium 142 (137-145) mmol/L Potassium 3.9 (3.5-5.1) mmol/L Chloride 105 (98-107) mmol/L Carbon Dioxide 28 (22-30) mmol/L Anion Gap 9 mmol/L BUN 14 (7-17) mg/dL Creatinine 0.76 (0.52-1.04) mg/dL Est GFR (CKD-EPI)AfAm >90 (>60 ml/min/1.73 sqM) Est GFR (CKD-EPI)NonAf 83 (>60 ml/min/1.73 sqM) Glucose 106 H (74-99) mg/dL Plasma Lactic Acid [place] (0.7-2.0) mmol/L Calcium 9.6 (8.4-10.2) mg/dL Total Bilirubin 0.4 (0.2-1.3) mg/dL AST 28 (14-36) U/L ALT 30 (4-34) U/L Alkaline Phosphatase 64 (38-126) U/L Total Protein 7.7 (6.3-8.2) g/dL Albumin 4.7 (3.5-5.0) g/dL Amylase 48 (30-110) U/L Lipase 90 (23-300) U/L Urine Color Yellow Urine Appearance Clear (Clear) Urine pH 5.5 (5.0-8.0) Ur Specific [place] 1.026 (1.001-1.035) Urine Protein Trace H (Negative) Urine Glucose (UA) Negative (Negative) Urine Ketones Negative (Negative) Urine Blood Negative (Negative) Urine Nitrite Negative (Negative) Urine Bilirubin Negative (Negative) Urine Urobilinogen <2.0 (<2.0) mg/dL Ur Leukocyte Esterase Small H (Negative) Urine RBC 1 (0-5) /hpf Urine WBC 5 (0-5) /hpf Ur Squamous Epith Cells <1 (0-4) /hpf Urine Mucus Many H (None) /hpf 01/11/24 Range/Units 19:00 WBC (3.8-10.6) k/uL RBC (3.80-5.40) m/uL Hgb (11.4-16.0) gm/dL Hct (34.0-46.0) % MCV (80.0-100.0) fL MCH (25.0-35.0) pg MCHC (31.0-37.0) g/dL RDW (11.5-15.5) % Plt Count (150-450) k/uL MPV Neutrophils % % Lymphocytes % % Monocytes % % Eosinophils % % Basophils % % Neutrophils # (1.3-7.7) k/uL Lymphocytes # (1.0-4.8) k/uL Monocytes # (0-1.0) k/uL Eosinophils # (0-0.7) k/uL Basophils # (0-0.2) k/uL Sodium (137-145) mmol/L Potassium (3.5-5.1) mmol/L Chloride (98-107) mmol/L Carbon Dioxide (22-30) mmol/L Anion Gap mmol/L BUN (7-17) mg/dL Creatinine (0.52-1.04) mg/dL Est GFR (CKD-EPI)AfAm (>60 ml/min/1.73 sqM) Est GFR (CKD-EPI)NonAf (>60 ml/min/1.73 sqM) Glucose (74-99) mg/dL Plasma Lactic Acid [place] 0.9 (0.7-2.0) mmol/L Calcium (8.4-10.2) mg/dL Total Bilirubin (0.2-1.3) mg/dL AST (14-36) U/L ALT (4-34) U/L Alkaline Phosphatase (38-126) U/L Total Protein (6.3-8.2) g/dL Albumin (3.5-5.0) g/dL Amylase (30-110) U/L Lipase (23-300) U/L Urine Color Urine Appearance (Clear) Urine pH (5.0-8.0) Ur Specific [place] (1.001-1.035) Urine Protein (Negative) Urine Glucose (UA) (Negative) Urine Ketones (Negative) Urine Blood (Negative) Urine Nitrite (Negative) Urine Bilirubin (Negative) Urine Urobilinogen (<2.0) mg/dL Ur Leukocyte Esterase (Negative) Urine RBC (0-5) /hpf Urine WBC (0-5) /hpf Ur Squamous Epith Cells (0-4) /hpf Urine Mucus (None) /hpf Disposition Clinical Impression: Constipation, Abdominal pain Disposition: HOME SELF-CARE Condition: Stable Instructions (If sedation given, give patient instructions): Abdominal Pain (ED) Additional Instructions: Please increase fluid and fiber intake. Follow up with your primary care provider. Return to the emergency department for new or worsening symptoms. Is patient prescribed a controlled substance at d/c from ED?: No Referrals: [facility],Clinic [Primary Care Provider] - 1-2 days
[2024-01-11 19:09] LABS: Basophils # (A) 0.1 k/uL (0-0.2); Basophils % (A) 1 %; Eosinophils # (A) 0.1 k/uL (0-0.7); Eosinophils % (A) 2 %; HCT 40.4 % (34.0-46.0); HGB 13.1 gm/dL (11.4-16.0); Lymphocytes # (A) 2.4 k/uL (1.0-4.8); Lymphocytes % (A) 35 %; MCHC 32.3 g/dL (31.0-37.0); MCV 89.9 fL (80.0-100.0); Mean Platelet Volume 8.1; Monocytes # (A) 0.5 k/uL (0-1.0); Monocytes % (A) 7 %; Neutrophils # (A) 3.7 k/uL (1.3-7.7); Neutrophils % (A) 54 %; Platelet Count 285 k/uL (150-450); RDW 12.9 % (11.5-15.5); WBC 6.9 k/uL (3.8-10.6)
[2024-01-11 19:12] LABS: Appearance,Urine Clear (Clear); Bilirubin,Urine Negative (Negative); Blood,Urine Negative (Negative); Color,Urine Yellow; Glucose,Urine (UA) Negative (Negative); Ketones,Urine Negative (Negative); Leukocyte Esterase,Urine Small (Negative); Mucus,Urine Many /hpf; Nitrite,Urine Negative (Negative); PH, Urine 5.5 (5.0-8.0); Protein,Urine Trace (Negative); RBC,Urine 1 /hpf (0-5); Specific Gravity,Urine 1.026 (1.001-1.035); Squamous Epithelial Cell,Urine <1 /hpf (0-4); Urobilinogen,Urine <2.0 mg/dL (<2.0); WBC,Urine 5 /hpf (0-5)
[2024-01-11 19:34] LABS: ALT 30 U/L (4-34); AST 28 U/L (14-36); African American GFR (CKD) >90 (>60 ml/min/1.73 sqM); Albumin 4.7 g/dL (3.5-5.0); Alkaline Phosphatase 64 U/L (38-126); Amylase 48 U/L (30-110); Anion Gap 9 mmol/L; Blood Urea Nitrogen 14 mg/dL (7-17); Calcium 9.6 mg/dL (8.4-10.2); Carbon Dioxide 28 mmol/L (22-30); Chloride 105 mmol/L (98-107); Glucose 106 mg/dL (74-99); Lipase 90 U/L (23-300); Non-African American GFR(CKD) 83 (>60 ml/min/1.73 sqM); Potassium 3.9 mmol/L (3.5-5.1); Sodium 142 mmol/L (137-145); Total Bilirubin 0.4 mg/dL (0.2-1.3); Total Protein 7.7 g/dL (6.3-8.2)
[2024-01-11 20:38] VITALS: PULSE 60
--- NOTE | 2024-01-11 20:44 | CT ---
EXAMINATION TYPE: CT abdomen pelvis w con CT DLP: 1792.2 mGycm, Automated exposure control for dose reduction was used. DATE OF EXAM: 01/11/2024 8:03 PM COMPARISON: None. CLINICAL INDICATION:Female, 68 years old with history of Left sided pain; CONSTIPATED TECHNIQUE: Axial CT abdomen pelvis w con;Sagittal and coronal reformats were created on a separate w orkstation. Contrast used:100 mL of Isovue 300 with IV Contrast, (none if empty) Oral contrast used: without Oral Contrast (none if empty) FINDINGS: LOWER CHEST: Unremarkable ABDOMEN LIVER: Unremarkable GALLBLADDER AND BILE DUCTS: Unremarkable. PANCREAS: Unremarkable. SPLEEN: Unremarkable. ADRENAL GLANDS: Unremarkable. KIDNEYS AND URETERS: No evidence of hydronephrosis or renal calculus. The ureters are unremarkable. R ight renal cortical cyst. PELVIS BLADDER: Unremarkable REPRODUCTIVE: The uterus is surgically absent. ABDOMEN & PELVIS STOMACH AND BOWEL: No evidence of bowel obstruction. Moderate amount stool throughout the colon. PERITONEUM/RETROPERITONEUM: No evidence of pneumoperitoneum or free fluid. VASCULATURE: No evidence of aortic aneurysm. MUSCULOSKELETAL: No acute osseous abnormalities. Moderate disc degeneration changes are present throu ghout the thoracolumbar spine. Neural foraminal stenosis worse at L4-L5 bilaterally with moderate to severe and moderate bilateral L5-S1. LYMPH NODES: No gross evidence for lymphadenopathy. SOFT TISSUE/ABDOMINAL WALL: Fat-containing umbilical hernia. IMPRESSION: 1. No evidence for acute abdominal process. No evidence of bowel obstruction no obstructive uropathy . No evidence for diverticulitis. 2. Moderate amount stool throughout the colon.
[2024-01-11] MEDS: MAGNESIUM CITRATE 296 ML BOTTLE PO ONE (21:20)
[2024-01-11 22:04] VITALS: BP 141/84; TEMP 98.1
== END 2024-01-11 21:27 | disposition home or self-care (01) ==
LOC: EC 16:57
DX: K59.00 Constipation, unspecified (principal); Z88.0 Allergy status to penicillin; Z88.1 Allergy status to other antibiotic agents
CPT/HCPCS: 36415; 80053; 82150; 83605; 83690; 85025; 81001; 74177; 99284; Q9967

== ENCOUNTER → 2024-05-25 | Outpatient (CLI) | payer OTHER ==
--- NOTE | 2024-05-26 13:50 | MM ---
Reason for Exam: Screening (asymptomatic). Last mammogram was performed 1 year(s) and 1 month(s) ago. Patient History: Menarche at age 16. First Full-Term at age 24. Hysterectomy at age 40. Postmenopausal. Patient has history of breast feeding. Sister had breast cancer under age 50. Sister had breast cancer at or over age 50. Mother had breast cancer, age 68. Risk Values: Gracy 5 year model risk: 6.2%. NCI Lifetime model risk: 19.9%. Prior Study Comparison: 02/01/2021 Bilateral Screening Mammogram, [facility]. 02/13/2022 Bilateral MG screening mammo w CAD, [facility]. 04/30/2023 Bilateral MG screening mammo w CAD, [facility]. Tissue Density: There are scattered areas of fibroglandular density. Findings: Analyzed By CAD. There is no suspicious group of microcalcifications or new suspicious mass in either breast. Overall Assessment: Benign, BI-RAD 2 Management: Screening Mammogram of both breasts in 1 year. . Patient should continue monthly self-breast exams. A clinical breast exam by your physician is recommended on an annual basis. This exam should not preclude additional follow-up of suspicious palpable abnormalities. Note on Gracy scores and lifetime risk: 1. A Gracy score greater than 3% is considered moderate risk. If this is the case, consider specialist referral to assess eligibility for a risk reducing agent. 2. If overall lifetime risk for the development of breast cancer is 20% or higher, the patient may qualify for future screening with alternating mammogram and breast MRI. Electronically signed and approved by: Brandt Rodriguez M.D. Radiologis
== END | disposition home or self-care (01) ==
LOC: RADMAMWWP 09:31
PROVIDERS: ATTEND Family Medicine
DX: Z12.31 Encounter for screening mammogram for malignant neoplasm of breast
CPT/HCPCS: 77063; 77067

== ENCOUNTER → 2024-07-05 | Outpatient (CLI) | payer OTHER ==
--- NOTE | 2024-07-05 14:09 | CT ---
EXAMINATION TYPE: CT lumbar spine wo con DATE OF EXAM: 07/05/2024 2:03 PM COMPARISON: None HISTORY: SPONDYLOSIS W/O MYELOPATHY OR RADICULOPATHY CT DLP: 1631.80 mGycm Automated exposure control for dose reduction was used. Unenhanced CT of the lumbar spine was performed. Bone and soft tissue window settings are submitted as well as coronal and sagittal reconstructions. Findings: The lumbar vertebral segments are normal in height and alignment and there is no fracture or subluxat ion. There is vacuum phenomena, disc space narrowing and spondylosis at the L4-5 level consistent with mod erate to marked degenerative disc disease. The remaining lumbar intervertebral disc spaces are well-p reserved. There is no focal disc herniation. Secondary to disc bulge, thickening of the ligamentum flavum and hypertrophy of the facets, there is moderate to severe spinal stenosis at the L3-4 and L4-5 levels. Visualized sacrum and SI joints are normal. There is moderate facet arthropathy at the L4-5 level. The paraspinal soft tissues are unremarkable. IMPRESSION: 1. Moderate to marked degenerative disease at the L4-5 2. no lumbar disc herniation. 3. moderate marked spinal stenosis at the L3-4 and L4-5 levels. [facility], , 07/05/2024 2:07 PM
== END | disposition home or self-care (01) ==
LOC: RADCTMAIN 13:39
PROVIDERS: ATTEND Orthopaedic Surgery
CPT/HCPCS: 72131

== ENCOUNTER → 2024-09-24 | Outpatient (CLI) | payer OTHER, MEDICARE | LOC: LABWHC1 10:36 | PROVIDERS: ATTEND Orthopaedic Surgery | DX: M48.061 Spinal stenosis, lumbar region without neurogenic claudication (principal); M54.11 Radiculopathy, occipito-atlanto-axial region; Z22.322 Carrier or suspected carrier of Methicillin resistant Staphylococcus aureus | CPT/HCPCS: 86850; 86900; 86901; 87070 ==

== ENCOUNTER 2024-09-28 08:52 | Observation (INO) | payer OTHER ==
--- NOTE | 2024-09-27 22:06 | P.HPOR ---
History of Present Illness H&P Date: 09/24/24 .D:Date: 09/24/24 : 02:23pm .T:Title: *PRE-OP H1 L[facility] [address] [place] [id number]| PROVIDER: ABELARDO UREÑA DO CLINICAL SUMMARY: *Ms. Alexander is a 69-year-old retired female presenting for pre-operative evaluation for a planned L4-5 minimally invasive posterolateral and interbody fusion (left). She reports a 10-year history of progressive sharp, shooting lumbar pain radiating bilaterally into her lower extremities with associated numbness and tingling, exacerbated by prolonged ambulation and [id number] movements. Her symptoms have been refractory to conservative management including physical therapy, medications (Mobic, Ibuprofen, Tylenol, Aspirin, Gabapentin, Flexeril, Robaxin), customer care associate, massage therapy, and epidural injections. Current imaging reveals L4-5 spondylosis with Grade I retrolisthesis, severe disc collapse, facet collapse and hypertrophy, moderate to severe central canal stenosis, bilateral foraminal stenosis, and an acute on chronic disc herniation. Physical examination demonstrates bilateral lower extremity weakness (4/5 strength), positive straight leg raise on the right, diminished right-sided reflexes, L4-S1 dermatomal deficits bilaterally (R>L), and functional decline with inability to perform toe/heel walk or single leg stance. The patient currently ambulates with a walker and denies bowel or bladder dysfunction. DEMOGRAPHICS: Age: 69 year Height: 5'5" Weight: 261 lbs BP:120/82 BMI: 43.52 kg/m2 Occupation: *Retired CC: lumbar pain VAS: 6 HISTORY: Ms. Alexander presents to the office today, 09/24/24, for *a pre-operative appointment preceding her L4-5 MINIMALLY INVASIVE POSTEROLATERAL AND INTERBODY FUISON (LEFT). Patient describes a sharp and shooting lumbar pain that has been ongoing for 10 years and progressing. In addition to her lumbar pain she states it radiates into her bilateral lower extremities, associated with numbness and tingling. Patient states her symptoms are exacerbated with prolonged ambulation, sit to stand, and activities. Patient was prescribed Mobic at her last visit and she has been trialing the medication with no relief. She is currently taking Ibuprofen, Tylenol, and Aspirin as well. Patient ambulateswith a walker. * Patient denies any f/c/sob/cp, perineal numbness or tingling, bowel, or bladder incontinence/retention. * The patients past social, medical, family, surgical history, as well as review of systems, have been reviewed. Please refer to the History and Physical form that has been scanned into our electronic medical record system. * 16 points review of systems completed and as stated in HPI, all other systems reviewed are negative. PAST TREATMENTS: PAST IMAGING: -YES -XR, CT AND MRI OF L SPINE COMPLETED TRAUMA RELATED: -NO - WORK RELATED: -NO - PT IN LAST 6 MONTHS: -YES -SOME RELIEF, BUT NON LASTING, ALL SX RETURNED PHYSICIAN DIRECTED HOME EXERCISE PROGRAM: -YES -MINIMAL RELIEF ACTIVITY MODIFICAITON: -YES -LIMITED BLTPP 20 LBS -RESTING, DOES NOT HELP MEDICATIONS: -YES, Mobic and Aspirin -NO SHELTER HELP. TRIED GABAPENTIN, FLEXERIL, ROBAXIN IN THE PAST ALTERNATIVE INTERVENTIONS (CHIROPRACTIC, ACCUPUNCTURE, MASSAGE, RICE): -YES -CHIRO, MASSAGE BRACING: -NO - INJECTIONS (VALENTÍN, TF, RFA): -Yes, Dr. Alexander- relief at first, not now. NOW MAKES WORSE. MEDICAL HISTORY: Past Medical History: REVIEWED STATED IN CHART Past Surgical History: REVIEWED STATED IN CHART Social History: REVIEWED STATED IN CHART SMOKING: QUIT >15 YEARS AGO ETOH: None SUBSTANCES: None Family History: REVIEWED STATED IN CHART P1 Current Medications: Rx: Cymbalta Ref: 0 Instructions: twice daily Rx: lisinopriL 20 mg tablet Ref: 0 Instructions: Take 1 Tablet ORAL daily. Rx: PANTOPRAZOLE SODIUM 40MG ORAL Tablet DR, Ref: 0 Instructions: Take [address] ORAL daily. Rx: simvastatin 40 mg tablet Ref: 0 Instructions: Take 1 Tablet ORAL daily. Rx: SYNTHROID ORAL , Ref: 0 Instructions: Take 1 ORAL daily. Rx: aspirin 81 mg tablet,delayed release Ref: 0 Instructions: take 1 tablet (81 mg) by oral route once daily Rx: calcium , Ref: 0 Instructions: daily Rx: gabapentin 600 mg tablet Ref: 0 Instructions: take 1 tablet (600 mg) by oral route 3 times per day Rx: iron Ref: 0 Instructions: daily Rx: Vitamin Ref: 0 Instructions: vitamin D daily Rx: Wellbutrin Ref: 0 Instructions: 150 mg once a day Rx: cyclobenzaprine 10 mg tablet Ref: 0 Instructions: take 1 tablet (10 mg) by oral route 3 times per day Rx: meloxicam 15 mg tablet Ref: 0 Instructions: TAKE 1 TABLET BY MOUTH DAILY NEEDED Rx: meloxicam 7.5 mg tablet Ref: 0 Instructions: take 1 tablet (7.5 mg) by oral route once daily P1 PHYSICAL EXAM: General: AOX3, NAD, Well hydrate, well nourished HEENT: No lumps or masses Extremities: No color changes, no pooling Heart: RRR, no murmur, no gallop Lungs: CTAB, no w/r/r INTEGUMENT: Appearance: Normal color and turgor Surgical Incisions: NA Hairy Patches: ABSENT Dorsal Skin Dimples: Normal [employer] spots: ABSENT PALPATION: TTP Midline: NO Paracervical: NO Parathoracic: NO Paralumbar: YES SIJ TESTING (Dennis's, FABER4, Compression, Distraction, Thigh Thrust, Hip Thrust): NOT TESTED POSTURAL BALANCE: Coronal: BALANCED Sagittal: BALANCED Shoulder height: LEVEL Pelvic Girdle: LEVEL ROM AND APPEARANCE: Neck: UNRESTRICTED Lumbar: RESTRICTED Shoulders: Symmetrical Hips: Symmetrical Knees: Symmetrical Hands: Symmetrical Feet: Symmetrical VASCULAR STATUS: PALPABLE PULSES B/L UE AND LE 2/4 RAD/ULNAR/DP/PT Edema: NONE NEUROLOGICAL EXAMINATION: Mental Status: Awake, alert, fully oriented with normal attention, concentratio n, and memory. Fluent appropriate speech. CRANIAL NERVES: I: Olfactory not assessed. II: Visual acuity normal, no visual field deficit noted with confrontation. III, IV: Normal pupillary reflexes & intact extraocular movements without nystagmus. V, : Intact symmetrical facial sensation. VII: Intact symmetrical facial motor movement: Hearing intact. IX, X: Intact gag, swallow, & normal voice. XI: Sternocleidomastoid, trapezius function intact. XII: Tongue midline with normal movements. TENSIONING: * L'HERMITTE'S SIG:NEG SPURLUNG'S SIGN:NEG UPPER EXTREMITY TENSIONING SIGNS: NEG CUBITAL TUNNEL COMPRESSION:NEG TINELS AT WRIST:NEG STRAIGH LEG RAISE:RIGHT POS CONTRALATERAL STRAIGHT LEG RAISE: NEG MOTOR EXAM (0-5/5, NT) Muscle appearance: Symmetrical, without signs of atrophy or dystrophy UPPER EXTREMITY RIGHT LEFT Shoulder Abduction 5 5 Biceps 5 5 Triceps 5 5 Wrist Extension 5 5 Hand Intrinsics 5 5 Form Grader Operator 5 5 LOWER EXTREMITY RIGHT LEFT Hip Flexion 4 4 Knee Extension 4 4 Knee Flexion 4 4 Dorsiflexion 4 4 Plantarflexion 4 4 EHL 4 4 FHL 4 4 REFLEXES (0-4/2, NT): RIGHT LEFT Bicep 2 2 Brachioradialis 2 2 Triceps 2 2 Patellar 1 2 Achilles 1 2 PATHOLOGICAL REFLEXES: RIGHT LEFT COFFEY'S ABSENT ABSENT CLONUS ABSENT ABSENT BABINSKI ABSENT ABSENT RECTAL TONE: INTACT/NT SENSATION (0-4, NT): Sensation intact to LT and Pain * C5-T1 distribution BUE * L2-S2 distribution BLE *Exceptions below* DERMATOMAL DEFICIT/RADICULAR PATTERN: L4-S1 BLE R>L GAIT AND FUNCTIONAL EVALUATION: AMBULATORY AID SOMETIMES CANE ROMBERG'S TEST INTACT HAND AND FINGER DEXTERITY INTACT YES DYSDIADOCHOKINESIA EXAM NEG B/L YES TOE/HEEL WALK INTACT WITH GOOD BALANCE NO SQUAT AND RISE W/O ASSISTANCE TO 60 DEG KNEE FLEXION NO SINGLE LEG STANCE UNABLE TRENDELENBURG NEG IMAGING: XRay Lumbar Multiview (AP, Lateral, Flexion, Extension) with AP pelvis; [facility]: Mild to moderate multilevel spondylitic and degenerative changes with preserved alignment. Multilevel diminished disc space, most prominent L3-S1. Vertebral body heights are preserved. No acute osseous abnormalities. Pelvis: The visualized sacrum and iliac wings are within normal limits. CT Date: 07/05/24 Location: [facility] Region: Lumbar Contrast: N IMAGES ARE REVIEWED WITH THE PATIENT IN OFFICE AND DEMONSTRATE THE FOLLOWING: FINDINGS: L4-5 SPONDYLOSIS WITH GRADE I RETROLISTHESIS SECONDARY TO SEVERE DISC COLLAPSE, FACET COLLAPSE AND HYPERTROPHY WITH ARTHROPATHY WELL HNP AND STENOSIS. THERE IS BONY STENOSIS FROM FACET HYPERTROPHY, OSTEOPHYTES AND DISC OSTOEPHYTE COMPLEX CENTRALLY THAT IS MODERATE TO SEVERE. THERE IS B/L FORAMINAL STENOSIS DUE TO LIGAMENTAL HYPERTRPHY AND FACET HYPERTROPHY THAT IS MODERATE. THERE IS LATERAL RECESS STENOSIS DUE TO THE SAME. NO ACUTE LESIONS OR FRACTURES NOTED. THERE IS A LARGER HNP AT L4-5 NOTED THAT IS ACUTE ON CHRONIC WITH DEGENERATIVE CHAGNES SURROUNDING. IMPRESSION: It was my pleasure to have seen and examined Deyanira. I reviewed the patient's clinical syndrome, physical findings, and imaging studies during the appointment today. It is my impression that the patient has a diagnosis of. 1.L4-5 spondylosis and stenosis 2.L4-5 Grade 1 retrolisthesis 3.L4-5 HNP with severe stenosis 4. Lower extremity radiculopathy 5. Neurogenic claudication PLAN: DISCUSSION: -I have discussed with the patient their clinical signs and symptoms, imaging, and treatment options. We have discussed risks, benefits, potential outcomes and natural course as pertains top their issues. The patient understands and would like to proceed as follows below: SURGICAL RECOMMENDATION -L4-5 MINIMALLY INVASIVE POSTEROLATERAL AND INTERBODY FUISON (LEFT) Spine Surgery Risk Review Ms. Alexander is presenting for evaluation of lumbar pain, LE PAIN AND WEAKNESS. It was my pleasure to have seen and examined Ms. Alexander. In our visit today we have had a chance to go over subjective complaints, physical examination findings and treatments including the natural course history without intervention and various interventional options. The patients imaging demonstrates: SPONDYLOSIS AT L4-5 WITH RETROLISTHESIS, STNEOSIS AND DEGENERATIVE CHANGES THAT ARE MODERATE TO SEVERE CAUSING CENTRAL AND FORAMINAL STENOSIS THAT IS THE SAME. THERE ARE NO FRACTURES OR OTHER LEISONS NOTED. AT THIS TIME. On physical exam, Ms. Alexander demonstrates: Patient describes a sharp and shooting lumbar pain that has been ongoing for 10 years and progressing. In addition to her lumbar pain she states it radiates into her bilateral lower extremities, associated with numbness and tingling. Patient states her symptoms are exacerbated with prolonged ambulation, sit to stand, and activities. I have explained to the patient that as their condition progresses it will cause further neurological deficits and eventual paralysis. Based on the patients imaging, physical exam, and the rapid progression and disabling nature of their symptoms, at this time I recommend surgery in the form of a: L4-5 MIS Left PLIBF I discussed the risk and benefits of this procedure at length with Ms. ALEXANDER the patient has agreed to considered pursuing the procedure abovementioned. Prior to surgery, she should follow up with her PCP (Cardio, ID, IM etc) for clearance. Questions were invited and answered, and the patient wishes to proceed as outlined below. Currently, I am recommendin.L4-5 MINMIALLY INVASIVE POSTEROLATERAL AND INTERBODY FUSION (LEFT) 2.Follow up with PCP for surgical clearance 3.Review of surgical risks and benefits as well as an educational packet on the proposed surgical procedure. Risks: All surgical procedures come with inherent risks, including those related to positioning, anesthesia, intraoperative findings, and postoperative complications. It is important to understand that surgery does not come with any guarantee of a successful outcome as complications and adverse events are always possible. The patient was given a handout in office today discussing the surgical procedure and risks associated with the intervention, both of which were discussed with the patient. These risks include but are not limited to the following: * Experiencing same, different or even worse symptoms in back, neck, arms, or legs compared to before surgery. Requiring further surgery or other forms of treatment presently or at some time in the future at same or other levels of the intended spine surgery. On an extreme but fortunately relatively rare basis severe complication such as blindness, stroke, heart attack, temporary and/or permanent nerve injury, paralysis, coma, or may occur, sometimes without known explanation. Surgical complications may include but are not limited to risk of infection, fluid accumulation in the surgical dissection site, including a seroma or hematoma, that requires additional surgery, wound drainage, bleeding, new numbness or weakness, vision changes/loss, spinal fluid leakage, non-healing and/or infected incision, headaches, difficulty or inability to swallow, hoarseness, hemopneumothorax, pneumothorax, impotence, retrograde ejaculation, vaginal dryness; injury to nerves, spinal cord, blood vessels, lymphatics or other vital organs (i.e., bowel injury, injury to the great vessels); heterotopic bone formation; complications related to the hardware such as screws, rods, cages including misplaced hardware, device failure, instrumentation at the wrong spine level, hardware fracture/breakage, or hardware loosening; vertebral failure of the spinal column above or below the newly placed hardware; retained surgical instrumentations or devices and the need for further surgery. * Medical risks of the planned spine surgery include but are not limited to generalized Infections to the whole body or local areas outside of the surgical site (sepsis), heart attack, bleeding, anaphylaxis, meningitis, seizure, epilepsy, hearing loss, burn olsen, laceration of the head or other areas of the body, bruising, hypersensitivity of the skin, bladder over distension; allergic reaction; shoulder injury related to positioning; fat, blood and air clots to other areas of the body like heart, lungs, brain; fa ilure of internal organs such as lungs, kidneys, liver and excessive bleeding. If blood transfusions are necessary, note that transfusions may cause intolerance reactions such as anaphylaxis or other complex reactions. Despite best efforts, the results of spine surgery might not heal in terms of bone, soft tissues such as skin, fascia, ligaments, and joints. Additionally, in order to achieve best possible results, spine surgery may be carried out beyond the initially planned levels and involve decompression, fusion including insertion of hardware at levels other than the original intended area of surgical interest change some portions of the procedure in order to ensure the best possible outcomes. With spine surgery and spinal fusion, there are different off label uses of instrumentation (devices, implants and hardware) as well as biological substances (bone morphogenic proteins, demineralized bone matrix) as well as using extra bone from allograft sources (i.e. cadaver bone) or autograft (iliac crest bone, ribs, or the spine itself). The patient has been given information about these practices and their inherent risks and benefits. [facility] is an educational center that serves as a training facility for neurosurgical and orthopedic TRANSACTION COORDINATOR and Nursing students. Physician assistants are medically trained surgical providers who function in the outpatient, inpatient, and operating room setting under the direct supervision of the attending surgeon. [facility] has multiple operating rooms with single and overlapping rooms running daily. They currently function under the required guidelines as produced by the [facility] Finance Committee with regards to the overlapping rooms and will continue to comply with changes to this policy as they occur. The requ irements include and are complied with as follows: (1) the critical portions of the overlapping rooms will not occur at the same time, (2) the attending physician will be physically present during the critical portions of the procedure and immediately available during the entire case, and (3) a back-up attending is designated should the primary attending not be immediately available. The patient has had a chance to review all the listed information, has been given print outs detailing this information, and has had all his/her questions answered to their satisfaction. It was my pleasure to have seen and examined Ms. Alexander. In our visit today we have had a chance to go over my understanding of our patient's current condition, the natural course history without intervention and various in terventional options. Questions were invited and answered, and the patient wishes to proceed as outlined above. I have seen and examined the patient for 25 minutes and we have spent more than 50% of the time in repeat and detailed counseling about the patient's condition, its natural course history with out and as much as can be predicted with surgery and re-review of various surgical treatment options. In conclusion, Ms. Alexander requested we proceed with the above suggested surgery and are willing to accept risks and limitations of the suggested surgery as nature of the disease process and our best attempts at treatment for the condition. Thank you again for allowing us to be part of your patient's care. Please don't hesitate to contact me if you have any further questions. Medical Necessity Rationale Medical necessity for L4-5 minimally invasive posterolateral and interbody fusion (left) is established based on: Diagnostic Imaging Evidence: CT (07/05/24) demonstrates: L4-5 spondylosis with Grade I retrolisthesis Severe disc collapse with facet collapse and hypertrophy Moderate to severe central canal stenosis Bilateral foraminal stenosis Acute on chronic disc herniation at L4-5 X-rays (06/24/24) confirm multilevel degenerative changes most prominent at L3- S1 Clinical Findings: Bilateral lower extremity weakness (4/5 strength) Positive straight leg raise on right side Diminished reflexes (1+ patellar and Achilles on right) L4-S1 dermatomal deficits bilaterally (R>L) Functional decline with inability to perform toe/heel walk Unable to perform single leg stance Neurogenic claudication symptoms Failed Conservative Management: Physical therapy with only temporary relief Multiple medication trials including NSAIDs and muscle relaxants Activity modification with limited weight bearing Failed response to epidural injections (now worsening symptoms) Alternative interventions including customer care associate and massage therapy Authorization Request Justification Surgery is indicated based on: Documented progression of symptoms over 10 years with recent acceleration Objective neurological deficits correlating with imaging findings Failed comprehensive conservative management Presence of mechanical instability (Grade I retrolisthesis) Risk of further neurological deterioration without intervention The proposed minimally invasive surgical approach is recommended due to: Presence of both central and foraminal stenosis requiring decompression Mechanical instability requiring stabilization Need to address both neural compression and structural deformity Patient's elevated BMI (42.43) favoring minimally invasive technique Potential for faster recovery and reduced surgical morbidity The L4-5 focal intervention is supported by: Corresponding imaging findings at this level Matching clinical symptoms and neurological deficits Clear evidence of instability and neural compression Focal pathology amenable to targeted intervention FOLLOW UP: *POST-OP PLAN AT NEXT VISIT: * RECHECK PATIENT EDUCATION: Medications Reviewed: YES In our visit today Ms. Alexander and I have had a chance to go over my understanding of the patient's current condition, the natural course history without intervention and various interventional options. Questions were invited and answered, and the patient wishes to proceed as outlined above. I will be sure to keep you updated after Ms. Alexander returns here for further follow-up. Thank you again for your referral. Please do not hesitate to contact me if you have any further questions. Signed and authenticated by: Abelardo Jin [facility] [address] [facility], [address] [address] . This message is confidential, intended only for the named recipient(s) and may contain information that is privileged or exempt from disclosure under applicable law. If you are not the intended recipient(s), you are notified that the dissemination, distribution or copying of this information is prohibited. If you received this message in error, please notify the sender then delete this message. Past Medical History Past Medical History: Asthma, Chest Pain / Angina, Fibromyalgia, GERD/Reflux, Hyperlipidemia, Hypertension, Osteoarthritis (OA), Skin Disorder, Sleep Apnea/CPAP/BIPAP, Thyroid Disorder Additional Past Medical History / Comment(s): Chronic back pain. no cpap used currently, IBS, hx colitis, gets dry scaley areas History of Any Multi-Drug Resistant Organisms: None Reported Past Surgical History: Hysterectomy, Joint Replacement, Tubal Ligation Additional Past Surgical History / Comment(s): cervical fusion, dimas total knee replacement. Past Anesthesia/Blood Transfusion Reactions: No Reported Reaction Additional Past Anesthesia/Blood Transfusion Reaction / Comment(s): no hx blood transfusion Smoking Status: Never smoker - Past Family History Mother Sister(s) Family Medical History: Cancer Additional Family Medical History / Comment(s): breast,uterine,cervical Brother(s) Family Medical History: Cancer Sister(s) Family Medical History: Cancer Additional Family Medical History / Comment(s): 3 sisters had cancer. Oldest had bone cancer at age 13, other 2 had breast cancer. Mother Family Medical History: Cancer Additional Family Medical History / Comment(s): Breast cancer. Medications and Allergies Home Medications Medication Instructions Recorded Confirmed Type Levothyroxine Sodium [Synthroid] 100 mcg PO DAILY 03/04/18 09/23/24 History lisinopriL [Zestril] 20 mg PO DAILY 03/04/18 09/23/24 History Harbeson-3 Fatty Acids/Fish Oil [Fish 1,000 mg PO DAILY 02/18/19 09/23/24 History Oil 1,000 mg Softgel] Pantoprazole [Protonix] 40 mg PO DAILY 02/18/19 09/23/24 History Metoprolol Succinate [Toprol XL] 25 mg PO DAILY 03/31/19 09/23/24 History Aspirin [Adult Low Dose Aspirin EC] 81 mg PO DAILY 04/02/19 09/23/24 History Cyclobenzaprine [Flexeril] 5 mg PO TID 09/22/20 09/23/24 History Simvastatin [Zocor] 40 mg PO HS 09/22/20 09/23/24 History traZODone HCL 300 mg PO HS 09/22/20 09/23/24 History Tamsulosin [Flomax] 0.8 mg PO DAILY 10/21/23 09/23/24 History DULoxetine HCL [Cymbalta] 60 mg PO DIRECTED 01/11/24 09/23/24 History busPIRone HCL 15 mg PO BID 01/11/24 09/23/24 History Albuterol Inhaler [Ventolin Hfa 1 - 2 puff INHALATION Q6H PRN 09/23/24 09/23/24 History Inhaler] Gabapentin 600 mg PO TID 09/23/24 09/23/24 History Loratadine 10 mg PO DAILY 09/23/24 09/23/24 History Magnesium Citrate and Oxide 500 mg PO DAILY 09/23/24 09/23/24 History [Magnesium] Stool Softener (Unk) 1 - 2 tab PO DAILY PRN 09/23/24 09/23/24 History Allergies Allergy/AdvReac Type Severity Reaction Status Date / Time Penicillins Allergy Rash/Hives/ Verified 09/23/24 09:37 Swelling Tetracyclines Allergy Dyspnea/asa Verified 09/23/24 09:37 h Physical Examination Osteopathic Statement: *. No significant issues noted on an osteopathic structural exam other than those noted in the History and Physical/Consult.
[~2024-09-28 08:52] MED LIST changes: +GABAPENTIN 300 MG CAP PO PRN; -LACTATED RINGERS 1,000 ML IV SCH; -LIDOCAINE 1% (10MG/ML) FOR IV START INTRADERMA PRN; +TRANEXAMIC 1,000 MG/100ML-NACL 1,000 MG in SALINE 1 100ML.BAG IVPB PRN
[2024-09-28] MEDS: ACETAMINOPHEN TAB 500 MG TAB PO PRN (09:43)
[2024-09-28] MEDS: LACTATED RINGERS 1,000 ML BAG IV STA (09:50)
[2024-09-28] MEDS: ONDANSETRON 4 MG/2 ML VIAL IVP PRN (09:50)
[2024-09-28] MEDS: IV FLUID CONTINUATION 1,000 ML IV ONE ×2 (09:58)
[2024-09-28] MEDS ORDERED: ALBUMIN HUMAN 5% (25gm) 500 ML VIAL IVPB ONE (10:44)
[2024-09-28] MEDS ORDERED: LIDOCAINE 1% INJ 10MG/ML (20 ML MDV) ONE (10:44)
[2024-09-28] MEDS ORDERED: GLYCOPYRROLATE 0.2 MG/ML 2 ML VIAL ONE (10:44)
[2024-09-28] MEDS ORDERED: fentaNYL (PF) 50 MCG/ML 2 ML AMP ONE (10:44)
[2024-09-28] MEDS ORDERED: KETAMINE HCL IN 0.9 % NACL 50 MG/5 ML SYRINGE ONE (10:44)
[2024-09-28] MEDS ORDERED: PHENYLEPHRINE 10 MG/ML VIAL ONE (10:44)
[2024-09-28] MEDS ORDERED: VASOPRESSIN 20 UNIT/ML 1 ML VIAL ONE (10:44)
[2024-09-28] MEDS ORDERED: WATER FOR INJECTION, STERILE 10 ML VIAL IV ONE (10:44)
[2024-09-28] MEDS ORDERED: ePHEDrine 50 MG/ML 1 ML VIAL ONE (10:44)
[2024-09-28] MEDS ORDERED: ROCURONIUM 10 MG/ML (5 ML VIAL) IV ONE (10:44)
[2024-09-28] MEDS ORDERED: MIDAZOLAM 2 MG/2 ML VIAL ONE (10:44)
[2024-09-28] MEDS ORDERED: SUCCINYLCHOLINE CHLORIDE 200 MG/10 ML VIAL IV ONE (10:44)
[2024-09-28] MEDS ORDERED: PROPOFOL 10 MG/ML 20 ML VIAL IV ONE (10:44)
[2024-09-28] MEDS ORDERED: NEOSTIGMINE 1 MG/ML 10 ML VIAL ONE (10:44)
[2024-09-28] MEDS: BUPIVACAINE (PF) 0.5% 30 ML VIAL SQ ONE (11:33)
[2024-09-28] MEDS: THROMBIN (BOVINE) 5,000 UNIT VIAL TOPICAL ONE (11:33)
[2024-09-28] MEDS: LIDOCAINE 2%-EPI 1:100,000 20 ML VIAL SQ ONE (11:33)
[2024-09-28] MEDS: LACTATED RINGERS 500 ML IV ONE (11:43)
--- NOTE | 2024-09-28 12:56 | P.OP ---
Date of Procedure: 09/28/24 Preoperative Diagnosis: 1.L4-5 spondylosis and stenosis 2.L4-5 Grade 1 retrolisthesis 3.L4-5 HNP with severe stenosis 4. Lower extremity radiculopathy 5. Neurogenic claudication Postoperative Diagnosis: 1.L4-5 spondylosis and stenosis 2.L4-5 Grade 1 retrolisthesis 3.L4-5 HNP with severe stenosis 4. Lower extremity radiculopathy 5. Neurogenic claudication Procedure(s) Performed: 1. L4-5 POSTEROLATERAL AND INTERBODY FUSION 2. L4-5 INSTRUMENTED FUSION 3. L4-5 LAMINECTOMY, FACETECTOMY AND FORAMINOTOMY FOR NEURAL DECOMPRESSION AND CAGE PLACEMENT 4. INSERTION OF BIOMECHANICAL DEVICE L4-5, CAGE X1 5. USE OF Jildy NAVIGATION FOR ASSISTANCE IN ACCURATE SCREW PLACEMENT USE OF IONM ALL SCREWS TESTING > 20 mA USE OF IO MICROSCOPE MOD22: INCREASED SERVICES DUE TO PATIENTS BODY HABITUS, BMI >51, TECHNICALLITY OF THE CASE AND SEVERITY OF PATHOLOGY NECESSITATING MORE THAN USUAL WORK FOR THESE SERVICES. Implants: -MELVIN RODS AND SCREWS -GLOBUS SABLE CAGE 7-14, 10MM, 15 DEG -MAGNATOS, CONTOUR, ALLOCELL, ARTHROCELL, AUTOGRAFT, DBM Anesthesia: GETA Surgeon: Joseph Patterson Estimated Blood Loss (ml): 100 IV fluids (ml): 1,200 Urine output (ml): 200 Pathology: none sent Condition: stable Disposition: PACU Indications for Procedure: Ms. Bedolla is presenting for evaluation of lumbar pain, LE PAIN AND WEAKNESS. It was my pleasure to have seen and examined Ms. Bedolla. In our visit today we have had a chance to go over subjective complaints, physical examination findings and treatments including the natural course history without intervention and various interventional options. The patients imaging demonstrates: SPONDYLOSIS AT L4-5 WITH RETROLISTHESIS, STNEOSIS AND DEGENERATIVE CHANGES THAT ARE MODERATE TO SEVERE CAUSING CENTRAL AND FORAMINAL STENOSIS THAT IS THE SAME. THERE ARE NO FRACTURES OR OTHER LEISONS NOTED. AT THIS TIME. On physical exam, Ms. Bedolla demonstrates: Patient describes a sharp and shooting lumbar pain that has been ongoing for 10 years and progressing. In addition to her lumbar pain she states it radiates into her bilateral lower extremities, associated with numbness and tingling. Patient states her symptoms are exacerbated with prolonged ambulation, sit to stand, and activities. I have explained to the patient that as their condition progresses it will cause further neurological deficits and eventual paralysis. Based on the patients imaging, physical exam, and the rapid progression and disabling nature of their symptoms, at this time I recommend surgery in the form of a: L4-5 MIS Left PLIBF I discussed the risk and benefits of this procedure at length with Ms. BEDOLLA the patient has agreed to considered pursuing the procedure abovementioned. Prior to surgery, she should follow up with her PCP (Cardio, ID, IM etc) for clearance. Questions were invited and answered, and the patient wishes to proceed as outlined below. Currently, I am recommendin.L4-5 MINMIALLY INVASIVE POSTEROLATERAL AND INTERBODY FUSION (LEFT) Description of Procedure: L4-L5 MIS TLIF GRACE The patient was seen and examined in the preoperative area. All preoperative protocols were followed. Informed consent was obtained, risks and benefits of the procedure were discussed at length. Risks including bleeding infection damage to the surrounding tissue and risk of reoperation were discussed with the patient. Risk of anesthesia up to and including was discussed with the patient. These are outlined in the risk review. They were willing to accept these risks and all the risks of surgery. The patient was given a weight-based dose of antibiotics in the form of 2 g Ancef. The patient was seen and evaluated by the anesthesia team who deemed them fit for surgery. The site was marked, the patient was willing to proceed with the procedure. The patient was transferred to the operative suite by the Department of anesthesia. They were then drifted off to sleep by the department anesthesia and GETA was performed. The patient tolerated this well. Crouch catheter was placed by nursing staff, a-traumatically. Once confirmation of lines and ventilation the patient was transferred to a prone René table very carefully. All bony prominences including wrists, elbows, axilla, chest, hips, and thighs, and feet were padded very well. Special attention was paid to the genitalia, and these were padded accordingly. SCDs were placed on bilateral lower extremities and were connected. Arms were well padded and placed on arm boards up and out in the 90/90 position. Once in position, again we confirmed good ventilation capabilities and that lines were running appropriately. The patients Lumbar spine was then exposed. 1010s were placed outlining the incision site. Standard alcohol was used to clean the incision site and allowed to dry. C-arm was used to needle localize the pedicles at L4-5 and bio-lake the patient and confirm level for incision which was marked with a skin marker. Operative briefing was performed with all teams and everyone in agreement to proceed. The patient was then prepped and draped in a normal sterile fashion. Timeout was then performed, and all parties agreed with the procedure to be performed. Skin nicks made and pins placed in the PSIS on the right for the Melvin tracker. 3D Zheim spin was then registered and confirmed to be accurate. Navigated jamshidi and drill-guide were then used to target pedicles bilaterally at L4 and L5. Once accessed, wires were placed in their void. This was repeated at L5 bilaterally. Skin incision was then made along these wires and a perfect scalpel was used over the wire to create a path and measure screw length. Screws were then placed over wires on the contralateral side. Once the screw was at the back of the body wire was removed. The screws were confirmed to be in good position on AP and lateral. We then tested screws and they all tested above 20 mA. Attention was then turned to interbody fusion at L4-5. Tubular retractor system was placed at the interspace of L4-5 using a biplanar c arm. Once in position and dilated up to 26mm tube it was locked to the bed and confirmed in good position. Microscope was then brought in for visualization. Limited myomectomy was performed and laminectomy, complete facetectomy and foraminotomy performed at L4-5 using high speed ezekiel and Kerrison rongeur. The ligamentum was removed and the dural sac decompressed. Exiting and traversing roots visualized and decompressed. Neural elements were then protected, and disc space accessed with an osteotome. Sequential shaving then done under lateral imaging and complete discectomy performed using emperatriz, pituitary and curettes. Once good bleeding endplates accomplished and good height mandaen with trials, a combination of autograft, allograft and synthetic placed anterior in the disc space. The cage was then selected and impacted into place under lateral imaging. The cage was then expanded restoring height, lordosis and alignment. The cage was backfilled with bone graft through a funnel. The cane flume chute operator was removed and the area inspected. Good cage placement, stable cage and no injuries. Area was irrigated copiously, and meticulous hemostasis achieved. The tubular retractor was then removed under direct visualization. Screws were then selected and placed over the previously placed wires on the ipsilateral side. This was done in the fashion described above. Screws were then tested, and all tested above 20 mA. Shells were then placed on the tabs. Miguel length was then measured, and rods selected. They were then placed through the MIS tabs, subfascial and locked into L5 bilateral and sequentially reduced into L4 for listhesis reduction. These were then locked into place with set screws and finally tightened. Miguel holders removed and images taken showing good placement of rods, good lordosis and mandaen of height. Tabs were broken off. Wounds were then copiously irrigated with NSS. Streetman used for TP decortication and mixture of MagnatOs, allograft and autograft packed posterolateral. Fascia was then closed with 0 Vircyl on a Scorpion suture passer for MIS closure. Deep subq closed with 0 Vicryl. Superficial subq closed with 2-0 Vicryl and skin with belle. Wound edges approximated very well. Wound was then cleaned with alcohol and dried. Wounds dressed in Optifoam dressings. The patient was then transferred off the table back to their hospital bed a- traumatically. They were extubated by the department of anesthesia. They were then transferred to PACU in stable condition having tolerated the procedure with no complications.
[2024-09-28] MEDS ORDERED: MAGNESIUM HYDROXIDE 2,400 MG/30 ML CUP PO PRN (14:05)
[2024-09-28] MEDS ORDERED: HYDROmorphone 0.5 MG/0.5 ML SYRINGE IVP PRN ×2 (14:05→20:03)
[2024-09-28] MEDS ORDERED: ONDANSETRON 4 MG/2 ML VIAL IVP PRN (14:05)
[2024-09-28] MEDS ORDERED: HYDROmorphone 1 MG/ML 1 ML SYRINGE IVP PRN (14:05)
[2024-09-28] MEDS ORDERED: HYDROcodone/APAP 7.5-325MG 1 EACH TAB PO PRN (14:07)
[2024-09-28] MEDS: GABAPENTIN 300 MG CAP PO SCH (15:53)
[2024-09-28] MEDS: HYDROcodone/APAP 10-325MG 1 EACH TAB PO PRN (15:54)
[2024-09-28] MEDS: ACETAMINOPHEN TAB 325 MG TAB PO SCH (16:58)
[2024-09-28] MEDS ORDERED: fentaNYL (PF) 50 MCG/ML 2 ML AMP IVP PRN (20:03)
[2024-09-28] MEDS ORDERED: MIDAZOLAM 2 MG/2 ML VIAL IV PRN (20:03)
[2024-09-28] MEDS: DEXAMETHASONE SOD PHOSPHATE 4 MG/ML 1 ML VIAL IV ONE (20:13)
[2024-09-28] MEDS: ONDANSETRON 4 MG/2 ML VIAL IVP ONE (20:13)
[2024-09-28] MEDS: KETOROLAC 15 MG/ML 1 ML VIAL IVP PRN (20:14)
--- NOTE | 2024-09-28 20:39 | FL ---
Fluoroscopy INDICATION: Pain FINDINGS: Fluoroscopy time: 41 seconds. Total dose area product (DAP) in uGy*m?, mGy*cm? (or similar): 741.82 Images obtained: 7. IMPRESSION: 1. Documentation of fluoroscopy. [facility], , 09/28/2024 8:36 PM
--- NOTE | 2024-09-28 21:11 | P.CONS ---
History of Present Illness - Reason for Consult Consult date: 09/28/24 Medical management Requesting physician: Joseph Patterson - Chief Complaint Back surgery - History of Present Illness I am covering for Dr. Vamshi Akhtar who was not feeling well today. He had called me this evening. Pleasant 69-year-old patient, follows at the clinic at the [facility]. Chronic medical conditions include asthma, fibromyalgia, GERD, hypertension hyperlipidemia osteoarthritis obstructive sleep apnea does not use CPAP IBS anxiety depression. Prior to surgery was having significant low back pain with radiculopathy. Was using a walker. Had failed conservative management. Also neurogenic claudication. Patient underwent surgical intervention of the same. This is in the L4-L5 area. Postprocedure laying in bed. Some pain is present. No nausea vomiting. Did tolerate some diet. No chest pain or shortness of breath. Review of systems: GEN.: Tired EYES: None HEENT: None NECK: None RESPIRATORY: None CARDIOVASCULAR: None GASTROINTESTINAL: None GENITOURINARY: Crouch catheter removed e MUSCULOSKELETAL: Joint pains including lower back] LYMPHATICS: None HEMATOLOGICAL: None PSYCHIATRY: None NEUROLOGICAL: Using a walker prior to surgery e Social history: No smoking no alcohol Physical examination: VITAL SIGNS: 97.7, 80, 17, 119 x 62, 93% room air GENERAL: BMI 51, reclining bed awake not in distress. EYES: Pupils equal. Conjunctiva bhupinder l. HEENT: External appearance of nose and ears normal, oral cavity grossly normal. NECK: JVD not raised; masses not palpable. HEART: First and second heart sounds are normal; no edema. LUNGS: Respiratory rate normal; clear to auscultation. ABDOMEN: Soft, nontender, liver spleen not palpable, no masses palpable. PSYCH: Alert and oriented x3; mood and affect bhupinder l. MUSCULOSKELETAL:No Clubbing/cyanosis;muscles-grossly intact. Evidence of OA. Dressing over surgical site. NEUROLOGICAL: Cranial nerves grossly intact; no facial asymmetry, power and sensation grossly intact. LYMPHATICS: No lymph nodes palpable in the axilla and neck INVESTIGATIONS, reviewed in the clinical context: No labs Assessment plan: -L4-L5 spondylosis stenosis lower extremity radiculopathy and neurogenic claudication. Patient underwent surgical intervention at that site by Dr. Patterson today on September 28, 2024. Pain management per orthopedic team. Activity per them. -Chronic insomnia Trazodone -Anxiety depression Trazodone. BuSpar. Cymbalta. -Essential hypertension Zestril 20 mg a day-hold for now. Toprol XL 25 mg a day -Hypothyroid Synthroid 100 mcg a day -GERD Protonix 40 mg a day -Hyperlipidemia Zocor 40 mg nightly -Chronic bladder dysfunction with incontinence Flomax 0.8 mg a day -Primary osteoarthritis -Morbid obesity BMI 51 Weight loss measures Care was discussed with patient. Questions answered. Will check labs in the morning. Past Medical History Past Medical History: Asthma, Chest Pain / Angina, Fibromyalgia, GERD/Reflux, Hyperlipidemia, Hypertension, Osteoarthritis (OA), Skin Disorder, Sleep Apnea/CPAP/BIPAP, Thyroid Disorder Additional Past Medical History / Comment(s): Chronic back pain. no cpap used currently, IBS, hx colitis, gets dry scaley areas History of Any Multi-Drug Resistant Organisms: None Reported Past Surgical History: Hysterectomy, Joint Replacement, Tubal Ligation Additional Past Surgical History / Comment(s): cervical fusion, dimas total knee replacement. Past Anesthesia/Blood Transfusion Reactions: No Reported Reaction Additional Past Anesthesia/Blood Transfusion Reaction / Comm: no hx blood transfusion Past Psychological History: Anxiety, Depression Additional Psychological History / Comment(s): "major depressions' Smoking Status: Never smoker Past Alcohol Use History: None Reported Past Drug Use History: None Reported - Past Family History Mother Sister(s) Family Medical History: Cancer Additional Family Medical History / Comment(s): breast,uterine,cervical Brother(s) Family Medical History: Cancer Sister(s) Family Medical History: Cancer Additional Family Medical History / Comment(s): 3 sisters had cancer. Oldest had bone cancer at age 13, other 2 had breast cancer. Mother Family Medical History: Cancer Additional Family Medical History / Comment(s): Breast cancer. Medications and Allergies Home Medications Medication Instructions Recorded Confirmed Type Levothyroxine Sodium [Synthroid] 100 mcg PO DAILY 03/04/18 09/28/24 History lisinopriL [Zestril] 20 mg PO DAILY 03/04/18 09/28/24 History [place]-3 Fatty Acids/Fish Oil [Fish 1,000 mg PO DAILY 02/18/19 09/28/24 History Oil 1,000 mg Softgel] Pantoprazole [Protonix] 40 mg PO DAILY 02/18/19 09/28/24 History Metoprolol Succinate [Toprol XL] 25 mg PO DAILY 03/31/19 09/28/24 History Aspirin [Adult Low Dose Aspirin EC] 81 mg PO DAILY 04/02/19 09/28/24 History Cyclobenzaprine [Flexeril] 5 mg PO TID 09/22/20 09/28/24 History Simvastatin [Zocor] 40 mg PO HS 09/22/20 09/28/24 History traZODone HCL 300 mg PO HS 09/22/20 09/28/24 History Tamsulosin [Flomax] 0.8 mg PO DAILY 10/21/23 09/28/24 History DULoxetine HCL [Cymbalta] 60 mg PO DIRECTED 01/11/24 09/28/24 History busPIRone HCL 15 mg PO BID 01/11/24 09/28/24 History Albuterol Inhaler [Ventolin Hfa 1 - 2 puff INHALATION Q6H PRN 09/23/24 09/28/24 History Inhaler] Gabapentin 600 mg PO TID 09/23/24 09/28/24 History Loratadine 10 mg PO DAILY 09/23/24 09/28/24 History Magnesium Citrate and Oxide 500 mg PO DAILY 09/23/24 09/28/24 History [Magnesium] Stool Softener (Unk) 1 - 2 tab PO DAILY PRN 09/23/24 09/28/24 History Allergies Allergy/AdvReac Type Severity Reaction Status Date / Time Penicillins Allergy Rash/Hives/ Verified 09/28/24 09:38 Swelling Tetracyclines Allergy Dyspnea/asa Verified 09/28/24 09:38 h Physical Exam Vitals: Vital Signs Temp Pulse Pulse Resp BP BP Pulse Ox 09/28/24 19:26 97.7 F 80 17 119/62 93 L 09/28/24 16:14 16 09/28/24 14:50 76 16 117/61 98 09/28/24 14:35 73 16 109/59 96 09/28/24 14:20 73 16 106/58 99 09/28/24 14:07 71 16 101/59 100 09/28/24 13:52 69 16 96/52 96 09/28/24 13:36 69 16 93/51 97 09/28/24 13:21 97 F L 71 16 102/55 98 09/28/24 09:36 97 F L 90 18 145/67 96 Intake and Output 09/28/24 09/28/24 09/28/24 06:59 14:59 22:59 Intake Total 2350 50 Output Total 130 125 Balance 2220 -75 Intake: IV 2350 50 Output: Urine 30 125 Estimated Blood Loss 100 Other: Weight 118.4 kg 118.4 kg
[2024-09-28] MEDS: CYCLOBENZAPRINE 5 MG TAB PO SCH (22:00)
[2024-09-28] MEDS: busPIRone HCl 5 MG TAB PO SCH (22:00)
[2024-09-28] MEDS ORDERED: NON FORMULARY DRUG (Gabapentin [Gabapentin] 600 MG Tablet) PO SCH (22:00)
[2024-09-28] MEDS: LACTATED RINGERS 1,000 ML IV SCH (22:00)
[2024-09-28] MEDS: traZODone HCL 100 MG TAB PO SCH (22:00)
[2024-09-28] MEDS: ATORVASTATIN 20 MG TAB PO SCH (22:00)
[2024-09-28] MEDS: DULoxetine HCL 60 MG CAPSULE.DR PO SCH (22:30)
[2024-09-28] MEDS: TAMSULOSIN 0.4 MG CAP.ER.24H PO STA (23:20)
[2024-09-29 05:33] LABS: ALT 21 U/L (4-34); AST 38 U/L (14-36); African American GFR (CKD) >90 (>60 ml/min/1.73 sqM); Albumin 4.3 g/dL (3.5-5.0); Alkaline Phosphatase 56 U/L (38-126); Anion Gap 9 mmol/L; Blood Urea Nitrogen 8 mg/dL (7-17); Carbon Dioxide 27 mmol/L (22-30); Chloride 101 mmol/L (98-107); Globulin 2.2 g/dL; Glucose 102 mg/dL (74-99); Non-African American GFR(CKD) 86 (>60 ml/min/1.73 sqM); Potassium 4.1 mmol/L (3.5-5.1); Sodium 137 mmol/L (137-145); Total Bilirubin 0.4 mg/dL (0.2-1.3); Total Protein 6.5 g/dL (6.3-8.2)
[2024-09-29] MEDS: LEVOTHYROXINE 100 MCG TAB PO SCH (05:49)
[2024-09-29] MEDS: SENNOSIDES-DOCUSATE SODIUM 1 EACH TAB PO SCH (08:40)
[2024-09-29] MEDS: ASPIRIN 81 MG PO SCH (08:40)
[2024-09-29] MEDS: TAMSULOSIN 0.4 MG CAP.ER.24H PO SCH (08:41)
[2024-09-29] MEDS: PANTOPRAZOLE 40 MG TABLET PO SCH (08:41)
[2024-09-29] MEDS: polyethylene glycoL 3350 17 GM POWD.PACK PO SCH (08:41)
[2024-09-29] MEDS: METOPROLOL SUCCINATE (ER) 25 MG TAB.ER.24H PO SCH (08:41)
--- NOTE | 2024-09-29 08:43 | CT ---
EXAMINATION TYPE: CT lumbar spine wo con DATE OF EXAM: 09/29/2024 8:37 AM COMPARISON: 07/05/2024. CLINICAL INDICATION: Female, 69 years old with history of s/p lumbar fusion; PHH, s/p lumbar fusion TECHNIQUE: Multiple axial images were obtained from the midportion of T11 through the sacroiliac angelina nts. Soft tissue and bone windows in coronal and sagittal planes were obtained and reviewed. Contrast used: mL of , (None, if empty). Oral contrast used: (None, if empty). CT DLP: 1732.4 mGycm, Automated exposure control for dose reduction was used. FINDINGS: Postsurgical changes to the lumbar spine with fixation hardware at L4 and L5 . Discectomy at L4-L5. H ardware limits evaluation at these levels. Hardware appears intact. No evidence of fracture. Postsurgical changes in the soft tissues with foci of gas present. Posterior back skin belle are p resent. IMPRESSION: Postsurgical changes without evidence of immediate post operative complication. [facility], , 09/29/2024 8:41 AM
[2024-09-29] MEDS: ALBUTEROL NEBULIZED 2.5 MG/3 ML INHALATION PRN (08:56)
[2024-09-29] MEDS ORDERED: lisinopriL 20 MG TAB PO SCH (09:00)
[2024-09-29 09:39] LABS: Basophils # (A) 0.04 X 10*3/uL (0.00-0.10); Basophils % (A) 0.4 %; Eosinophils # (A) 0.06 X 10*3/uL (0.04-0.35); Eosinophils % (A) 0.5 %; HCT 33.9 % (37.2-46.3); HGB 10.8 g/dL (12.0-15.0); Lymphocytes # (A) 1.71 X 10*3/uL (0.90-5.00); Lymphocytes % (A) 15.3 %; MCH 30.2 pg (27.0-32.0); MCHC 31.9 g/dL (32.0-37.0); MCV 94.7 FL (80.0-97.0); Mean Platelet Volume 10.5 FL (9.5-12.2); Monocytes # (A) 0.82 X 10*3/uL (0.20-1.00); Monocytes % (A) 7.3 %; NRBC Per 100 WBC 0 X 10*3/uL (0.00-0.01); Neutrophils # (A) 8.51 X 10*3/uL (1.80-7.70); Neutrophils % (A) 76.1 %; Platelet Count 248 X 10*3/uL (140-440); RBC 3.58 X 10*6/uL (4.10-5.20); RDW 12.9 % (11.5-14.5); WBC 11.19 X 10*3/uL (4.50-10.00)
--- NOTE | 2024-09-29 13:17 | P.PN ---
Subjective Progress Note Date: 09/29/24 Principal diagnosis: Status post L4-L5 MIS TLIF Patient evaluated today at bedside, she is up sitting in her hospital chair, her sister is present. Patient is very fatigued at bedside, she seemed to be falling asleep during exam. Patient did answer most my questions accurately. Patient normally takes Flexeril and gabapentin at home, she has been taking some oral narcotics since being in the hospital. Patient denies any headaches, lightheadedness, chest pain or shortness of breath. She did admit to some dizziness and almost vertigo-like symptoms. Patient also notes shaking in the bilateral upper extremities, she states that this was present prior to the surgery on occasion, it seems to be more noticeable after surgery. Patient has been urinating with no issues at this time, catheter was removed. Patient did rather well with physical therapy today. Objective - Vital Signs Vital signs: Vital Signs Temp 98.0 F 09/29/24 08:05 Pulse 80 09/29/24 09:09 Resp 18 09/29/24 08:05 BP 113/70 09/29/24 08:05 Pulse Ox 93 L 09/29/24 08:05 FiO2 Intake & Output 09/28/24 09/29/24 09/29/24 18:59 06:59 18:59 Intake Total 2400 650 Output Total 255 Balance 2145 650 Weight 118.4 kg Intake: IV 2400 Intake, IV Titration 650 Amount Lactated Ringers 1,000 ml 600 @ 20 mls/hr IV .Q24H WILL[facility] Rx#:[id number] ceFAZolin 2 gm In Sodium 50 Chloride 0.9% 50 ml @ 100 mls/hr IVPB Q8H WILLIS Rx#: [id number] Output: Urine 155 Estimated Blood Loss 100 Other: # Voids 1 - Exam Gen: AOx3, NAD VSS stable at this time Integument: Postop dressing in good position and condition, belle are stable at this time Palpation: Mild tenderness with palpation of the lower lumbar spine ROM: Full range of motion of major muscle groups of the bilateral upper and lower extremities, no focal deficits appreciated Sensory Exam: Senory exam to light touch is intact C5-T1 Senosry exam to light touch is intact L2-S1 Motor: 4+/5 strength appreciated bilateral lower extremities with hip flexion, knee extension, knee flexion, plantarflexion, dorsiflexion, EHL, FHL Reflexes: 2/4 in all UE and LE Negative Kristen's bilaterally Negative Babinski bilaterally Clonus bilaterally - Labs CBC & Chem 7: 09/29/24 04:22 09/29/24 04:22 Labs: Abnormal Lab Results - Last 24 Hours (Table) 09/29/24 09/29/24 Range/Units 04:22 04:22 WBC 11.19 H (4.50-10.00) X 10*3/uL RBC 3.58 L (4.10-5.20) X 10*6/uL Hgb 10.8 L (12.0-15.0) g/dL Hct 33.9 L (37.2-46.3) % MCHC 31.9 L (32.0-37.0) g/dL Immature Gran # 0.05 H (0.00-0.04) X 10*3/uL Neutrophils # 8.51 H (1.80-7.70) X 10*3/uL Glucose 102 H (74-99) mg/dL AST 38 H (14-36) U/L Assessment and Plan Assessment: Postoperative day #1 status post L4-L5 MIS TLIF Plan: Pain control, did discuss with nursing today a altered regimen. We will make sure the Flexeril is as needed at this time. She will continue with the gabapentin. We will be very cautious with the narcotics at this time. DVT prophylaxis, aspirin 81 mg daily Wound care, Optifoam dressings to be placed by nursing at bedside Weight-bear as tolerated, recommend walker at all times Encourage incentive spirometer Medical recommendations appreciated Discharge planning: Would like to keep patient in hospital for an additional day to monitor physical activity and pain control. Time with Patient: Less than 30
[2024-09-29] MEDS: HYDROcodone/APAP 5-325MG 1 EACH TAB PO PRN (15:03)
--- NOTE | 2024-09-29 15:10 | P.PN ---
Subjective Progress Note Date: 09/29/24 Subjective: 09/28/2024: Patient is a 69-year-old female who follows at the clinic at the [facility]. Chronic medical conditions include asthma, fibromyalgia, GERD, hypertension hyperlipidemia osteoarthritis obstructive sleep apnea does not use CPAP IBS anxiety depression. Prior to surgery was having significant low back pain with radiculopathy. Was using a walker. Had failed conservative management. Also neurogenic claudication. Patient underwent surgical intervention of the same. This is in the L4-L5 area. Post-procedure laying in bed. Some pain is present. No nausea vomiting. Did tolerate some diet. No chest pain or shortness of breath. 09/29/2024: Patient seen and evaluated bedside. Patient states pain is still present but feels better overall. No bowel movement this morning. Denies nausea, vomiting. Pertinent positives and negatives as discussed above, a complete review of systems was performed and all other systems are negative. Vitals: Signs Reviewed Physical Exam: General: nontoxic, no distress, appears at stated age, obese Derm: warm, dry, intact Head: atraumatic, normocephalic, symmetric Eyes: EOMI, anicteric sclera Mouth: no lip lesion, mucus membranes moist Cardiovascular: S1 S2 reg, no murmur, rubs, or gallops Lungs: CTA bilateral, no rhonchi, no rales, no accessory muscle use Abdominal: soft, non-tender to palpataion, no appreciable organomegaly MSK: Dressing over surgical site Extremities: no gross muscle atrophy, no edema, no contractures Neuro: Alert, Oriented, CNII-XII grossly intact, gait normal Psych: well appearing, appropriate affect Assessment and Plan: Patient is a 69-year-old female status post L4-5 posterolateral and interbody fusion by Dr. Patterson, postop day 1. #. Chronic insomnia Continue with trazodone 300 mg PO nightly #. Anxiety/depression Continue with trazodone 300 mg PO nightly Continue BuSpar 15 mg PO twice daily Continue with Cymbalta 60 mg PO twice daily #. Hypertension Zestril 20 mg PO daily, hold Toprol-XL 25 mg PO daily #. Hypothyroidism Synthroid 100 mcg PO daily #. GERD Protonix 40 mg PO daily #. Hyperlipidemia Zocor 40 mg nightly #. Chronic bladder dysfunction with incontinence Flomax 0.8 mg a day #. L4-L5 spondylosis stenosis lower extremity radiculopathy and neurogenic claudication Leukocytosis, anticipated outcome of surgery Mild acute blood loss anemia, anticipated outcome of surgery Status post L4-5 posterolateral and interbody fusion by Dr. Patterson, postop day 1 Pain management and bowel regimen per orthopedic Care was discussed with patient. She is medically optimized for discharge. Will continue to follow for remainder of admission. Code status: Full code Edward Franco MD PGY-1 IM Dictation was produced using [employer] dictation software. please excuse any grammatical, word or spelling errors. I have seen and evaluated the patient today. Discussed with the resident and agree with the residents finding and plan as documented in the resident's note. Changes highlighted in blue font. Objective - Vital Signs Vital signs: Vital Signs Temp 98.0 F 09/29/24 01:16 Pulse 76 09/29/24 01:16 Resp 17 09/29/24 01:16 BP 130/68 09/29/24 01:16 Pulse Ox 90 L 09/29/24 01:16 FiO2 Intake & Output 09/28/24 09/29/24 09/29/24 18:59 06:59 18:59 Intake Total 2400 650 Output Total 255 Balance 2145 650 Weight 118.4 kg Intake: IV 2400 Intake, IV Titration 650 Amount Lactated Ringers 1,000 ml 600 @ 20 mls/hr IV .Q24H WILLIS Rx#:[id number] ceFAZolin 2 gm In Sodium 50 Chloride 0.9% 50 ml @ 100 mls/hr IVPB Q8H WILLIS Rx#: [id number] Output: Urine 155 Estimated Blood Loss 100 Other: # Voids 1 - Labs CBC & Chem 7: 09/29/24 04:22 09/29/24 04:22 Labs: Abnormal Lab Results - Last 24 Hours (Table) 09/29/24 Range/Units 04:22 Glucose 102 H (74-99) mg/dL AST 38 H (14-36) U/L
[2024-09-30] MEDS: CYCLOBENZAPRINE 5 MG TAB PO PRN (02:25)
[2024-09-30 07:36] LABS: Basophils % (A) 0 %; Eosinophils % (A) 0 %; HCT 30.4 % (34.0-46.0); HGB 10.1 gm/dL (11.4-16.0); Lymphocytes # (A) 1.4 k/uL (1.0-4.8); Lymphocytes % (A) 13 %; MCH 30.4 pg (25.0-35.0); Mean Platelet Volume 7.4; Monocytes # (A) 0.7 k/uL (0-1.0); Monocytes % (A) 6 %; Neutrophils # (A) 8.7 k/uL (1.3-7.7); Neutrophils % (A) 79 %; Platelet Count 218 k/uL (150-450); RBC 3.31 m/uL (3.80-5.40); RDW 12.8 % (11.5-15.5)
[2024-09-30 07:47] LABS: ALT 32 U/L (4-34); AST 52 U/L (14-36); African American GFR (CKD) >90 (>60 ml/min/1.73 sqM); Albumin 3.5 g/dL (3.5-5.0); Albumin/Globulin Ratio 1.5; Alkaline Phosphatase 75 U/L (38-126); Anion Gap 2 mmol/L; Blood Urea Nitrogen 7 mg/dL (7-17); Calcium 8.7 mg/dL (8.4-10.2); Carbon Dioxide 32 mmol/L (22-30); Chloride 101 mmol/L (98-107); Globulin 2.3 g/dL; Glucose 132 mg/dL (74-99); Magnesium 1.8 mg/dL (1.6-2.3); Non-African American GFR(CKD) >90 (>60 ml/min/1.73 sqM); Potassium 4.3 mmol/L (3.5-5.1); Sodium 135 mmol/L (137-145); Total Bilirubin 0.6 mg/dL (0.2-1.3); Total Protein 5.8 g/dL (6.3-8.2)
--- NOTE | 2024-09-30 12:33 | P.DS ---
Providers Date of admission: 09/28/2024 Expected date of discharge: 09/30/24 Attending physician: Joseph Patterson DO Consults: 09/28/24 14:08 Consult Physician Routine Consulting Provider: Ming Ramon Consult Reason/Comments: Medical Management Do you want consulting provider notified?: Yes Primary care physician: [facility] Course: Date of admission: 09/28/2024 Date of discharge: 09/30/2024 Admission diagnosis: 1.L4-5 spondylosis and stenosis 2.L4-5 Grade 1 retrolisthesis 3.L4-5 HNP with severe stenosis 4. Lower extremity radiculopathy 5. Neurogenic claudication Discharge diagnosis: Same Attending physician: Dr. Patterson Surgical procedures: L4-5 posterior lateral interbody fusion Brief history: Patient is a 69-year-old female with a history of L4-5 spondylosis and stenosis; L4-5 spondylolisthesis; lower extremity radiculopathy; neurogenic claudication. At this point patient has failed conservative treatment measures and has opted to proceed with a elective L4-5 posterior lateral interbody fusion. Hospital course: Details of patient's surgery can be found in operative report. Patient tolerated the procedure well and was subsequently transported to orthopedic floor. Patient's orthopeidc and medical care was provided daily. Patient had daily laboratory tests performed for evaluation of overall blood counts. Patient had daily physical therapy to include strengthening range of motion as well as education with walker ambulation. Patient was treated with aspirin for their postoperative DVT prophylaxis during their inpatient stay. Patient was noted to have a relatively uneventful postoperative course. Patient reported satisfactory pain control with oral pain medications by postoperative day 2. Patient showed satisfactory progress with physical therapy. Patient moved steadily through the program and had no difficulty meeting the goals by postoperative day 2. Given patient's otherwise satisfactory course and having met physical therapy goals, plan is to discharge patient home on postoperative day 2. Discharge condition/disposition: Patient will be discharged home in stable condition. Discharge medications: Instructions are given on resumption of patient's normal daily medications per primary care recommendation, in addition patient will be prescribed [place]; Flexeril; senna; Duricef. Spine Discharge and Recovery Instructions Date of Surgery: 09/28/2024 Diagnosis: 1.L4-5 spondylosis and stenosis 2.L4-5 Grade 1 retrolisthesis 3.L4-5 HNP with severe stenosis 4. Lower extremity radiculopathy 5. Neurogenic claudication Procedure: L4-5 posterior lateral interbody fusion Medications: See medication list All medication refills should be obtained through your primary care doctor or your clinic spine surgeon. Please discuss prescription refills at your follow up appointment. Do not call the hospital for medication refills. Dressing: Leave your dressing in place for a total of 5 days post operatively. Then you may remove your dressing and leave open to air. Keep the area clean and if not able to keep area clean, then cover with sterile gauze and tape. Showering: You may shower 3 days after your procedure allowing soap and water to run over incision. Do not scrub. Do not soak. Blot dry. Follow up: Please confirm a follow up appointment with your surgeon 3 weeks post operatively. Please make an appointment to follow up with your PCP in 1-2 weeks after surgery for evaluation '3 phase, 3-week plan' POST OP WEEKS 1-3 1. Lifting/carrying/pushing/pulling limited to less than 5 pounds. 2. Do not sit for longer than 15 minutes at one time. Get up and walk around. Prolonged sitting is NOT advised. If you lay down, see if you can tolerate laying down on you front (belly side) 3. Walk for periods of 15 minutes = 1 mile but no longer; do it multiple times times each day. 4. Ice your low back after activity. POST OP WEEKS 3-6 1. Lifting limited to less than 20 pounds. 2. Do not sit for longer than 30 minutes at a time. Frequently change positions. Use a sit-to stand workstation or take frequent breaks from sitting if you have returned to work. 3. Walk for 30 minutes each day. If possible, do these three or more times a day POST OP WEEKS 6+ At your 6-week appointment we will give you a physical therapy referral to focus on a core stabilization and strengthening program. You should also work on leg & buttock strengthening, hamstring & quadriceps stretching, and continue a low impact aerobic activity program such as swimming, walking, or riding a stationary bicycle. During the initial 6 weeks after your surgery, you are at the highest risk of re-injuring your spine. You should generally avoid BLT's (bending, lifting and twisting combination motions) and follow the above guidelines to reduce the chance of reinjury. You can anticipate post op appointments in our office at approximately 3 weeks and 6 weeks after your surgery. INCISION CARE: If your incision is not draining you do NOT need to cover it with a dressing. Keep your incision clean, dry and intact. In most cases, we apply skin glue, belle or sutures to the incision at the time of surgery. This will be like a crust or have the appearance of a scab and will fall off in time on its own. The stitches or belle need to be removed at 3 weeks post op appointment. You may begin to shower 3 days after surgery (this allows the glue to yates well). However, please avoid scrubbing the incision site or peeling off any of the skin glue. This will ensure optimal healing of your incision. Also, during this time avoid soaking the incision area in water - this includes swimming pools, hot tubs or baths. No ointments, lotions or oils on the incision until your surgeon allows. Leave belle, sutures or glue in place. Neurological dysfunction that comes on suddenly can also be a sign of a stroke. Below some common symptoms of a stroke are listed: B - balance difficulty such as sudden onset walking or leaning to one side - NEW E - eye problem such as sudden double vision or trouble seeing on one side - NEW F - Facial weakness or numbness on one side - NEW A - Arm or leg weakness or numbness on one side - NEW S - Slurred speech or difficulty with word finding - NEW T - Time is BRAIN! Call 911 as soon as you recognize these symptoms Diet: Consume a regular diet rich in vegetables and lean protein such as chicken or fish. You should consume in a ratio of approximately 20% fats|40% carbohydrates|40%protein. Vegetables, sweet potatoes, brown rice or quinoa are examples of good carbohydrates. Chips, white bread, cookies and sweets/sugar are examples of bad carbohydrates. Limit your bad carbs, go wild with good carbs. "Life's Simple 7" Guidelines as per [place] [employer] These will help you reclaim your life after surgery and lead burner helper in your recovery, keeping in mind your restrictions. (1) Get Active. Physical activity can help people lose weight, control high blood pressure and cholesterol, feel emotionally better, and sleep better. (2) Control Cholesterol. Avoid a diet high in saturated fat, trans fat, & cholesterol. Limit whole milk & cream, ice cream, butter, egg yolks, processed meats (like sausage and hot dogs), and fatty meats. Choose healthy foods that are low in saturated fat, trans fat and cholesterol which include: Fruits and vegetables, fiber rich grain products (like whole grain pasta and brown rice), lean meat such as chicken, fish, nuts, seeds, and legumes. (3) Eat Better. Eat small portions. Shop at the grocery with a list and do not stray from it. Tips for a healthy diet include: Limit sodium intake to less than 1500mg daily, avoid prepackaged, processed, and fast foods, choose a diet rich in fruits, vegetables, and whole grain, high fiber foods, and limit saturated & cholesterol in your diet. (4) Manage Blood Pressure. If you have high blood pressure, you should have a cuff at home so that you can check your blood pressure regularly. Be sure you have a good cuff. An arm one is generally better than a wrist one. Bring the cuff to a doctor's appointment to validate that the measurements that your cuff are taking are accurate. Take your blood pressure twice daily when you are sitting down and relaxing. Record the numbers in a log and bring this log with you to your doctors' appointments. (5) Lose Weight if your BMI is above 25. A healthy BMI is between 19-25. To calculate Your BMI, you may use a Standard BMI Calculator on the NIH BMI website: <www.nhlbi.nih.gov/guidelines/obesity/BMI/bmicalc.htm>. Weigh oneself daily. If you are overweight, set a goal to lose weight. A pound a week loss if needed is a good target. (6) Reduce Blood Sugar. Limit foods and liquids with "added sugars." (Added sugars include sucrose, fructose, glucose, maltose, dextrose, high fructose corn syrup, corn syrup, concentrated fruit juice and honey). (7) Stop Smoking. If you smoke, quitting smoking is one of the best things that you can do for your health. Smoking increases your risk of heart attack, stroke, and peripheral vascular disease, which is a build-up of plaque in your arteries. Please discard all the cigarettes and lighters in your house. Have a plan for what you will do when you have the urge to smoke. Direct and second- hand smoke shortens your life as well as the lives of your family, friends and others around you. For your health and the health of those around you, please consider quitting! Proper Bending Body Mechanics: Maintain a wide stance with one foot slightly in front of the other. Keep your back straight. Bend utilizing the strength in your hips and knees. Do not bend at the waist. Maintain the lifted object at your waist-level close to your body. Avoid lifting weight that causes immediately pain or pain anywhere in the body afterwards. Smoking/Nicotine If there was ever one thing that you could do to increase your overall health, decrease your risk of cardiovascular problems by about 39% the second you make the choice, it is to STOP SMOKING. Your body's most instant gratification is the second you stop smoking. We have all heard the studies, read the articles but it is true, smoking is extremely bad for your overall health, and moreover it is detrimental to your bone health. Nicotine, IN ANY FORM, kills bone cells, prevents your body from healing fractures, and significantly prolongs healing after surgery. In spine surgery specifically, it increases your risk of not healing your bones to create a fusion and increases your risk of having a revision surgery due to this up to 60%. I know it is hard. I know it feels impossible. But there are ways. Take control of your life. We are here to help you through it. And when you are ready, ask us and we can direct you to help if you desire. Use the START Plan to Quit Smoking (please visit the HelpguAscenz.org website listed below for more information): S = Set a quit date. Choose a date within the next 2 weeks, so you have enough time to prepare without losing your motivation to quit. If you mainly smoke at work, quit on the weekend, so you have a few days to adjust to the change. T = Tell family, friends, and co-workers that you plan to quit. Let your friends and family in on your plan to quit smoking and tell them you need their support and encouragement to stop. Look for a quit arielle who wants to stop smoking as well. You can help each other get through the rough times. A = Anticipate and plan for the challenges you'll face while quitting. Most people who begin smoking again do so within the first 3 months. You can help yourself make it through by preparing ahead for common challenges, such as nicotine withdrawal and cigarette cravings. R = Remove cigarettes and other tobacco products from your home, car, and work. Throw away all your cigarettes (no emergency pack!), lighters, ashtrays, and matches. Wash your clothes and freshen up anything that smells like smoke. Shampoo your car, clean your drapes and carpet, and steam your furniture. T = Talk to your doctor about getting help to quit. Your doctor can prescribe medication to help with withdrawal and suggest other alternatives. If you can't see a doctor, you can get many products over the counter at your local pharmacy or grocery store, including the nicotine patch, nicotine lozenges, and nicotine gum. Resources for Quitting Smoking: <https://www.[place].gov/documents/[facility]/Quit_Tobacco_Resources_for_patients_313 480_7.pdf> Supplementation: Take recommended dosages of Vitamin D and Calcium to help fortify your bones and help them to heal. See your health maintenance packet for dosages and recommended levels. DVT/VTE prophylaxis: You will be given compression stockings from the hospital. Wear these daily for the first two weeks after surgery. You may take them off at night. You may be prescribed a medication to help thin your blood. Take this as directed. If you are not prescribed this medication, early and frequent ambulation has been shown to be the best prophylaxis to deep vein thrombosis and sequelae related to this event. Assessment: 1.L4-5 spondylosis and stenosis 2.L4-5 Grade 1 retrolisthesis 3.L4-5 HNP with severe stenosis 4. Lower extremity radiculopathy 5. Neurogenic claudication Procedures: L4-5 posterior lateral interbody fusion Patient Condition at Discharge: Good Plan - Discharge Summary Discharge Rx Participant: No New Discharge Prescriptions: New cefaDROXiL [Duricef] 500 mg PO Q12HR 5 Days #10 cap Cyclobenzaprine [Flexeril] 5 mg PO TID #21 tablet HYDROcodone/APAP 5-325MG [[place] 5-325] 1 tab PO Q6HR PRN #28 tab PRN Reason: Pain Sennosides/Docusate Sodium [Senna Plus 8.6-50 mg Softgel] 1 each PO DAILY #20 capsule Continue Gabapentin 600 mg PO TID No Action lisinopriL [Zestril] 20 mg PO DAILY Levothyroxine Sodium [Synthroid] 100 mcg PO DAILY Pantoprazole [Protonix] 40 mg PO DAILY [place]-3 Fatty Acids/Fish Oil [Fish Oil 1,000 mg Softgel] 1,000 mg PO DAILY Metoprolol Succinate [Toprol XL] 25 mg PO DAILY Aspirin [Adult Low Dose Aspirin EC] 81 mg PO DAILY traZODone HCL 300 mg PO HS Cyclobenzaprine [Flexeril] 5 mg PO TID Simvastatin [Zocor] 40 mg PO HS busPIRone HCL 15 mg PO BID DULoxetine HCL [Cymbalta] 60 mg PO DIRECTED Albuterol Inhaler [Ventolin Hfa Inhaler] 1 - 2 puff INHALATION Q6H PRN PRN Reason: shortenss of breath Stool Softener (Unk) 1 - 2 tab PO DAILY PRN PRN Reason: Constipation Magnesium Citrate and Oxide [Magnesium] 500 mg PO DAILY Tamsulosin [Flomax] 0.8 mg PO DAILY Loratadine 10 mg PO DAILY Discharge Medication List Levothyroxine Sodium [Synthroid] 100 mcg PO DAILY 03/04/18 [History] lisinopriL [Zestril] 20 mg PO DAILY 03/04/18 [History] [place]-3 Fatty Acids/Fish Oil [Fish Oil 1,000 mg Softgel] 1,000 mg PO DAILY 02/18/19 [History] Pantoprazole [Protonix] 40 mg PO DAILY 02/18/19 [History] Metoprolol Succinate [Toprol XL] 25 mg PO DAILY 03/31/19 [History] Aspirin [Adult Low Dose Aspirin EC] 81 mg PO DAILY 04/02/19 [History] Cyclobenzaprine [Flexeril] 5 mg PO TID 09/22/20 [History] Simvastatin [Zocor] 40 mg PO HS 09/22/20 [History] traZODone HCL 300 mg PO HS 09/22/20 [History] Tamsulosin [Flomax] 0.8 mg PO DAILY 10/21/23 [History] DULoxetine HCL [Cymbalta] 60 mg PO DIRECTED 01/11/24 [History] busPIRone HCL 15 mg PO BID 01/11/24 [History] Albuterol Inhaler [Ventolin Hfa Inhaler] 1 - 2 puff INHALATION Q6H PRN 09/23/24 [History] Gabapentin 600 mg PO TID 09/23/24 [History] Loratadine 10 mg PO DAILY 09/23/24 [History] Magnesium Citrate and Oxide [Magnesium] 500 mg PO DAILY 09/23/24 [History] Stool Softener (Unk) 1 - 2 tab PO DAILY PRN 09/23/24 [History] Cyclobenzaprine [Flexeril] 5 mg PO TID #21 tablet 09/30/24 [Rx] HYDROcodone/APAP 5-325MG [[place] 5-325] 1 tab PO Q6HR PRN #28 tab 09/30/24 [Rx] Sennosides/Docusate Sodium [Senna Plus 8.6-50 mg Softgel] 1 each PO DAILY #20 capsule 09/30/24 [Rx] cefaDROXiL [Duricef] 500 mg PO Q12HR 5 Days #10 cap 09/30/24 [Rx] Follow up Appointment(s)/Referral(s): [facility] [NON-STAFF] - 1 Week Joseph Patterson DO [Doctor of Osteopathic Medicine] - 10/13/24 2:15 pm Patricia Bryant [NON-STAFF] - 1 Week Activity/Diet/Wound Care/Special Instructions: Spine Discharge and Recovery Instructions Date of Surgery: 09/28/2024 Diagnosis: 1.L4-5 spondylosis and stenosis 2.L4-5 Grade 1 retrolisthesis 3.L4-5 HNP with severe stenosis 4. Lower extremity radiculopathy 5. Neurogenic claudication Procedure: L4-5 posterior lateral interbody fusion Medications: See medication list All medication refills should be obtained through your primary care doctor or your clinic spine surgeon. Please discuss prescription refills at your follow up appointment. Do not call the hospital for medication refills. Dressing: Leave your dressing in place for a total of 5 days post operatively. Then you may remove your dressing and leave open to air. Keep the area clean and if not able to keep area clean, then cover with sterile gauze and tape. Showering: You may shower 3 days after your procedure allowing soap and water to run over incision. Do not scrub. Do not soak. Blot dry. Follow up: Please confirm a follow up appointment with your surgeon 3 weeks post operatively. Please make an appointment to follow up with your PCP in 1-2 weeks after surgery for evaluation '3 phase, 3-week plan' POST OP WEEKS 1-3 1. Lifting/carrying/pushing/pulling limited to less than 5 pounds. 2. Do not sit for longer than 15 minutes at one time. Get up and walk around. Prolonged sitting is NOT advised. If you lay down, see if you can tolerate laying down on you front (belly side) 3. Walk for periods of 15 minutes = 1 mile but no longer; do it multiple times times each day. 4. Ice your low back after activity. POST OP WEEKS 3-6 1. Lifting limited to less than 20 pounds. 2. Do not sit for longer than 30 minutes at a time. Frequently change positions. Use a sit-to stand workstation or take frequent breaks from sitting if you have returned to work. 3. Walk for 30 minutes each day. If possible, do these three or more times a day POST OP WEEKS 6+ At your 6-week appointment we will give you a physical therapy referral to focus on a core stabilization and strengthening program. You should also work on leg & buttock strengthening, hamstring & quadriceps stretching, and continue a low impact aerobic activity program such as swimming, walking, or riding a stationary bicycle. During the initial 6 weeks after your surgery, you are at the highest risk of re-injuring your spine. You should generally avoid BLT's (bending, lifting and twisting combination motions) and follow the above guidelines to reduce the chance of reinjury. You can anticipate post op appointments in our office at approximately 3 weeks and 6 weeks after your surgery. INCISION CARE: If your incision is not draining you do NOT need to cover it with a dressing. Keep your incision clean, dry and intact. In most cases, we apply skin glue, belle or sutures to the incision at the time of surgery. This will be like a crust or have the appearance of a scab and will fall off in time on its own. The stitches or belle need to be removed at 3 weeks post op appointment. You may begin to shower 3 days after surgery (this allows the glue to yates well). However, please avoid scrubbing the incision site or peeling off any of the skin glue. This will ensure optimal healing of your incision. Also, during this time avoid soaking the incision area in water - this includes swimming pools, hot tubs or baths. No ointments, lotions or oils on the incision until your surgeon allows. Leave belle, sutures or glue in place. Neurological dysfunction that comes on suddenly can also be a sign of a stroke. Below some common symptoms of a stroke are listed: B - balance difficulty such as sudden onset walking or leaning to one side - NEW E - eye problem such as sudden double vision or trouble seeing on one side - NEW F - Facial weakness or numbness on one side - NEW A - Arm or leg weakness or numbness on one side - NEW S - Slurred speech or difficulty with word finding - NEW T - Time is BRAIN! Call 911 as soon as you recognize these symptoms Diet: Consume a regular diet rich in vegetables and lean protein such as chicken or fish. You should consume in a ratio of approximately 20% fats|40% carbohydrates|40%protein. Vegetables, sweet potatoes, brown rice or quinoa are examples of good carbohydrates. Chips, white bread, cookies and sweets/sugar are examples of bad carbohydrates. Limit your bad carbs, go wild with good carbs. "Life's Simple 7" Guidelines as per [place] [employer] These will help you reclaim your life after surgery and lead burner helper in your recovery, keeping in mind your restrictions. (1) Get Active. Physical activity can help people lose weight, control high blood pressure and cholesterol, feel emotionally better, and sleep better. (2) Control Cholesterol. Avoid a diet high in saturated fat, trans fat, & cholesterol. Limit whole milk & cream, ice cream, butter, egg yolks, processed meats (like sausage and hot dogs), and fatty meats. Choose healthy foods that are low in saturated fat, trans fat and cholesterol which include: Fruits and vegetables, fiber rich grain products (like whole grain pasta and brown rice), lean meat such as chicken, fish, nuts, seeds, and legumes. (3) Eat Better. Eat small portions. Shop at the grocery with a list and do not stray from it. Tips for a healthy diet include: Limit sodium intake to less than 1500mg daily, avoid prepackaged, processed, and fast foods, choose a diet rich in fruits, vegetables, and whole grain, high fiber foods, and limit saturated & cholesterol in your diet. (4) Manage Blood Pressure. If you have high blood pressure, you should have a cuff at home so that you can check your blood pressure regularly. Be sure you have a good cuff. An arm one is generally better than a wrist one. Bring the cuff to a doctor's appointment to validate that the measurements that your cuff are taking are accurate. Take your blood pressure twice daily when you are sitting down and relaxing. Record the numbers in a log and bring this log with you to your doctors' appointments. (5) Lose Weight if your BMI is above 25. A healthy BMI is between 19-25. To calculate Your BMI, you may use a Standard BMI Calculator on the NIH BMI websit e: <www.nhlbi.nih.gov/guidelines/obesity/BMI/bmicalc.htm>. Weigh oneself daily. If you are overweight, set a goal to lose weight. A pound a week loss if needed is a good target. (6) Reduce Blood Sugar. Limit foods and liquids with "added sugars." (Added sugars include sucrose, fructose, glucose, maltose, dextrose, high fructose corn syrup, corn syrup, concentrated fruit juice and honey). (7) Stop Smoking. If you smoke, quitting smoking is one of the best things that you can do for your health. Smoking increases your risk of heart attack, stroke, and peripheral vascular disease, which is a build-up of plaque in your arteries. Please discard all the cigarettes and lighters in your house. Have a plan for what you will do when you have the urge to smoke. Direct and second-hand smoke shortens your life as well as the lives of your family, friends and others around you. For your health and the health of those around you, please consider quitting! Proper Bending Body Mechanics: Maintain a wide stance with one foot slightly in front of the other. Keep your back straight. Bend utilizing the strength in your hips and knees. Do not bend at the waist. Maintain the lifted object at your waist-level close to your body. Avoid lifting weight that causes immediately pain or pain anywhere in the body afterwards. Smoking/Nicotine If there was ever one thing that you could do to increase your overall health, decrease your risk of cardiovascular problems by about 39% the second you make the choice, it is to STOP SMOKING. Your body's most instant gratification is the second you stop smoking. We have all heard the studies, read the articles but it is true, smoking is extremely bad for your overall health, and moreover it is detrimental to your bone health. Nicotine, IN ANY FORM, kills bone cells, prevents your body from healing fractures, and significantly prolongs healing after surgery. In spine surgery specifically, it increases your risk of not healing your bones to create a fusion and increases your risk of having a revision surgery due to this up to 60%. I know it is hard. I know it feels impossible. But there are ways. Take control of your life. We are here to help you through it. And when you are ready, ask us and we can direct you to help if you desire. Use the START Plan to Quit Smoking (please visit the Helpguide.org website listed below for more information): S = Set a quit date. Choose a date within the next 2 weeks, so you have enough time to prepare without losing your motivation to quit. If you mainly smoke at work, quit on the weekend, so you have a few days to adjust to the change. T = Tell family, friends, and co-workers that you plan to quit. Let your friends and family in on your plan to quit smoking and tell them you need their support and encouragement to stop. Look for a quit arielle who wants to stop smoking as well. You can help each other get through the rough times. A = Anticipate and plan for the challenges you'll face while quitting. Most people who begin smoking again do so within the first 3 months. You can help yourself make it through by preparing ahead for common challenges, such as nicotine withdrawal and cigarette cravings. R = Remove cigarettes and other tobacco products from your home, car, and work. Throw away all your cigarettes (no emergency pack!), lighters, ashtrays, and matches. Wash your clothes and freshen up anything that smells like smoke. Shampoo your car, clean your drapes and carpet, and steam your furniture. T = Talk to your doctor about getting help to quit. Your doctor can prescribe medication to help with withdrawal and suggest other alternatives. If you can't see a doctor, you can get many products over the counter at your local pharmacy or grocery store, including the nicotine patch, nicotine lozenges, and nicotine gum. Resources for Quitting Smoking: <https://www.[place].gov/documents/[facility]/Quit_Tobacco_Resources_for_patients_313 480_7.pdf> Supplementation: Take recommended dosages of Vitamin D and Calcium to help fortify your bones and help them to heal. See your health maintenance packet for dosages and recommended levels. DVT/VTE prophylaxis: You will be given compression stockings from the hospital. Wear these daily for the first two weeks after surgery. You may take them off at night. You may be prescribed a medication to help thin your blood. Take this as directed. If you are not prescribed this medication, early and frequent ambulation has been shown to be the best prophylaxis to deep vein thrombosis and sequelae related to this event. Discharge Disposition: HOME SELF-CARE
--- NOTE | 2024-09-30 12:39 | P.PN ---
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 Lower extremity radiculopathy 5. Neurogenic claudication Patient was seen at bedside this morning sitting up in chair with legs elevated and dressing present over the lumbar spine. Patient says her pain is under better control today than it was yesterday. She says she has been up walking a little bit using her walker. She says she has urinated since surgery without issue. Patient states no bowel movement yet, however, patient says she has been passing gas. Patient says she is looking forward to going home later today. Patient denies any other issues at this time. Objective - Vital Signs Vital signs: Vital Signs Temp 98 F 09/30/24 07:00 Pulse 76 09/30/24 07:00 Resp 16 09/30/24 07:00 BP 118/76 09/30/24 07:00 Pulse Ox 96 09/30/24 07:00 FiO2 Intake & Output 09/29/24 09/30/24 09/30/24 18:59 06:59 18:59 Intake Total 2160 Balance 2160 Intake: Oral 2160 Other: Voiding Method Toilet # Voids 3 5 1 - Exam Postop dressing was changed at bedside. Brainard are well aligned and intact. Negative for any drainage. New dressing placed over incision. Sensation is equal, symmetric, by intact throughout the extremities on exam. There is some generalized tenderness to patient near the incisions. Nontender throughout rest of exam. Patient does have good range of motion throughout bilateral upper and lower extremities on exam. 4+/5 in all major motor groups in bilateral upper and lower extremities. Negative Homans bilaterally. Negative clonus bilaterally. Negative Zamora bilaterally. Radial pulses intact, 2+ bilaterally. Cap refill under 3 seconds in digits of upper extremities. - Labs CBC & Chem 7: 09/30/24 07:17 09/30/24 07:17 Labs: Abnormal Lab Results - Last 24 Hours (Table) 09/30/24 09/30/24 Range/Units 07:17 07:17 WBC 11.0 H (3.8-10.6) k/uL RBC 3.31 L (3.80-5.40) m/uL Hgb 10.1 L (11.4-16.0) gm/dL Hct 30.4 L (34.0-46.0) % Neutrophils # 8.7 H (1.3-7.7) k/uL Sodium 135 L (137-145) mmol/L Carbon Dioxide 32 H (22-30) mmol/L Glucose 132 H (74-99) mg/dL AST 52 H (14-36) U/L Total Protein 5.8 L (6.3-8.2) g/dL Assessment and Plan Assessment: 1.L4-5 spondylosis and stenosis 2.L4-5 Grade 1 retrolisthesis 3.L4-5 HNP with severe stenosis 4. Lower extremity radiculopathy 5. Neurogenic claudication -Postop day #2 status post L4-5 posterior lateral interbody fusion Plan: 1.L4-5 spondylosis and stenosis; L4-5 Grade 1 retrolisthesis; L4-5 HNP with severe stenosis; Lower extremity radiculopathy; Neurogenic claudication -surgery performed 09/28/2024L4-5 posterior lateral interbody fusion. Patient stable bedside this morning. Dressing was changed at bedside. Pain under well- controlled with oral medication. Prescription for LSO brace was placed in chart. enforcement manager working on this at this time. Discharge home today with home care. Follow-up with Dr. Patterson office in 2 weeks 2. Appreciate medical management 3. Pain management -gabapentin; [place]; Flexeril 4. DVT prophylaxis -aspirin 5. GI prophylaxis -senna; MiraLAX 6. PT/OT -weightbearing as tolerated with walker 7. Encourage incentive spirometer use 8. Discharge planning -discharge home today with home care Time with Patient: Less than 30
--- NOTE | 2024-09-30 14:13 | P.PN ---
Subjective Progress Note Date: 09/30/24 Subjective: 09/28/2024: Patient is a 69-year-old female who follows at the clinic at the [facility]. Chronic medical conditions include asthma, fibromyalgia, GERD, hypertension hyperlipidemia osteoarthritis obstructive sleep apnea does not use CPAP IBS anxiety depression. Prior to surgery was having significant low back pain with radiculopathy. Was using a walker. Had failed conservative management. Also neurogenic claudication. Patient underwent surgical intervention of the same. This is in the L4-L5 area. Post-procedure laying in bed. Some pain is present. No nausea vomiting. Did tolerate some diet. No chest pain or shortness of breath. 09/29/2024: Patient seen and evaluated bedside. Patient states pain is still present but feels better overall. No bowel movement this morning. Denies nausea, vomiting. 09/30/2023: Patient seen evaluated bedside. Patient states pain levels have improved. She has been active with physical therapist. Denies nausea, vomit ing. Pertinent positives and negatives as discussed above, a complete review of systems was performed and all other systems are negative. Vitals: Signs Reviewed Physical Exam: General: nontoxic, no distress, appears at stated age, obese Derm: warm, dry, intact Head: atraumatic, normocephalic, symmetric Eyes: EOMI, anicteric sclera Mouth: no lip lesion, mucus membranes moist Cardiovascular: S1 S2 reg, no murmur, rubs, or gallops Lungs: CTA bilateral, no rhonchi, no rales, no accessory muscle use Abdominal: soft, non-tender to palpataion, no appreciable organomegaly MSK: Dressing over surgical site Extremities: no gross muscle atrophy, no edema, no contractures Neuro: Alert, Oriented, CNII-XII grossly intact, gait normal Psych: well appearing, appropriate affect Assessment and Plan: Patient is a 69-year-old female status post L4-5 posterolateral and interbody fusion by Dr. Patterson, postop day 2. #. Chronic insomnia Continue with trazodone 300 mg PO nightly #. Anxiety/depression Continue with trazodone 300 mg PO nightly Continue BuSpar 15 mg PO twice daily Continue with Cymbalta 60 mg PO twice daily #. Hypertension Zestril 20 mg PO daily, hold Toprol-XL 25 mg PO daily #. Hypothyroidism Synthroid 100 mcg PO daily #. GERD Protonix 40 mg PO daily #. Hyperlipidemia Zocor 40 mg nightly #. Chronic bladder dysfunction with incontinence Flomax 0.8 mg a day #. L4-L5 spondylosis stenosis lower extremity radiculopathy and neurogenic claudication Leukocytosis, anticipated outcome of surgery Mild acute blood loss anemia, anticipated outcome of surgery Status post L4-5 posterolateral and interbody fusion by Dr. Patterson, postop day 2 Pain management and bowel regimen per orthopedic Care was discussed with patient. She is medically optimized for discharge. Will continue to follow for remainder of admission. Code status: Full code Edward Franco MD PGY-1 IM Dictation was produced using [employer] dictation software. please excuse any grammatical, word or spelling errors. I saw and evaluated the patient during the vigil and critical portions of this encounter, and discussed the case in detail with the resident author of this note, I agree with the Assessment and Plan, and my changes, if any, are highlighted in blue. Objective - Vital Signs Vital signs: Vital Signs Temp 98 F 09/30/24 07:00 Pulse 76 09/30/24 07:00 Resp 16 09/30/24 07:00 BP 118/76 09/30/24 07:00 Pulse Ox 96 09/30/24 07:00 FiO2 Intake & Output 09/29/24 09/30/24 09/30/24 18:59 06:59 18:59 Intake Total 2160 Balance 2160 Intake: Oral 2160 Other: Voiding Method Toilet # Voids 3 5 1 - Labs CBC & Chem 7: 09/30/24 07:17 09/30/24 07:17 Labs: Abnormal Lab Results - Last 24 Hours (Table) 09/30/24 09/30/24 Range/Units 07:17 07:17 WBC 11.0 H (3.8-10.6) k/uL RBC 3.31 L (3.80-5.40) m/uL Hgb 10.1 L (11.4-16.0) gm/dL Hct 30.4 L (34.0-46.0) % Neutrophils # 8.7 H (1.3-7.7) k/uL Sodium 135 L (137-145) mmol/L Carbon Dioxide 32 H (22-30) mmol/L Glucose 132 H (74-99) mg/dL AST 52 H (14-36) U/L Total Protein 5.8 L (6.3-8.2) g/dL
[2024-09-30 15:02] VITALS: BP 113/72; PULSE 80; RESP 18; TEMP 97.7
== END 2024-09-30 17:06 | disposition home health service (06) ==
LOC: OR 08:52 → 4SSUR 12:57
PROVIDERS: ADMIT Orthopaedic Surgery; ATTEND Orthopaedic Surgery
DX: M51.16 Intervertebral disc disorders with radiculopathy, lumbar region (principal); M43.16 Spondylolisthesis, lumbar region; M48.062 Spinal stenosis, lumbar region with neurogenic claudication; D72.829 Elevated white blood cell count, unspecified; D62 Acute posthemorrhagic anemia; K21.9 Gastro-esophageal reflux disease without esophagitis; G47.33 Obstructive sleep apnea (adult) (pediatric); E78.5 Hyperlipidemia, unspecified; I10 Essential (primary) hypertension; F41.9 Anxiety disorder, unspecified; F32.A Depression, unspecified; F51.04 Psychophysiologic insomnia; E03.9 Hypothyroidism, unspecified; N31.9 Neuromuscular dysfunction of bladder, unspecified; N39.498 Other specified urinary incontinence; J45.909 Unspecified asthma, uncomplicated; M19.91 Primary osteoarthritis, unspecified site; E66.01 Morbid (severe) obesity due to excess calories; Z68.43 Body mass index [BMI] 50.0-59.9, adult; Z87.891 Personal history of nicotine dependence; Z79.82 Long term (current) use of aspirin; Z79.890 Hormone replacement therapy; Z79.899 Other long term (current) drug therapy; Z88.0 Allergy status to penicillin; Z88.1 Allergy status to other antibiotic agents
CPT/HCPCS: 22633; 22853; 20931; 20936; 96376; 96365 ×2; 96375; 94640; 97116; 97161; 97166; 80053 ×2; 83735; 85025 ×2; 72100; 72131; G0378 ×3; G0379; C1713; C1762; C1734; J2250; J0330; J2710; J0690 ×2; J2405; J2003; J3010; P9045; J1885 ×2; J2704; J2371; J0665; J1596